=== PATIENT | female | born 1955 | race Caucasian/White ===

== ENCOUNTER 2023-11-09 10:46 | Outpatient (OUT) | payer MEDICARE, MEDICAID, SELFPAY ==
[2023-11-09 11:12] LABS: Basophils Percent Auto 0.5 % (0.2-2.0); Eosinophils Absolute Auto 0.5 10^3/uL (0.0-0.7); Hematocrit 41.3 % (36.0-48.0); Hemoglobin 13.5 g/dL (12.0-16.0); Immature Granulocytes Abs Auto 0.01 10^3/uL (0.00-0.03); Immature Granulocytes Pct Auto 0.2 % (0.0-0.5); Lymphocytes Absolute Auto 2.2 10^3/uL (1.2-3.8); Lymphocytes Percent Auto 34.5 % (20.5-60.0); Mean Corpuscular HGB Conc 32.7 g/dL (29.9-35.2); Mean Corpuscular Volume 88.6 fL (81.0-99.0); Mean Platelet Volume 10.2 fL (9.5-13.5); Monocytes Absolute Auto 0.4 10^3/uL (0.3-0.8); Monocytes Percent Auto 6.3 % (1.7-12.0); Neutrophils Absolute Auto 3.3 10^3/uL (1.4-6.5); Neutrophils Percent Auto 51.5 % (43.0-75.0); Platelet Count 206 10^3/uL (150-450); Red Blood Count 4.66 10^6/uL (4.20-5.40); White Blood Count 6.4 10^3/uL (4.0-11.0)
[2023-11-09 12:00] LABS: Free T4 1.78 ng/dL (0.76-1.46)
[2023-11-09 12:14] LABS: Estimated Average Glucose 103 mg/dL; Glycohemoglobin A1C 5.2 % (4.5-6.2)
[2023-11-09 12:24] LABS: Alanine Aminotransferase 36 U/L (14-59); Albumin Globulin Ratio 0.9; Albumin Level 3.5 g/dL (3.4-5.0); Alkaline Phosphatase 59 U/L (46-116); Anion Gap 11.7; Aspartate Amino Transferase 19 U/L (15-37); BUN Creatinine Ratio 15.9; Bilirubin Direct 0.2 mg/dL (0.0-0.2); Bilirubin Total 0.7 mg/dL (0.2-1.0); Calcium 9.5 mg/dL (8.5-10.1); Carbon Dioxide 30.2 mmol/L (21.0-32.0); Chloride 106 mmol/L (98-107); Chol HDL Ratio 2.9; Cholesterol 164 mg/dL (<=200); Estimated GFR (African America 51 (>=60); Estimated GFR (Non-African Ame 42 (>=60); Free T3 2.25 pg/mL (2.18-3.98); Globulin 3.7 g/dL; Glucose 90 mg/dL (74-106); HDL Cholesterol 57 mg/dL (40-60); LDL Cholesterol Calculated 90.2 mg/dL; Potassium 3.9 mmol/L (3.5-5.1); Sodium 144 mmol/L (136-145); Thyroid Stimulating Hormone 0.595 uIU/mL (0.358-3.740); Total Protein 7.2 g/dL (6.4-8.2); Triglycerides 84 mg/dL (<=150); VLDL CHOLESTEROL 16.8 mg/dL
== END 2023-11-09 10:47 | disposition home or self-care (01) ==
LOC: LAB 10:50
PROVIDERS: PCP Family Medicine; Visit Provider Family Medicine
DX: R73.03 Prediabetes (principal); Z79.899 Other long term (current) drug therapy; E78.5 Hyperlipidemia, unspecified; E03.9 Hypothyroidism, unspecified
CPT/HCPCS: 36415; 80048; 80061; 80076; 83036; 84439; 84443; 84481; 85025

== ENCOUNTER 2024-02-21 15:13 | Outpatient (OUT) | payer MEDICARE, MEDICAID, SELFPAY ==
--- NOTE | 2024-02-21 15:45 | MM_ITS ---
Patient Name: HEIDI ZAVALA MR#: [id number] : 1955 Exam Date: 02/21/2024 Ordering Doctor: DR Carroll Archibald . RADIOLOGY REPORT PROCEDURE: MM TOMOSYNTHESIS SCREENING BI COMPARISON: MG MAMM SCREEN DARNELL W CAD, 06/20/2018. INDICATIONS: Screening Calculator Name NCI Breast Cancer Risk Assessment Tool 5 Year Breast Cancer Risk 2.80% Lifetime Breast Cancer Risk 7.80% Personal Breast Cancer No Personal Ovarian Cancer No Treatments None Family Cancers None LOCATION: [facility] BREAST COMPOSITION: There are scattered areas of fibroglandular density. FINDINGS: DIAGNOSTIC CATEGORY 1--NEGATIVE. RIGHT BREAST: No significant suspicious finding. No significant change has occurred. LEFT BREAST: No significant suspicious finding. No significant change has occurred. RECOMMENDATIONS: ROUTINE MAMMOGRAM AND CLINICAL EVALUATION IN 12 MONTHS. PLEASE NOTE: A NORMAL MAMMOGRAM DOES NOT EXCLUDE THE POSSIBILITY OF BREAST CANCER. A CLINICALLY SUSPICIOUS PALPABLE LUMP SHOULD BE BIOPSIED. Dictated by: Sam Ruiz M.D. on 02/22/2024 at 07:23 Approved by: Sam Ruiz M.D. on 02/22/2024 at 07:25
== END 2024-02-21 15:14 | disposition home or self-care (01) ==
LOC: MAMMO 15:14
PROVIDERS: PCP Family Medicine; Visit Provider Family Medicine
DX: Z12.31 Encounter for screening mammogram for malignant neoplasm of breast (principal)
CPT/HCPCS: 77063; 77067

== ENCOUNTER 2024-10-31 09:18 | Outpatient (OUT) | payer MEDICARE, MEDICAID, SELFPAY ==
[2024-10-31 09:40] LABS: Basophils Percent Auto 0.2 % (0.2-2.0); Eosinophils Absolute Auto 0.2 10^3/uL (0.0-0.7); Eosinophils Percent Auto 2.6 % (0.9-7.0); Hematocrit 41.5 % (36.0-48.0); Hemoglobin 13.8 g/dL (12.0-16.0); Immature Granulocytes Abs Auto 0.01 10^3/uL (0.00-0.03); Immature Granulocytes Pct Auto 0.2 % (0.0-0.5); Lymphocytes Absolute Auto 2.5 10^3/uL (1.2-3.8); Lymphocytes Percent Auto 43.1 % (20.5-60.0); Mean Corpuscular HGB Conc 33.3 g/dL (29.9-35.2); Mean Corpuscular Hemoglobin 29.6 pg (26.7-34.0); Mean Corpuscular Volume 88.9 fL (81.0-99.0); Mean Platelet Volume 10.4 fL (9.5-13.5); Monocytes Absolute Auto 0.4 10^3/uL (0.3-0.8); Monocytes Percent Auto 6.3 % (1.7-12.0); Neutrophils Absolute Auto 2.7 10^3/uL (1.4-6.5); Neutrophils Percent Auto 47.6 % (43.0-75.0); Platelet Count 165 10^3/uL (150-450); Red Blood Count 4.67 10^6/uL (4.20-5.40); Red Cell Distribution Width 12.5 % (11.0-15.0); White Blood Count 5.7 10^3/uL (4.0-11.0)
[2024-10-31 09:53] LABS: Estimated Average Glucose 105 mg/dL; Glycohemoglobin A1C 5.3 % (4.5-6.2)
[2024-10-31 10:29] LABS: Alanine Aminotransferase 23 U/L (14-59); Albumin Globulin Ratio 1.1; Albumin Level 3.7 g/dL (3.4-5.0); Alkaline Phosphatase 60 U/L (46-116); Anion Gap 10.6; Aspartate Amino Transferase 15 U/L (15-37); BUN Creatinine Ratio 23.4; Bilirubin Direct 0.2 mg/dL (0.0-0.2); Bilirubin Total 0.7 mg/dL (0.2-1.0); Calcium 9.4 mg/dL (8.5-10.1); Carbon Dioxide 31.4 mmol/L (21.0-32.0); Chloride 107 mmol/L (98-107); Chol HDL Ratio 2.7; Cholesterol 163 mg/dL (<=200); Estimated GFR (African America 59 (>=60 mL/min/1.73m^2); Estimated GFR (Non-African Ame 48 (>=60 mL/min/1.73m^2); Free T3 2.76 pg/mL (2.18-3.98); Globulin 3.3 g/dL; Glucose 92 mg/dL (74-106); HDL Cholesterol 60 mg/dL (40-60); LDL Cholesterol Calculated 77.8 mg/dL; Sodium 145 mmol/L (136-145); Triglycerides 126 mg/dL (<=150); VLDL CHOLESTEROL 25.2 mg/dL
[2024-10-31 12:00] LABS: Free T4 1.68 ng/dL (0.76-1.46)
== END 2024-10-31 09:19 | disposition home or self-care (01) ==
LOC: LAB 09:20
PROVIDERS: PCP Family Medicine; Visit Provider Family Medicine
DX: R73.03 Prediabetes (principal); N18.31 Chronic kidney disease, stage 3a; Z79.899 Other long term (current) drug therapy; E78.5 Hyperlipidemia, unspecified; E03.9 Hypothyroidism, unspecified
CPT/HCPCS: 36415; 80048; 80061; 80076; 83036; 84439; 84443; 84481; 85025

== ENCOUNTER 2025-06-03 13:56 | Outpatient (OUT) | payer MEDICARE, MEDICAID, SELFPAY ==
--- OUTSIDE RECORDS SUMMARY | 2025-06-03 14:01 | XMS_ITS | Clinical Summary ---
Author Organization [facility] Address [address] [place] [address] Care Team Providers Care Client Application Support Engineer Name Role Phone Carroll Archibald MD Primary Care Provider [phone] Carroll Archibald MD Unavailable Allergies No known active allergies Medications latanoprost (Xalatan) 0.005 % ophthalmic solution Administer 1 drop into both eyes in the morning. Active calcium carbonate 1500 (600 Ca) MG tablet Take 1 tablet by mouth in the morning and 1 tablet before bedtime. Active B Complex-C (b complex-vitamin c) tablet Take 1 tablet by mouth in the morning. Active cholecalciferol (Vitamin D-3) 25 MCG (1000 UT) tablet Take 1,000 Units by mouth in the morning. Active cyanocobalamin (Vitamin B-12) 500 MCG tablet Take 500 mcg by mouth in the morning. Active ondansetron ODT (Zofran-ODT) 4 MG disintegrating tabletIndications: COVID-19 Take 1 tablet (4 mg) by mouth every 6 (six) hours if needed for nausea or vomiting 20 tablet 1 10/12/19 24 Active celecoxib (CeleBREX) 200 MG capsuleIndications :Generalized osteoarthritis of multiple sites Take 1 capsule (200 mg) by mouth Daily 90 capsule 3 04/12/20 24 Active dicyclomine (Bentyl) 20 MG tabletIndications: Irritable bowel syndrome with diarrhea Take 1 tablet (20 mg) by mouth 3 (three) times a day as needed (3 times daily as needed) 90 tablet 5 07/02/20 24 Active clobetasol (Temovate) 0.05 % cream 07/13/20 24 Active estradiol (Estrace) 0.1 MG/GM vaginal cream 08/20/20 24 Active omeprazole (PriLOSEC) [address] capsuleIndications :Gastroesophageal reflux disease without esophagitis TAKE 1 CAPSULE TWICE DAILY 180 capsule 3 12/04/19 25 Active ALPRAZolam (Xanax) 0.5 MG tabletIndications: Generalized anxiety disorder TAKE 1 TABLET 3 TIMES A DAYAS NEEDED FOR ANXIETY 270 tablet 01/25/20 25 Active atorvastatin (Lipitor) 10 MG tabletIndications: Dyslipidemia Take 1 tablet (10 mg) by mouth at bedtime 90 tablet 3 01/25/20 25 Active levothyroxine (Synthroid, Levoxyl) 88 MCG tabletIndications: Adult hypothyroidism TAKE 1 TABLET EVERY MORNINGBEFORE A MEAL 90 tablet 3 02/26/20 25 Active Active Problems Problem Noted Date Diagnosed Date Lichen sclerosus 07/02/2024 CKD stage 3b, GFR 30-44 ml/min 04/12/2024 Assessment & Plan (04/12/2024 1:55 PM EDT): Renal function stable Adult hypothyroidism 10/25/2023 Arthralgia of left ankle or foot 10/25/2023 Chronic constipation 10/25/2023 Dyslipidemia 10/25/2023 Generalized anxiety disorder 10/25/2023 Assessment & Plan (10/17/2024 2:22 PM EST): Symptoms stable without celexa and monitor. Use xanax PRN. Assessment & Plan (04/12/2024 1:54 PM EDT): Symptoms controlled with medication and continue. Use xanax PRN. Assessment & Plan (10/25/2023 3:39 PM EST): Symptoms controlled with medication and continue. Use xanax PRN. Gastroesophageal reflux disease without esophagi tis 10/25/2023 Assessment & Plan (10/17/2024 2:21 PM EST): Symptoms controlled with omeprazole and continue. Assessment & Plan (04/12/2024 1:54 PM EDT): Symptoms controlled with omeprazole and continue. Assessment & Plan (10/25/2023 3:38 PM EST): Symptoms controlled with omeprazole and continue. Major depressive disorder, recurrent episode, mi ld 10/25/2023 Assessment & Plan (10/17/2024 2:22 PM EST): Symptoms stable without celexa and monitor. Assessment & Plan (04/12/2024 1:54 PM EDT): Symptoms controlled with medication and continue. Assessment & Plan (10/25/2023 3:39 PM EST): Symptoms controlled with medication and continue. Generalized osteoarthritis of multiple sites 12/2023 Assessment & Plan (10/17/2024 2:22 PM EST): Pain stable and continue celebrex. Increase activity and walk regularly. Assessment & Plan (04/12/2024 1:54 PM EDT): Pain stable and continue celebrex. Increase activity and walk regularly. Assessment & Plan (10/25/2023 3:39 PM EST): Pain stable and continue celebrex. Increase activity and walk regularly. Osteopenia of left thigh 10/25/2023 Sigmoid diverticulitis 10/25/2023 Sigmoid diverticulosis 10/25/2023 Vertigo 10/25/2023 Prediabetes 10/25/2023 Primary osteoarthritis of right knee 10/25/2023 Encounter for long-term current use of medicatio n 10/25/2023 Family History Medical History Relation Name Comments Hypertension Father Alzheimer's disease Mother Relation Name Status Comments Father Mother Alive Social History Tobacco Use Types Packs/Day Years Used Date Smoking Tobacco: Former Cigarettes 1 29 0 08/22/1968 - 08/22/1997 Tobacco Cessation:Counseling Given: Not Answered Alcohol Use Standard Drinks/Week Comments Not Currently 0 (1 standard drink = 0.6 oz pur e alcohol) Social Connection and Isolation Panel Answer Date Recorded In a typical week, how many times do you talk on the phone with family, friends, or neighbors? More than three times a week 10/18/2023 How often do you get togethe r with friends or relatives? Once a week 10/18/2023 How often do you attend chur ch or rastafarian services? Never 10/18/2023 Do you belong to any clubs o r organizations such as confucianist groups, unions, fraternal or athletic groups, or school groups? No 10/18/2023 How often do you attend meet ings of the clubs or organizations you belong to? Never 10/18/2023 Are you , , di vorced, , never , or living with a partner? 10/18/2023 AUDIT-C Answer Date Recorded Q1: How often do you have a drink containing alcohol? Never 10/18/2023 Q2: How many drinks containi ng alcohol do you have on a typical day when you are drinking? Patient does not drink Q3: How often do you have si x or more drinks on one occasion? Never 10/18/2023 Overall Financial Resource Strain (CARDIA) Answe r Date Recorded How hard is it for you to pa y for the very basics like food, housing, medical care, and heating? Not very hard 10/18/2023 [facility] - Occupational Stress Questionnaire Answer Date Recorded Do you feel stress - tense, restless, nervous, or anxious, or unable to sleep at night because your mind is troubled all the time - these days? Rather much 10/18/2023 Exercise Vital Sign Answer Date Recorde d On average, how many days pe r week do you engage in moderate to strenuous exercise (like a brisk walk)? 0 days 10/18/2023 On average, how many minutes do you engage in exercise at this level? 0 min 10/18/2023 Hunger Vital Sign Answer Date Recorded Within the past 12 months, y ou worried that your food would run out before you got the money to buy more. Never true 10/18/19 24 Within the past 12 months, t he food you bought just didn't last and you didn't have money to get more. Never true 10/18/2023 PRAPARE - Transportation Answer Date Re corded In the past 12 months, has l ack of transportation kept you from medical appointments or from getting medications? Patient declined 10/18/2023 In the past 12 months, has l ack of transportation kept you from meetings, work, or from getting things needed for daily living? Patient declined 10/18/2023 Housing Stability Vital Sign Answer Richard e Recorded In the last 12 months, was t here a time when you were not able to pay the mortgage or rent on time? No 10/18/2023 In the last 12 months, how many places have you lived? 1 10/18/2023 In the last 12 months, was t here a time when you did not have a steady place to sleep or slept in a long term (including now)? No 10/18/2023 Comments Unknown Sex and Gender Information Value Date Recorded Sex Assigned at Not on file Legal Sex Female 6:53 PM EDT Gender Identity Not on file Sexual Orientation Not on file Last Filed Vital Signs Vital Sign Reading Time Taken Comments Blood Pressure 140/66 10/17/2024 1:19 PM EST Pulse 82 10/17/2024 1:19 PM EST Temperature 36.6 C (97.8 F) 10/17/2024 1:19 PM EST Respiratory Rate 22 10/17/2024 1:19 PM EST Oxygen Saturation 96% 10/17/2024 1:19 PM EST Inhaled Oxygen Concentration - - Weight 70.8 kg (156 lb) 10/17/2024 1:19 PM EST Height 154.9 cm (5' 1 ) 10/17/2024 1:19 PM EST Body Mass Index 29.48 10/17/2024 1:19 PM EST Plan of Treatment Health Maintenance Due Date Last Done Comments CT Colonography 1955 FIT-DNA 1955 FIT 1955 FOBT 1955 Medicare Annual Wellness (AWV) 1955 Sigmoidoscopy 1955 Pneumococcal Vaccine: 65+ Years (1 of 1 - PCV) 003 Mammogram 02/21/2025 02/22/2024 Influenza Vaccine (#1) 2025 Colonoscopy 02/07/2029 02/07/2019 Colorectal Cancer Screening 02/07/2029 Procedures Procedure Name Priority Date/Time Associated Diagnosis Comments MM TOMOSYNTHESIS SCREENING BI 02/22/2024 7:25 AM EDT from Last 3 Months or Most Recently Relevant to Health Maintenance Results * MM TOMOSYNTHESIS SCREENING BI (02/22/2024 7:25 AM EDT) Anatomical Region Laterality Modality Other 02/22/2024 7:25 AM EDT Narrative 02/22/2024 7:26 [place] [address] Mammography Report Signed Patient: AMBREEN THACKER MR#: [id number] : 1955 Acct:[id number] Age/Sex: 69 / F ADM Date: 02/21/24 Loc: MAMMO Attending Dr: Carroll Archibald M.D. Ordering Physician: Carroll Archibald M.D. Results: Date of Service: 02/21/24 Follow Up: Procedure(s): MM tomosynthesis screening BI Accession Number(s): [id number] cc: Carroll Archibald M.D. Patient Name: AMBREEN THACKER MR#: [id number] : 1955 Exam Date: 02/21/2024 Ordering Doctor: DR Carroll Archibald . RADIOLOGY REPORT PROCEDURE: MM TOMOSYNTHESIS SCREENING BI COMPARISON: MG MAMM SCREEN DARNELL W CAD, 06/20/2018. INDICATIONS: Screening Calculator Name NCI Breast Cancer Risk Assessment Tool 5 Year Breast Cancer Risk 2.80% Lifetime Breast Cancer Risk 7.80% Personal Breast Cancer No Personal Ovarian Cancer No Treatments None Family Cancers None LOCATION: [facility] BREAST COMPOSITION: There are scattered areas of fibroglandular density. FINDINGS: DIAGNOSTIC CATEGORY 1--NEGATIVE. RIGHT BREAST: No significant suspicious finding. No significant change has occurred. LEFT BREAST: No significant suspicious finding. No significant change has occurred. RECOMMENDATIONS: ROUTINE MAMMOGRAM AND CLINICAL EVALUATION IN 12 MONTHS. PLEASE NOTE: A NORMAL MAMMOGRAM DOES NOT EXCLUDE THE POSSIBILITY OF BREAST CANCER. A CLINICALLY SUSPICIOUS PALPABLE LUMP SHOULD BE BIOPSIED. Dictated by: Sam Ruiz M.D. on 02/22/2024 at 07:23 Approved by: Sam Ruiz M.D. on 02/22/2024 at 07:25 Dictated By: Sam Ruiz M.D. Signed By: 02/22/24725 DD/ 4 TD/TT: Firestop/Containment Worker: Procedure Note Radiology, Radiologist, MD - 02/22/2024 [place] [address] Mammography Report Signed Patient: AMBREEN THACKER KMR#: [id number] : 1955cct:[id number] Age/Sex: 69 / FADM Date: 02/21/24 Loc: MAMMO Attending Dr: Carroll Archibald M.D. Ordering Physician: Carroll Archibald M.D.Results: Date of Service: 02/21/24Follow Up: Procedure(s): MM tomosynthesis screening BI Accession Number(s): [id number] cc: Carroll Archibald M.D. Patient Name: AMBREEN THACKER MR#: [id number] : 1955 Exam Date: 02/21/2024 Ordering Doctor: DR Carroll Archibald . RADIOLOGY REPORT PROCEDURE: MM TOMOSYNTHESIS SCREENING BI COMPARISON: MG MAMM SCREEN DARNELL W CAD, 06/20/2018. INDICATIONS: Screening Calculator Name NCI Breast Cancer Risk Assessment Tool 5 Year Breast Cancer Risk 2.80% Lifetime Breast Cancer Risk 7.80% Personal Breast Cancer No Personal Ovarian Cancer No Treatments None Family Cancers None LOCATION: [facility] BREAST COMPOSITION: There are scattered areas of fibroglandulardensity. FINDINGS: DIAGNOSTIC CATEGORY 1--NEGATIVE. RIGHT BREAST: No significant suspicious finding. No significant changehas occurred. LEFT BREAST: No significant suspicious finding. No significant changehas occurred. RECOMMENDATIONS: ROUTINE MAMMOGRAM AND CLINICAL EVALUATION IN 12 MONTHS. PLEASE NOTE: A NORMAL MAMMOGRAM DOES NOT EXCLUDE THE POSSIBILITY OFBREAST CANCER. A CLINICALLY SUSPICIOUS PALPABLE LUMP SHOULD BE BIOPSIED. Dictated by: Sam Ruiz M.D. on 02/22/2024 at 07:23 Approved by: Sam Ruiz M.D. on 02/22/2024 at 07:25 Dictated By: Sam Ruiz M.D. Signed By:02/22/24725 DD/ TD/TT: Firestop/Containment Worker: Carroll Archibald MD [facility] Final Result from Last 3 Months or Most Recently Relevant to Health Maintenance Insurance MEDICARE MEDICAID [place] Care Teams Client Application Support Engineer Relationship Specialty Start Date End Date Carroll Archibald MD PCP - General Family Medicine 10/04/23 Carroll Archibald MD [address] [place] [address] PCP - [facility] 09/28/24
--- OUTSIDE RECORDS SUMMARY | 2025-06-03 14:01 | XMS_ITS | Clinical Summary ---
Author Organization [employer] tem Address [id number] [address] [place] [address] Care Team Providers Care Foreign Language Instructor Name Role Phone Carroll Archibald MD Primary Care Provider [phone] Allergies No known active allergies Medications omeprazole (PriLOSEC) 20 mg capsule Take 1 capsule (20 mg total) by mouth in the morning and 1 capsule (20 mg total) before bedtime. Active celecoxib (CeleBREX) 200 mg capsule Take 1 capsule (200 mg total) by mouth in the morning. Active ALPRAZolam (XANAX) 0.25 mg tablet Take 2 tablets (0.5 mg total) by mouth 3 (three) times a day as needed. Active predniSONE (DELTASONE) 20 mg tablet Take 1 tablet (20 mg total) by mouth as needed. Active cholecalciferol , vitamin D3, (VITAMIN D3) 1,000 units tablet Take 1 tablet (1,000 Units total) by mouth in the morning. Active calcium carbonate (OS-CARMEN) 600 mg (1,500 mg) tablet Take 1 tablet (600 mg total) by mouth in the morning. Active B-complex with vitamin C tablet Take 1 tablet by mouth in the morning. Active latanoprost (XALATAN) 0.005 % ophthalmic solution Administer 1 drop to both eyes in the morning. 9 Active atorvastatin (LIPITOR) 10 mg tablet Take 1 tablet (10 mg total) by mouth in the morning. Active levothyroxine (SYNTHROID, LEVOTHROID) 88 MCG tablet Take 1 tablet (88 mcg total) by mouth in the morning. 4 Active dicyclomine (BENTYL) 20 mg tablet Take 1 tablet (20 mg total) by mouth Three times daily as needed. Active meclizine (ANTIVERT) 25 mg tablet Chew 1 tablet (25 mg total) and swallow daily as needed for dizziness. Active acidophilus-pec tin, citrus 25 million cell -100 mg tablet Take 1 tablet by mouth daily with breakfast. Active estradioL (ESTRACE) 0.01 % (0.1 mg/gram) vaginal creamIndication s:Vaginal irritation Insert 1 g into the vagina in the morning. 42.5 g 1 5 Active clobetasoL (TEMOVATE) 0.05 % creamIndication s:Vulvar itching Apply 1 Application topically in the morning and 1 Application before bedtime. 30 g 5 Active clobetasoL (TEMOVATE) 0.05 % cream Apply 1 Application topically in the morning and 1 Application before bedtime. 30 g 5 Active Active Problems No known active problems Resolved Problems Problem Noted Date Diagnosed Date Resolved Date Chest pain, unspecified type 10/07/2023 07/12/2024 Encounters Date Type Department Care Team Description 05/30/2025 Refill [facility] [address] [facility] [place] [address] Tyra Neal RN from Last 3 Months Immunizations Immunization Administration Dates Next Due COVID-19, mRNA, LNP-S, PF, 30mcg/0.3mL Dose 10/20,10/14/2020 Family History Medical History Relation Name Comments Ulcers Father Alzheimer's disease Mother Mom Arthritis Mother Mom Hypertension Mother Mom COPD Sister Sister Relation Name Status Comments Brother Alive Father Mother Mom Sister Sister Alive Son Alive Social History Tobacco Use Types Packs/Day Years Used Date Smoking Tobacco: Former Cigarettes 1 32.6 0 01/20/1969 - 2001 Smokeless Tobacco: Never Tobacco Cessation:Counseling Given: Not Answered Alcohol Use Standard Drinks/Week Comments Not Currently 0 (1 standard drink = 0.6 oz pur e alcohol) Childcare Answer Date Recorded Childcare Unknown 01/26/2019 Employment Answer Date Recorded Employment Unknown 01/26/2019 Hunger Screening Answer Date Recorded Within the past 12 months we worried whether our food would run out before we got money to buy more. Never True 11/05/2024 Within the past 12 months th e food we bought just didn't last and we didn't have money to get more. Never True 11/05/2024 Purpose - Life Answer Date Recorded Purpose and direction in life Unknown Comments No Sex and Gender Information Value Date Recorded Sex Assigned at Not on file Legal Sex Female 11:39 AM EDT Gender Identity Female 11/14/2023 9:58 AM EDT Sexual Orientation Not on file Last Filed Vital Signs Vital Sign Reading Time Taken Comments Blood Pressure 152/80 02/19/2025 10:15 AM EDT Pulse 80 05/03/2024 9:50 AM EDT Temperature 36.9 C (98.4 F) 10/06/2023 11:03 PM EST Respiratory Rate 16 10/06/2023 11:45 PM EST Oxygen Saturation 98% 05/03/2024 9:50 AM EDT Inhaled Oxygen Concentration - - Weight 69.7 kg (153 lb 9.6 oz) 02/19/2025 10:15 AM EDT Height 154.9 cm (5' 1 ) 02/19/2025 10:15 AM EDT Body Mass Index 29.02 02/19/2025 10:15 AM EDT Plan of Treatment Health Maintenance Due Date Last Done Comments Depression Screening 1965 Adult BMI Follow Up Plan 1971 DTaP,Tdap and Td Vaccines (1 - Tdap) 01/29/1972 Zoster (Shingles) Vaccine (1 of 2) 2003 Fall Risk Screening 2018 COVID-19 Vaccine (5 - 2024-2 6 season) 2025 03/17/2022, 07/22/2021, 11/04/2020, Additional history exists Influenza Vaccine 04/22/2025 Adult BMI Screening 02/19/2026 02/19/2025 Tobacco Screening 02/19/2026 02/19/2025 Colonoscopy 02/07/2029 02/07/2019 Medical Devices Implanted Type Area Neon Sign Maker Device Identifier Shelf Expiration Date Model / Serial / Lot Lens Iol Ultrasert 15.5d - [id number] - [id number] Implanted:Qty: 1 on 02/12/2020 by Hafsa Landeros MD at [facility] Lens Left: [employer] 07/21/2022 [id number] 15.5 / [id number] / NA Insurance MEDICARE MEDICAID [place] Care Teams Foreign Language Instructor Relationship Specialty Start Date End Date Carroll Archibald MD PCP - General Family Medicine 01/26/19
--- OUTSIDE RECORDS SUMMARY | 2025-06-03 14:01 | XMS_ITS | Encounter Summary ---
Author Organization [employer] tem Address [facility] [id number] [address] [place] [address] Care Team Providers Care Well Shooter Name Role Phone Carroll Archibald MD Primary Care Provider [phone] Encounter Details Date Type Department Care Team (Late st Contact Info) Description 05/30/2025 Refill [facility] [address] [place] [address] Tyra Neal RN Social History Tobacco Use Types Packs/Day Years Used Date Smoking Tobacco: Former Cigarettes 1 32.6 0 01/20/1969 - 2001 Smokeless Tobacco: Never Alcohol Use Standard Drinks/Week Comments Not Currently [...] AM EDT Sexual Orientation Not on file documented as of this encounter Miscellaneous Notes * Telephone Encounter - Tyra Neal RN - 05/30/2025 3:00 PM EDT Pt called stating that her medicare prescription coverage is going to go up. Pt is requesting a refill of the clabetesol to be sent to [facility] [place]. Please advise. - Tyra Neal RN 253:02 PM documented in this encounter Plan of Treatment Not on file documented as of this encounter Visit Diagnoses Not on filedocumented in this encounter Care Teams Well Shooter Relationship Specialty Start Date End Date Carroll Archibald MD PCP - General Family Medicine 01/26/19 documented as of this encounter
--- OUTSIDE RECORDS SUMMARY | 2025-06-03 14:01 | XMS_ITS | Encounter Summary ---
Author Organization [facility] Address [address] [place] [address] Care Team Providers Care Statistical Developer Name Role Phone Carroll Archibald MD Primary Care Provider [phone] Carroll Archibald MD Unavailable Encounter Details Date Type Department Care Team (Late st Contact Info) Description 02/22/2024 Clinisync Result Encounter [facility] External Department Unsolicited Carroll Archibald MD [address] [place] [address] Social History Tobacco Use Types Packs/Day Years Used Date Smoking Tobacco: Former Cigarettes 1 29 0 08/22/1968 - 08/22/1997 Alcohol Use Standard Drinks/Week Comments Not Currently [...] often do you attend chur ch or druze services? Never 10/18/2023 Do you belong to any clubs o r organizations such as baptist groups, unions, fraternal or athletic groups, or [...] care, and heating? Not very hard 10/18/2023 [facility] - Occupational Stress [...] place to sleep or slept in a group home (including now)? No 10/18/2023 Comments Unknown Sex and Gender Information Value Date Recorded Sex Assigned at Not on file Legal Sex Female 6:53 PM EDT Gender Identity Not on file Sexual Orientation Not on file documented as of this encounter Plan of Treatment Not on file documented as of this encounter Procedures Procedure Name Priority Date/Time Associated Diagnosis Comments MM TOMOSYNTHESIS SCREENING BI 02/22/2024 7:25 AM EDT documented in this encounter Results * MM TOMOSYNTHESIS SCREENING BI (02/22/2024 7:25 AM EDT) Anatomical Region Laterality Modality Other 02/22/2024 7:25 AM EDT Narrative 02/22/2024 7:26 [place] [address] Mammography Report Signed Patient: AMBREEN THACKER MR#: [id number] : 1955 Acct:[id number] Age/Sex: 69 / F ADM Date: 02/21/24 Loc: MAMMO Attending Dr: Carroll Archibald M.D. Ordering Physician: Carroll Archibald M.D. Results: Date of Service: 02/21/24 Follow Up: Procedure(s): MM tomosynthesis screening BI Accession Number(s): [id number] cc: Carroll Archibald M.D. Patient Name: AMBREEN THACKER MR#: [id number] : 1955 Exam Date: 02/21/2024 Ordering Doctor: DR Carroll Archibald . RADIOLOGY REPORT PROCEDURE: MM TOMOSYNTHESIS SCREENING BI COMPARISON: MG MAMM SCREEN DARNELL W CAD, 06/20/2018. INDICATIONS: Screening Calculator Name NCI Breast Cancer Risk Assessment Tool 5 Year Breast Cancer Risk 2.80% Lifetime Breast Cancer Risk 7.80% Personal Breast Cancer No Personal Ovarian Cancer No Treatments None Family Cancers None LOCATION: [facility] BREAST COMPOSITION: There are scattered areas [...] M.D. Signed By: 02/22/24725 DD/ 4 TD/TT: Body Straightener: Procedure Note Radiology, Radiologist, MD - 02/22/2024 [place] [address] Mammography Report Signed Patient: AMBREEN THACKER KMR#: [id number] : 1955cct:[id number] Age/Sex: 69 / FADM Date: 02/21/24 Loc: MAMMO Attending Dr: Carroll Archibald M.D. Ordering Physician: Carroll Archibald M.D.Results: Date of Service: 02/21/24Follow Up: Procedure(s): MM tomosynthesis screening BI Accession Number(s): [id number] cc: Carroll Archibald M.D. Patient Name: AMBREEN THACKER MR#: [id number] : 1955 Exam Date: 02/21/2024 Ordering Doctor: DR Carroll Alanis RADIOLOGY REPORT PROCEDURE: MM TOMOSYNTHESIS SCREENING BI COMPARISON: MG MAMM SCREEN DARNELL W CAD, 06/20/2018. INDICATIONS: Screening Calculator Name NCI Breast Cancer Risk Assessment Tool 5 Year Breast Cancer Risk 2.80% Lifetime Breast Cancer Risk 7.80% Personal Breast Cancer No Personal Ovarian Cancer No Treatments None Family Cancers None LOCATION: [facility] BREAST COMPOSITION: There are scattered areas [...] By: Sam Ruiz M.D. Signed By:02/22/24725 DD/ 4 TD/TT: Body Straightener: Carroll Archibald MD [facility] Final Result documented in this encounter Visit Diagnoses Not on filedocumented in this encounter Care Teams Statistical Developer Relationship Specialty Start Date End Date Carroll Archibald MD PCP - General Family Medicine 10/04/23 Carroll Archibald MD [address] [place] [address] PCP - ACO Reach 09/28/24 documented as of this encounter
--- OUTSIDE RECORDS SUMMARY | 2025-06-03 14:01 | XMS_ITS | Encounter Summary ---
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 Name Role Phone Carroll Archibald MD Primary Care Provider [phone] Carroll Archibald MD Primary Care Provider [phone] Carroll Archibald MD Unavailable Encounter Details Date Type Department Care Team (Late st Contact Info) Description 09/20/2023 Orders Only [facility] [address] [place] [address] Carroll Archibald MD [address] [place] [address] Social History Tobacco Use Types Packs/Day Years Used Date Smoking Tobacco: Former Cigarettes 1 29 0 08/22/1968 - 08/22/1997 Alcohol Use Standard Drinks/Week Comments Not Currently 0 (1 standard drink = 0.6 oz pur e alcohol) Comments Unknown Sex and Gender Information Value Date Recorded Sex Assigned at Not on file Legal Sex Female 6:53 PM EDT Gender Identity Not on file Sexual Orientation Not on file documented as of this encounter Plan of Treatment Not on file documented as of this encounter Visit Diagnoses Not on filedocumented in this encounter Care Teams Footwear Production Machine Operator Relationship Specialty Start Date End Date Carroll Archibald MD PCP - General Cardiology 02/02/23 10/03/23 Carroll Archibald MD PCP - General Family Medicine 10/04/23 Carroll Archibald MD [address] [place] [address] PCP - ACO Reach 09/28/24 documented as of this encounter
--- OUTSIDE RECORDS SUMMARY | 2025-06-03 14:01 | XMS_ITS | Clinical Summary ---
Author Organization [facility] 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 Active calcium carbonate 600 MG TABS tablet Take 1 tablet by mouth 2 times daily Active b complex vitamins capsule Take 1 capsule by mouth daily Active vitamin C (ASCORBIC ACID) 500 MG tablet Take 500 mg by mouth daily Active vitamin B-12 (CYANOCOBALAMIN ) 500 MCG tablet Take 500 mcg by mouth daily Active Cholecalciferol (VITAMIN D3 PO) Take 1 tablet by mouth daily Active acetaZOLAMIDE (DIAMOX) 125 MG tablet Take 125 mg by mouth every 6 hours Active UNKNOWN TO PATIENT Multiple eye drops, patientt will bring in 05/24/2020 Active S-Adenosylmethi onine (ENMA-E) 200 MG TABS Take 1 tablet by mouth daily Active Active Problems Problem Noted Date Diagnosed Date Ghost cell glaucoma, 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, left eye 05/15/2020 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 Family History Medical History Relation Name Comments Heart Disease Mother High Blood Pressure Mother Relation Name Status Comments Father Mother Social History Tobacco Use Types Packs/Day Years Used Date Smoking Tobacco: Former Cigarettes 1.5 31 1 - 08/20/2001 Smokeless Tobacco: Never Alcohol Use Standard Drinks/Week Comments Never 0 (1 standard drink = 0.6 oz pur e alcohol) AUDIT-C Answer Date Recorded Frequency of Alcohol Consumption Never 08/20/2019 Average Number of Drinks Not on file 019 Frequency of Binge Drinking Not on file 07/24 Comments No Sex and Gender Information Value Date Recorded Sex Assigned at Not on file Legal Sex Female 3:35 PM EST Gender Identity Not on file Sexual Orientation Not on file Last Filed Vital Signs Vital Sign Reading Time Taken Comments Blood Pressure 109/54 05/24/2020 12:00 PM EDT Pulse 82 05/24/2020 11:58 AM EDT Temperature 36.4 C (97.5 F) 05/24/2020 11:58 AM EDT Respiratory Rate 20 05/24/2020 11:58 AM EDT Oxygen Saturation 100% 05/24/2020 12:00 PM EDT Inhaled Oxygen Concentration - - Weight 72.1 kg (159 lb) 05/24/2020 8:46 AM EDT Height 157.5 cm (5' 2 ) 05/24/2020 8:46 AM EDT Body Mass Index 29.08 05/24/2020 8:46 AM EDT Plan of Treatment Not on file Insurance MEDICARE MEDICAID [place] Care Teams Container Shop Welder Relationship Specialty Start Date End Date Carroll Archibald MD [address] [place] [address] PCP - General Family Medicine 08/17/19
--- OUTSIDE RECORDS SUMMARY | 2025-06-03 14:03 | XMS_ITS | CCD ---
Author Organization [facility] Care Team Providers Care Meat Loiner Name Role Phone Carroll Avitia Primary Care Provider CONNIE MENDEZ Referring Unavailable NADERER, CARROLL MARIEE Primary Care Unavailabl e CM, JOSE T Admitting Unavailable CM, JOSE T Attending Unavailable NADERERCARROLL Primary Care Unavailabl e CM, JOSE T Admitting Unavailable CM, JOSE T Attending Unavailable NADERERCARROLL Primary Care Unavailabl e CM, JOSE T Admitting Unavailable CM, JOSE T Attending Unavailable NADERECARROLL Ha Primary Care UnavailCarroll Conteh MD Primary Care Provider SADI, DR CARROLL Oconnor Attending Unavailable Zieber, DR Vargas Consulting Unavailable NADERER, DR CARROLL Oconnor Primary Care Unavailable NADERER, DR CARROLL Oconnor Admitting Unavailable NADERER, DR CARROLL Oconnor Consulting Unavailable NADERER, DR CARROLL Oconnor Attending Unavailable NADERER, DR CARROLL Oconnor Consulting Unavailable NADERER, DR CARROLL Oconnor Primary Care Unavailable NADERER, DR CARROLL Oconnor Admitting Unavailable NADERER, DR CARROLL Oconnor Primary Care Unavailable Zieber, DR Vargas Consulting Unavailable NADERER, DR CARROLL Oconnor Admitting Unavailable NADERER, DR CARROLL Oconnor Attending Unavailable NADERER, DR CARROLL Oconnor Consulting Unavailable Sadi DAWN, Carroll Primary Care Provider [phone] HARMAN JACKSON Referring Unavailable NADERER, CARROLL Primary Care Unavailable CHASITY LONG Referring Unavailable NADERER, CARROLL Primary Care Unavailable HAL LOBO Attending Unavailable SHAKIRA MEJIA Referring Unavailable NADERELeland, CARROLL Primary Care Unavailable CHASITY LONG Attending Unavailable CHASITY LONG Referring Unavailable NADERER, CARROLL Primary Care Unavailable CHASITY LONG Referring Unavailable NADERER, CARROLL Primary Care Unavailable CHASITY LONG Referring Unavailable NADERER, CARROLL Primary Care Unavailable HAL LOBO Attending Unavailable HAL LOBO Referring Unavailable NADERER, CARROLL Primary Care Unavailable CHASITY LONG Referring Unavailable NADERER, CARROLL Primary Care Unavailable CHASITY LONG Referring Unavailable NADERER, CARROLL Primary Care Unavailable NADERER, CARROLL Primary Care Unavailable MAIRA OLIVERA Attending Unavailable EDI NATHAN Admitting Unavailable JARODMAIRA BANERJEE Attending Unavailable MAIRA OLIVERA Referring Unavailable NADERER, CARROLL Primary Care Unavailable ARIANA SCHUMACHER Attending Unavailable NADERER, CARROLL Referring Unavailable NADERER, CARROLL Primary Care Unavailable GENEVIEVE BENJAMIN Referring Unavailable NADERER, CARROLL Primary Care Unavailable Sadi DAWN, Carroll Primary Care Provider Carroll Avitia MD Primary Care Provider Carroll Avitia MD Unavailable CARROLL AVITIA Attending Unavailable NADERER, CARROLL Attending Unavailable NADERER, CARROLL Attending Unavailable NadCarroll lozano MD Primary Care Provider [phone] CARROLL AVITIA Referring Unavailable NADERER, CARROLL Primary Care Unavailable GENEVIEVE BENJAMIN Attending Unavailable NADERER, CARROLL Referring Unavailable NADERER, CARROLL Primary Care Unavailable GENEVIEVE BENJAMIN Attending Unavailable NADERER, CARROLL Referring Unavailable NADERER, CARROLL Primary Care Unavailable GENEVIEVE BENJAMIN Attending Unavailable NADERER, CARROLL Referring Unavailable NADERER, CARROLL Primary Care Unavailable SOURAVGENEVIEVE PINEDA Attending Unavailable NADERER, CARROLL Referring Unavailable NADERER, CARROLL Primary Care Unavailable SOURAVGENEVIEVE PINEDA Attending Unavailable NADERER, CARROLL Referring Unavailable NADERER, CARROLL Primary Care Unavailable Carroll Avitia MD Primary Care Provider Carroll Avitia MD Attending Provider Medications Current Medications Medication Drug Class(es) Dates Sig (Normalized) Sig (Original) Acetaminophen / oxyCODONE (1 source) Opioid Agonist Start: 05-24-2020 End: 05-24-2020 oxyCODONE-acetamin ophen (PERCOCET) 5-325 MG per tablet 1 tablet acetaZOLAMIDE 125 mg oral tablet (1 source) Carbonic Anhydrase Inhibitor take 1 tablet by mouth every six hours acetaZOLAMIDE (DIAMOX) 125 MG tablet Take 125 mg by mouth every 6 hours 0 Active ALPRAZolam 0.5 mg oral tablet (20 sources) Benzodiazepine Start: 04-29-2025 take 1 tablet by mouth three times daily as needed for anxiety Alprazolam 0.5 mg tablet Active 0.5 MG PO Three times daily as needed for anxiety April 29, 2025 12:00am Complies with drug therapy Start: 09-20-2023 End: 01-24-2025 ALPRAZolam (Xanax) 0.5 MG ta blet Indications: Generalized anxiety disorder (CMS/HCC) TAKE 1 TABLET 3 TIMES A DAYAS NEEDED FOR ANXIETY 270 tablet 01/24/2025 Active take 2 tablets by mo uth three times daily as needed ALPRAZolam (XANAX) 0.25 mg tablet Take 2 tablets (0.5 mg total) by mouth 3 (three) times a day as needed. Active take 1 tablet by rob th three times daily ALPRAZolam (XANAX) 0.25 mg tablet Take 1 tablet (0.25 mg total) by mouth 3 (three) times a day. Active atorvastatin 10 mg oral tablet (20 sources) HMG-CoA Reductase Inhibitor Start: 04-29-2025 take 1 tablet by mouth once daily at bedtime Atorvastatin 10 mg tablet Active 10 MG PO Daily at bedtime April 29, 2025 12:00am Complies with drug therapy Start: 12-20-2023 End: 01-24-2025 take 1 tablet by mouth at bedtime atorvastatin (Lipitor) 10 MG tablet Indications: Dyslipidemia (CMS/HCC) Take 1 tablet (10 mg) by mouth at bedtime 90 tablet 3 01/24/2025 Active b complex vitamins capsule (4 sources) take 1 capsule by mo uth once daily b complex vitamins capsule Take 1 capsule by mouth daily 0 Suspended take 1 capsule by mouth once joanne ly b complex vitamins capsule Take 1 capsule by mouth daily 0 Active B Complex-C (b complex-vitam in c) tablet (10 sources) take 1 tablet by rob th in the morning B Complex-C (b complex-vitamin c) tablet Take 1 tablet by mouth in the morning. Active B-complex with vitamin C tablet (13 sources) take 1 tablet by rob th in the morning B-complex with vitamin C tablet Take 1 tablet by mouth in the morning. Active take 1 tablet by mouth in the mo rning B-complex with vitamin C tablet Take 1 tablet by mouth in the morning. 0 Active take 1 tablet by mouth once paulina y B-complex with vitamin C tablet Take 1 tablet by mouth daily. 0 Active B-Complex With Vitamin C tablet (1 source) Start: 04-29-2025 take 1 tablet by mouth once daily B-Complex With Vitamin C tablet Active 1 TAB PO Daily April 29, 2025 12:00am Complies with drug therapy benzocaine 200 mg/ml / menthol 5 mg/ml topical spray (3 sources) Standardized Chemical Allergen Start: 07-12-2024 End: 07-26-2024 benzocaine-menthoL (DERMOPLAST) topical spray 1 Application calcium carbonate 1500 mg oral tablet (20 sources) Start: 04-29-2025 take 1 tablet by mouth twice daily Calcium Carbonate (Calcium 600) 600 mg calcium (1,500 mg) tablet Active 600 MG PO Twice daily April 29, 2025 12:00am Complies with drug therapy take 1 tablet by mouth in the mo rning calcium carbonate (OS-CARMEN) 600 mg (1,500 mg) tablet Take 1 tablet (600 mg total) by mouth in the morning. Active take 1 tablet by mouth once paulina y calcium carbonate (OS-CARMEN) 600 mg (1,500 mg) tablet Take 600 mg by mouth daily. 0 Active calcium chloride 0.0014 meq/ ml / potassium chloride 0.004 meq/ml / sodium chloride 0.103 meq/ml / sodium lactate 0.028 meq/ml injectable solution (2 sources) Start: 05-24-2020 lactated ringe rs infusion Start: 08-21-2019 lactated ringe rs infusion celecoxib 200 mg oral capsule (20 sources) Nonsteroidal Anti-inflammatory Drug Start: 04-29-2025 take 1 capsule by mouth once daily Celecoxib 200 mg capsule Active 200 MG PO Daily April 29, 2025 12:00am Complies with drug therapy Start: 09-22-2023 End: 04-12-2024 take 1 capsule by mouth once daily celecoxib (CeleBREX) 200 MG capsule Indications: Generalized osteoarthritis of multiple sites Take 1 capsule (200 mg) by mouth Daily 90 capsule 3 04/12/2024 Active cholecalciferol 0.025 mg oral tablet (20 sources) Vitamin D Start: 04-29-2025 take 1 tablet by mouth once daily Cholecalciferol (Vitamin D3) 25 mcg (1,000 unit) tablet Active 25 MCG PO Daily April 29, 2025 12:00am Complies with drug therapy take 1 tablet by mouth in the mo rning cholecalciferol, vitamin D3, (VITAMIN D3) 1,000 units tablet Take 1 tablet (1,000 Units total) by mouth in the morning. Active take 1 tablet by mouth once paulina y cholecalciferol, vitamin D3, (VITAMIN D3) 1,000 units tablet Take 1,000 Units by mouth daily. 0 Active take 1 tablet by mouth once paulina y Cholecalciferol (VITAMIN D3 PO) Take 1 tablet by mouth daily 0 Active take 1 tablet by mouth once paulina y Cholecalciferol (VITAMIN D3 PO) Take 1 tablet by mouth daily 0 Suspended clobetasol propionate 0.5 mg/ml topical cream (14 sources) Corticosteroid Start: 04-29-2025 Clobetasol 0.0 5 % cream Active 1 APPLIC TOPICAL Daily April 29, 2025 12:00am Complies with drug therapy Start: 02-19-2025 clobetasoL (TE MOVATE) 0.05 % cream Apply 1 Application topically in the morning and 1 Application before bedtime. 30 g 02/19/2025 Active Start: 07-13-2024 End: 11-05-2024 clobetasoL (TEMOVATE) 0.05 % cream Indications: Vulvar itching Apply 1 Application topically in the morning and 1 Application before bedtime. 30 g 11/05/2024 Active Start: 07-13-2024 clobetasol (Te movate) 0.05 % cream 07/13/2024 Active 1 ml dexamethasone phosphate 4 mg/ml injection (1 source) Corticosteroid Start: 05-24-2020 End: 05-24-2020 dexamethasone (DECADRON) injection 4 mg dicyclomine hydrochloride 20 mg oral tablet (20 sources) Anticholinergic Start: 04-29-2025 take 1 tablet by mouth three times daily as needed Dicyclomine 20 mg tablet Active 20 MG PO Three times daily as needed April 29, 2025 12:00am Complies with drug therapy Start: 07-02-2024 End: 07-02-2024 dicyclomine (Bentyl) 20 MG t ablet Indications: Irritable bowel syndrome with diarrhea Take 1 tablet (20 mg) by mouth 3 (three) times a day as needed (3 times daily as needed) 90 tablet 5 07/02/2024 Active 1 ml diphenhydrAMINE hydrochloride 50 mg/ml cartridge (1 source) Histamine-1 Receptor Antagonist Start: 05-24-2020 End: 05-24-2020 diphenhydrAMINE (BENADRYL) injection 12.5 mg estradiol 0.1 mg/ml vaginal cream (10 sources) Estrogen Start: 04-29-2025 Estradiol 0.01 % (0.1 mg/gram) cream Active 1 GM VAGINAL Daily April 29, 2025 12:00am for 14 days Complies with drug therapy Start: 08-20-2024 End: 11-05-2024 estradioL (ESTRACE) 0.01 % ( 0.1 mg/gram) vaginal cream Indications: Vaginal irritation Insert 1 g into the vagina in the morning. 42.5 g 1 11/05/2024 Active Start: 08-20-2024 estradiol (Est race) 0.1 MG/GM vaginal cream 08/20/2024 Active 2 ml fentaNYL 0.05 mg/ml injection (6 sources) Opioid Agonist Start: 05-24-2020 fentaNYL (SUBL IMAZE) injection 25 mcg Start: 05-15-2020 fentaNYL (SUBL IMAZE) injection 50 mcg Start: 05-15-2020 fentaNYL (SUBL IMAZE) injection 25 mcg Start: 08-21-2019 fentaNYL (SUBL IMAZE) injection 50 mcg Start: 08-21-2019 fentaNYL (SUBL IMAZE) injection 25 mcg 1 ml hydrALAZINE hydrochloride 20 mg/ml injection (1 source) Arteriolar Vasodilator Start: 05-24-2020 hydrALAZINE (APRESOLINE) injection 5 mg 1 ml HYDROmorphone hydrochloride 1 mg/ml cartridge (2 sources) Opioid Agonist Start: 05-24-2020 HYDROmorphone (DILAUDID) injection 0.5 mg 4 ml labetalol hydrochloride 5 mg/ml cartridge (1 source) beta-Adrenergic Johanne Start: 05-24-2020 labetalol (NORMODYNE;TRANDAT E) injection 5 mg lactobacillus acidophilus [id number] unt / pectin 100 mg oral tablet (10 sources) take 1 tablet by mouth once daily at breakfast acidophilus-pectin , citrus 25 million cell -100 mg tablet Take 1 tablet by mouth daily with breakfast. Active latanoprost 0.05 mg/ml ophthalmic solution (20 sources) Prostaglandin Analog Start: 04-29-2025 take 1 drop(s) into the eye(s) once daily Latanoprost 0.005 % drops Active 1 DROPS EYE-BOTH Daily April 29, 2025 12:00am Complies with drug therapy Start: 11-21-2018 take 1 drop(s) into the eye(s) in the morning latanoprost (XALATAN) 0.005 % ophthalmic solution Administer 1 drop to both eyes in the morning. 11/21/2018 Active Start: 11-21-2018 take 1 drop(s) into the eye(s) once daily latanoprost (XALATAN) 0.005 % ophthalmic solution Administer 1 drop to both eyes daily. 0 11/21/2018 Active levothyroxine sodium 0.088 mg oral capsule (20 sources) l-Thyroxine Start: 04-29-2025 take 1 capsule by mouth in the morning Levothyroxine 88 mcg capsule Active 88 MCG PO .AM April 29, 2025 12:00am before a meal Complies with drug therapy Start: 09-19-2023 End: 04-12-2024 take 1 tablet by mouth in the morning levothyroxine (SYNTHROID, LEVOTHROID) 88 MCG tablet Take 1 tablet (88 mcg total) by mouth in the morning. 09/19/2023 Active Start: 12-31-2018 End: 11-08-2023 take 1 tablet by mouth in the morning levothyroxine (SYNTHROID, LEVOTHROID) 112 MCG tablet Take 1 tablet (112 mcg total) by mouth in the morning. 0 12/31/2018 11/08/2023 Discontinued (Dose adjustment) 10 ml lidocaine hydrochloride 10 mg/ml injection (1 source) Antiarrhythmic, Amide Local Anesthetic Start: 08-21-2019 End: 08-21-2019 lidocaine PF 1 % injection 1 mL meclizine hydrochloride 25 mg chewable tablet (10 sources) Antiemetic meclizine (ANTIVERT) 25 mg tablet Chew 1 tablet (25 mg total) and swallow daily as needed for dizziness. Active 1 ml meperidine hydrochloride 50 mg/ml injection (1 source) Opioid Agonist Start: 05-24-2020 meperidine (DEMEROL) injection 12.5 mg nirmatrelvir-ritona vir (PAXLOVID) tablets (1 source) Start: 10-07-2023 End: 10-12-2023 nirmatrelvir-courtney navir (PAXLOVID) tablets Take 2 tablets by mouth in the morning and 2 tablets before bedtime. Do all this for 5 days. For doses of 2 tablets - Take one 150 mg nirmatrelvir (pink) tablet at the same time as one 100 mg ritonavir (white) tablet per dose.. 20 tablet 0 10/07/2023 10/12/2023 Active omeprazole 20 mg delayed release oral capsule (20 sources) Proton Pump Inhibitor Start: 04-29-2025 take 1 capsule by mouth twice daily Omeprazole 20 mg capsule,delayed release(DR/EC) Active 20 MG PO Twice daily April 29, 2025 12:00am Complies with drug therapy Start: 12-03-2024 omeprazole (Pr iLOSEC) [address] capsule Indications: Gastroesophageal reflux disease without esophagitis TAKE 1 CAPSULE TWICE DAILY 180 capsule 3 12/03/2024 Active ondansetron 4 mg disintegrating oral tablet (12 sources) Serotonin-3 Receptor Antagonist Start: 04-29-2025 take 1 tablet by mouth every six hours as needed for nausea and vomiting Ondansetron 4 mg tablet,disintegrating Active 4 MG PO Every 6 hours as needed for nausea and vomiting April 29, 2025 12:00am Complies with drug therapy Start: 10-12-2023 take 1 tablet by rob every six hours for nausea ondansetron ODT (Zofran-ODT) 4 MG disintegrating tablet Indications: COVID-19 Take 1 tablet (4 mg) by mouth every 6 (six) hours if needed for nausea or vomiting 20 tablet 1 10/12/2023 Active Start: 05-24-2020 End: 05-24-2020 ondansetron (ZOFRAN) injecti on 4 mg predniSONE 20 mg oral tablet (17 sources) predniSONE (DELT ASONE) 20 mg tablet Take 1 tablet (20 mg total) by mouth as needed. Active take 2 tablets by mo cox branson once daily as needed predniSONE (DELTASONE) 20 MG tablet Take 40 mg by mouth daily as needed 0 Active UNKNOWN TO PATIENT (1 source) vitamin b12 0.5 mg oral tablet (18 sources) Vitamin B12 Start: 04-29-2025 take 1 tablet by mouth once daily Cyanocobalamin (Vitamin B-12) 500 mcg tablet Active 500 MCG PO Daily April 29, 2025 12:00am Complies with drug therapy End: 11-08-2023 take 1 tablet by mouth in the morning cyanocobalamin (Vitamin B-12) 500 MCG tablet Take 500 mcg by mouth in the morning. Active Completed/Discontinued Medications Medication Drug Class(es) Dates Sig (Normalized) Sig (Original) acetaminophen 500 mg oral tablet (1 source) Start: 05-15-2020 End: 05-15-2020 acetaminophen (TYLENOL) tablet 1,000 mg Start: 05-15-2020 End: 05-15-2020 acetaminophen (TYLENOL) tabl et 1,000 mg ascorbic acid 500 mg oral tablet (8 sources) Vitamin C End: 11-08-2023 take 1 tablet by mouth in the morning ascorbic acid, vitamin C, (ascorbic acid with pedro pablo hips) 500 mg tablet Take 1 tablet (500 mg total) by mouth in the morning. 0 11/08/2023 Discontinued (Therapy completed) balanced salts plus (BSS) 500 mL (1 source) Start: 05-15-2020 End: 05-15-2020 balanced salts plus (BSS) 500 mL citalopram 20 mg oral tablet (7 sources) Serotonin Reuptake Inhibitor Start: 07-04-2023 End: 10-17-2024 take 1 tablet by mouth in the morning citalopram (CeleXA) 20 MG tablet Take 1 tablet by mouth in the morning. 07/04/2023 10/17/2024 Discontinued cyclopentolate hydrochloride 10 mg/ml ophthalmic solution (1 source) Start: 05-24-2020 End: 05-24-2020 cyclopentolate (CYCLOGYL) 1 % ophthalmic solution 1 drop dexamethasone 1 mg/ml / tobramycin 3 mg/ml ophthalmic suspension (3 sources) Aminoglycoside Antibacterial, Corticosteroid Start: 05-24-2020 End: 05-24-2020 tobramycin-dexameth asone (TOBRADEX) ophthalmic suspension 1 drop Start: 05-15-2020 End: 05-15-2020 tobramycin-dexamethasone (TO BRADEX) ophthalmic suspension 1 drop Start: 08-21-2019 End: 08-21-2019 tobramycin-dexamethasone (TO BRADEX) ophthalmic suspension 1 drop ibuprofen 800 mg oral tablet (4 sources) Nonsteroidal Anti-inflammatory Drug Start: 11-28-2018 End: 11-08-2023 take 1 tablet by mouth every eight hours as needed IBU 800 mg tablet Take 1 tablet (800 mg total) by mouth every 8 (eight) hours as needed. 0 11/28/2018 11/08/2023 Discontinued (Therapy completed) 2 ml midazolam 1 mg/ml injection (1 source) Benzodiazepine Start: 08-21-2019 End: 08-21-2019 midazolam (VERSED) injection 2 mg Start: 08-21-2019 End: 08-21-2019 midazolam (VERSED) injection 2 mg NONFORMULARY (8 sources) End: 05-23-2020 take 200 mg by mouth once daily NONFORMULARY Take 200 mg by mouth daily & E 0 05/23/2020 Discontinued (LIST CLEANUP) End: 05-23-[address] 1 drop in to both eyes nightly Lantanoprost .005% 0 05/23/2020 Discontinued (Therapy completed) take 200 mg by mouth once daily NONFORMULARY Take 200 mg by mouth daily & E 0 Suspended NONFORMULARY Kiara ce 1 drop into both eyes nightly Lantanoprost .005% 0 Suspended NONFORMULARY Kiara ce 1 drop into both eyes nightly Lantanoprost .005% 0 Active take 200 mg by mouth once daily NONFORMULARY Take 200 mg by mouth daily & E 0 Active phenylephrine hydrochloride 100 mg/ml ophthalmic solution (3 sources) alpha-1 Adrenergic Agonist Start: 05-24-2020 End: 05-24-2020 phenylephrine (CYRIL-SYNEPHRINE) 10 % ophthalmic solution 1 drop Start: 05-15-2020 End: 05-15-2020 phenylephrine (CYRIL-SYNEPHRIN E) 10 % ophthalmic solution 1 drop Start: 08-21-2019 End: 08-21-2019 phenylephrine (CYRIL-SYNEPHRIN E) 10 % ophthalmic solution 1 drop s-adenosylmethionine 200 mg oral tablet (5 sources) End: 11-08-2023 take 1 tablet by mouth once daily s-adenosylmethionine (-E) 200 mg tablet Take 200 mg by mouth daily. 0 11/08/2023 Discontinued (Therapy completed) tropicamide 10 mg/ml ophthalmic solution (2 sources) Anticholinergic Start: 05-15-2020 End: 05-15-2020 tropicamide (MYDRIACYL) 1 % ophthalmic solution 1 drop Start: 08-21-2019 End: 08-21-2019 tropicamide (MYDRIACYL) 1 % ophthalmic solution 1 drop Problems Active Problems Problem Classification Problem Date Documented Da te Episodic/Chronic Anxiety disorders (18 sources) Generalized anxiety disorder; Translations: [Generalized anxiety disorder] Onset: 4 07-02-2024 Chronic Chronic kidney disease (18 sources) Chronic kidney disease stage 3A ; Translations: [CKD stage 3a, GFR 45-59 ml/min] Onset: 4 04-12-2024 Chronic Conditions associated with dizziness or vertigo (11 sources) Vertigo; Translations: [Dizziness and giddiness] Onset: 4 10-25-2023 Episodic Diabetes mellitus without complication (13 sources) Prediabetes; Translations: [Prediabetes] Onset: 4 10-25-2023 Episodic Disorders of lipid metabolism (18 sources) Hyperlipidemia, unspecified; Translations: [Dyslipidemia] Onset: 2 10-25-2023 Chronic Diverticulosis and diverticulitis (20 sources) Diverticulitis of sigmoid colon; Translations: [Diverticulitis of large intestine without perforation or abscess without bleeding] Onset: 4 10-25-2023 Chronic Esophageal disorders (15 sources) Gastroesophageal reflux disease without esophagitis; Translations: [Gastro-esophageal reflux disease without esophagitis] Onset: 4 10-25-2023 Chronic Glaucoma (2 sources) Ghost cell glaucoma; 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] Onset: 0 05-24-2020 Chronic Heart valve disorders (4 sources) Nonrheumatic mitral (valve) insufficiency; Translations: [Nonrheumatic aortic (valve) insufficiency] Onset: 4 05-03-2024 Chronic Joint disorders and dislocations; trauma-related (1 source) Unspecified internal derangement of right knee; Translations: [Unspecified internal derangement of right knee] Onset: 4 Chronic Mood disorders (15 sources) Recurrent major depressive episodes, mild ; Translations: [Major depressive disorder, recurrent, mild] Onset: 4 10-25-2023 Chronic Osteoarthritis (20 sources) Degenerative joint disease involving multiple joints; Translations: [Polyosteoarthritis, unspecified] Onset: 4 10-25-2023 Chronic Other aftercare (10 sources) Long-term current use of drug therapy; Translations: [Other tea and 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] Onset: 4 10-25-2023 Episodic Other bone disease and musculoskeletal deformities (1 source) Other specified disorders of bone density and structure, left thigh; Translations: [OTH D/O BONE DEN STRUCT LT THIGH] Onset: 3 Episodic Other bone disease and musculoskeletal deformities (11 sources) Osteopenia; Translations: [Other specified disorders of bone density and structure, left thigh] Onset: 4 10-25-2023 Episodic Other eye disorders (1 source) H/O: L cataract extraction; Translations: [Cataract extraction status, left eye] 04-29-2025 Episodic Other female genital disorders (1 source) Pruritus of vagina; Translations: [Other specified noninflammatory disorders of vagina] 07-12-2024 Episodic Other gastrointestinal disorders (2 sources) Irritable bowel syndrome with diarrhea; Translations: [Irritable bowel syndrome with diarrhea] 07-03-2024 Chronic Other gastrointestinal disorders (1 source) Irritable bowel syndrome; Translations: [Mixed irritable bowel syndrome] 07-02-2024 Chronic Other gastrointestinal disorders (11 sources) Chronic constipation; Translations: [Other constipation] Onset: 4 10-25-2023 Episodic Other inflammatory condition of skin (3 sources) Pruritus of vulva; Translations: [Pruritus vulvae] 07-13-2024 Episodic Other nervous system disorders (1 source) H/O: retinal detachment; Translations: [Personal history of other diseases of the nervous system and sense organs] 04-29-2025 Episodic Other non-traumatic joint disorders (11 sources) Arthralgia of the ankle and/or foot; Translations: [Pain in left ankle and joints of left foot] Onset: 4 10-25-2023 Episodic Other skin disorders (6 sources) Lichen sclerosus et atrophicus; Translations: [Circumscribed scleroderma] Onset: 4 10-17-2024 Chronic Residual codes; unclassified (1 source) History of colonoscopy; Translations: [Other specified postprocedural states] 04-29-2025 Episodic Residual codes; unclassified (1 source) Past history of procedure; Translations: [Other specified postprocedural states] 04-29-2025 Episodic Retinal detachments; defects; vascular occlusion; and retinopathy (4 sources) Puckering of macula, left eye; Translations: [Macular pucker, left eye] Onset: 0 05-15-2020 Chronic Thyroid disorders (20 sources) Hypothyroidism, unspecified; Translations: [Hypothyroidism] Onset: 2 Chronic Unclassified (1 source) New Patient Onset: 4 Unclassified (1 source) Vaginal Itching Onset: 4 Viral infection (2 sources) COVID-19; Translations: [Disease caused by 2019-nCoV] Onset: 4 Past or Other Problems Problem Classification Problem Date Documented Date Episodic/Chronic Abdominal pain (4 sources) Left lower quadrant pain; Translations: [LEFT LOWER QUADRANT PAIN] Onset: 12-03-2021 Episodic Inflammatory diseases of female pelvic organs (4 sources) Acute vaginitis; Translations: [Acute vaginitis] Onset: 07-12-2024 07-12-2024 Episodic Nonspecific chest pain (17 sources) Chest pain, unspecified; Translations: [Chest pain] Onset: 10-06-2023 Resolved: 07-12-2024 07-12-2024 Episodic Other aftercare (4 sources) Other tea and 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; 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] Onset: 03-24-2022 Episodic Other aftercare (3 sources) Patient encounter status; Translations: [Other intermediate (current) drug therapy] Onset: 10-25-2023 10-25-2023 Episodic Other female genital disorders (3 sources) Other specified noninflammatory disorders of vagina; Translations: [Other specified noninflammatory disorders of vagina] Onset: 07-12-2024 Episodic Other female genital disorders (6 sources) Vaginal irritation; Translations: [Other specified noninflammatory disorders of vagina] Onset: 07-12-2024 08-20-2024 Episodic Other inflammatory condition of skin (1 source) Pruritus vulvae; Translations: [Pruritus vulvae] Onset: 08-07-2024 Episodic Residual codes; unclassified (1 source) Procedure and treatment not carried out because of patient's decision for other reasons; Translations: [Procedure and treatment not carried out because of patient's decision for other reasons] Onset: 10-06-2023 Episodic Retinal detachments; defects; vascular occlusion; and retinopathy (5 sources) Rhegmatogenous retinal detachment - macula off; Translations: [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 [place] [address] VIR YEAST CULTUREon 02-19-2025 YEAST CULTURE CULTURE RESULTS No yeast isolated at 5 days FUNGAL SMEAR No fungal elements seen On Direct Smear Normal [facility] Comment on above: Performed By: #### Y STCUL #### [facility] ([facility]) [address] [place] [address] VIR Surgical Pathologyon 024 Surgical Pathology Normal [facility] Comment on above: Result Comment: [facility] [address] [place] [address] Surgical Pathology Consultation Patient Name:AMBREEN THACKER:1955 (Age: 69)Gender:FTaken:4Reported:4Physician(s):Genevieve Benjamin M.D. ([phone])Copy To: Rec. #:[id number]: #[id number] Final Pathologic Diagnosis Right vulva - biopsy: - Lichen sclerosus Report Electronically Signed Out frank08/09/2024Micheal Renteria MD Interpretation performed at [facility], [address] [place] [address], License number: [id number]. Clinical History Vaginal irritation Gross Description Received in formalin, labeled LUCAS, right vulvar is a 0.3 x 0.2 cm punch biopsy. The specimen is filtered and entirely submitted in 1 cassette. The specimen is filtered and entirely submitted in one cassette. (1, ns, [id number], m6) MW mxw/07/31/2024NSK Specimen(s) Received Right vulvar biopsy Fee Codes(s): 1; 52092 VAGINITIS PANEL PCRon 2023 VAGINITIS PANEL PCR BACT. VAGINOSIS DNA Not detected (qualifier value) Qualitative results are reported based on detection and quantitation of targeted organism markers which include: Lactobacillus spp. (L. crispatus and L. jensenii), Gardnerella vaginalis, Atopobium vaginae, Bacterial Vaginosis Associated Bacteria-2 (BVAB-2) and Megasphaera-1 AIDE SPECIES DNA Not detected (qualifier value) Aide species not detected include: C. albicans, C. tropicalis, C. parapsilosis or C. dubliniensis AIDE KRUSEI DNA Not detected (qualifier value) No Aide krusei detected AIDE GLABRATA DNA Not detected (qualifier value) No Aide glabrata detected TRICHOMONAS VAG DNA Not detected (qualifier value) No Trichomonas vaginalis detected NOTE BD MAX Vaginal Panel has not been evaluated for patients under 18 years old. Results for these patients should be reviewed and assessed in accordance with clinical presentation to determine patient diagnosis. Normal [facility] Comment on above: Performed By: #### V PPCR #### [facility] ([id number]) [address] [place] [address], [address] [place] [address] XR CHEST 2 VWSon 10-07-2023 XR CHEST 2 VWS XR CHEST 2 VWS Chest 2 views History: Chest pain Comparison: None Findings: Chest 2 views. No focal opacity, effusion or pneumothorax. Cardiomediastinal silhouette is within normal limits. Impression: No evident acute cardiopulmonary process. Finalized by Greg Chadwick MD on 10/07/2023 12:04 AM Normal [facility] BASIC METABOLIC PANLon 10-06 Anion gap [Moles/Vol] 5 mmol/L Normal 5-15 [facility] Comment on above: Performed By: #### C BCA, 72122-0, PINR, 55116-5, BMP, 68210-0, 21509-9 #### [facility] ([id number]) [address] [place] [address] Calcium [Mass/Vol] 9.0 mg/dL Normal 8.5-10.5 [facility] Comment on above: Performed By: #### C BCA, 05421-1, PINR, 17157-2, BMP, 93835-4, 18439-6 #### [facility] ([id number]) [address] [place] [address] 29767 Chloride [Moles/Vol] 104 mmol/L Normal 98-109 [facility] Comment on above: Performed By: #### C BCA, 24903-4, PINR, 28102-2, BMP, 63315-6, 72825-0 #### [facility] ([id number]) [address] [place] [address] 00919 CO2 [Moles/Vol] 26 mmol/L Normal 22-32 [facility] Comment on above: Performed By: #### C BCA, 24677-4, PINR, 32746-6, BMP, 08494-0, 14166-5 #### [facility] ([id number]) [address] [place] [address] 80956 Creatinine [Mass/Vol] 1.17 mg/dL High 0.40-1.00 [facility] Comment on above: Result Comment: METH OD TRACEABLE TO IDMS STANDARD Performed By: #### C BCA, 89498-0, PINR, 43220-7, BMP, 80385-4, 74345-1 #### [facility] ([id number]) [address] [place] [address]90 GFR/1.73 sq M.predicted among non-blacks MDRD (S/P/Bld) [Vol rate/Area] 50 mL/min/{1.73_m2} Low >59 [facility] Comment on above: Result Comment: Reported eGFR is based on the CKD-EPI 2020 equation that does not use a race coefficient. Performed By: #### C BCA, 03135-3, PINR, 01332-0, BMP, 83853-0, 08579-3 #### [facility] ([id number]) [address] [place] [address] 18225 Glucose [Mass/Vol] 124 mg/dL High 65-99 [facility] Comment on above: Performed By: #### C BCA, 57148-8, PINR, 93421-7, BMP, 18985-8, 06355-1 #### [facility] ([id number]) [address] [place] [address] 90458 Potassium [Moles/Vol] 3.4 mmol/L Low 3.5-5.0 [facility] Comment on above: Performed By: #### C BCA, 48490-7, PINR, 26064-3, BMP, 33026-5, 45744-1 #### [facility] ([id number]) [address] [place] [address]1941 Sodium [Moles/Vol] 135 mmol/L Normal 134-146 [facility] Comment on above: Performed By: #### C BCA, 19083-6, PINR, 28977-5, BMP, 88482-4, 76331-8 #### [facility] ([id number]) [address] [place] [address] 04499 Urea nitrogen [Mass/Vol] 16 mg/dL Normal 5-27 [facility] Comment on above: Performed By: #### C BCA, 06690-7, PINR, 00687-9, BMP, 05151-6, 99315-9 #### [facility] ([id number]) [address] [place] [address] 80668 CBC AND AUTO DIFFon 10-06-19 24 ABSOLUTE BASOPHIL 0.0 X10E9/L Normal 0.0-0.2 [facility] Comment on above: Performed By: #### C BCA, 44791-3, PINR, 05467-7, BMP, 38426-3, 32926-2 #### [facility] ([id number]) [address] [place] [address] 13589 ABSOLUTE NEUTROPHIL 5.1 X10E9/L Normal 1.5-6.6 [facility] Comment on above: Performed By: #### C BCA, 41913-9, PINR, 00901-7, BMP, 30119-3, 06006-1 #### [facility] ([id number]) [address] [place] [address] 67070 Basophils/100 WBC (Bld) 0.3 % Normal [facility] Comment on above: Performed By: #### C BCA, 98699-5, PINR, 96952-6, BMP, 46059-3, 69182-0 #### [facility] ([id number]) [address] [place] [address] 43598 Eosinophils (Bld) [#/Vol] 0.1 10*3/uL Normal 0.0-0.4 [facility] Comment on above: Performed By: #### C BCA, 14338-5, PINR, 41569-2, BMP, 13007-8, 58456-5 #### [facility] ([id number]) [address] [place] [address] 66940 Eosinophils/100 WBC (Bld) 1.6 % Normal [facility] Comment on above: Performed By: #### C BCA, 30020-3, PINR, 95712-9, BMP, 27000-9, 89231-4 #### [facility] ([id number]) [address] [place] [address] 80159 Erythrocyte distribution width (RBC) [Ratio] 13.2 % Normal 11.5-15.0 [facility] Comment on above: Performed By: #### C BCA, 40889-5, PINR, 64300-7, BMP, 99683-4, 93308-1 #### [facility] ([id number]) [address] [place] [address] 34530 Hematocrit (Bld) [Volume fraction] 39.0 % Normal 35-47 [facility] Comment on above: Performed By: #### C BCA, 84087-8, PINR, 94195-3, BMP, 56260-5, 89010-9 #### [facility] ([id number]) [address] [place] [address] 61172 Hemoglobin (Bld) [Mass/Vol] 13.6 g/dL Normal 11.7-15.5 [facility] Comment on above: Performed By: #### C BCA, 69009-9, PINR, 54781-4, BMP, 06484-2, 73599-0 #### [facility] ([id number]) [address] [place] [address] 94019 Lymphocytes (Bld) [#/Vol] 0.7 10*3/uL Low 1.0-3.5 [facility] Comment on above: Performed By: #### C BCA, 47011-9, PINR, 71686-7, BMP, 12315-9, 66462-2 #### [facility] ([id number]) [address] [place] [address] 53144 Lymphocytes/100 WBC (Bld) 10.9 % Normal [facility] Comment on above: Performed By: #### C BCA, 85803-2, PINR, 68456-3, BMP, 11878-5, 00153-6 #### [facility] ([id number]) [address] [place] [address] 12871 MCH (RBC) [Entitic mass] 29.7 pg Normal 27-34 [facility] Comment on above: Performed By: #### C BCA, 98639-2, PINR, 63178-7, BMP, 93335-3, 03788-7 #### [facility] ([id number]) [address] [place] [address] 01455 MCHC (RBC) [Mass/Vol] 34.8 g/dL Normal 32-36 [facility] Comment on above: Performed By: #### C BCA, 97279-6, PINR, 03964-8, BMP, 80235-2, 64221-3 #### [facility] ([id number]) [address] [place] [address] 07810 MCV (RBC) [Entitic vol] 85 fL Normal 80-100 [facility] Comment on above: Performed By: #### C BCA, 79061-6, PINR, 90900-1, BMP, 77477-3, 57185-6 #### [facility] ([id number]) [address] [place] [address] 62953 Monocytes (Bld) [#/Vol] 0.5 10*3/uL Normal 0-0.9 [facility] Comment on above: Performed By: #### C BCA, 02065-9, PINR, 06556-1, BMP, 15764-0, 63330-0 #### [facility] ([id number]) [address] [place] [address] 17446 Monocytes/100 WBC (Bld) 7.5 % Normal [facility] Comment on above: Performed By: #### C BCA, 18145-1, PINR, 01654-2, BMP, 77023-6, 35234-8 #### [facility] ([id number]) [address] [place] [address] Neutrophils/100 WBC (Bld) 79.7 % Normal [facility] Comment on above: Performed By: #### C BCA, 23031-0, PINR, 28739-5, BMP, 16677-6, 58949-0 #### [facility] ([id number]) [address] [place] [address] 13768 Platelet mean volume (Bld) [Entitic vol] 8.2 fL Normal 7-12 [facility] Comment on above: Performed By: #### C BCA, 93308-1, PINR, 51733-7, BMP, 40962-4, 26579-6 #### [facility] ([id number]) [address] [place] [address] 76004 Platelets (Bld) [#/Vol] 158 10*3/uL Normal 150-450 [facility] Comment on above: Performed By: #### C BCA, 47777-8, PINR, 68269-9, BMP, 79395-2, 91710-3 #### [facility] ([id number]) [address] [place] [address] 30203 RBC COUNT 4.58 X10E12/L Normal 3.80-5.20 [facility] Comment on above: Performed By: #### C BCA, 24349-9, PINR, 60066-6, BMP, 12125-5, 81927-2 #### [facility] ([id number]) [address] [place] [address] 52283 WBC (Bld) [#/Vol] 6.4 10*3/uL Normal 4.0-11.0 [facility] Comment on above: Performed By: #### C BCA, 69643-6, PINR, 85140-4, BMP, 96487-1, 56186-0 #### [facility] ([id number]) [address] [place] [address] Fibrin D-dimer DDU (PPP) [Ma ss/Vol]on 10-06-2023 D DIMER 249 ng/mL DDU Normal <255 [facility] Comment on above: Result Comment: Results <255 ng/mL DDU: The presence of a VTE can safely be excluded with a negative D-Dimer result and Wells score. A negative result doesn't exclude the possibility of DIC. The test be repeated along with other diagnostic tests if the patient's symptoms persist or worsen. [email or web address] Performed By: #### C BCA, 59415-5, PINR, 27603-7, BMP, 15767-2, 62636-2 #### [facility] ([id number]) [address] [place] [address] 62769 MAGNESIUMon 10-06-2023 Magnesium [Mass/Vol] 2.0 mg/dL Normal 1.8-2.6 [facility] Comment on above: Performed By: #### C BCA, 02702-1, PINR, 32337-2, BMP, 57132-0, 89783-0 #### [facility] ([id number]) [address] [place] [address] 45318 PROTIME AND INRon 10-06-2023 INR Coag (PPP) [Relative time] 1.0 {INR} Normal 0.8-1.1 [facility] Comment on above: Performed By: #### C BCA, 70862-0, PINR, 76838-8, BMP, 89052-7, 80464-5 #### [facility] ([id number]) [address] [place] [address] 17291 PT Coag (PPP) [Time] 11.6 s Normal 9.8-13.2 [facility] Comment on above: Result Comment: NEW REFERENCE RANGE Performed By: #### C BCA, 63907-0, PINR, 97156-6, BMP, 76751-7, 94155-7 #### [facility] ([id number]) [address] [place] [address] 45513 TROPONIN Ion 10-06-2023 Troponin I.cardiac [Mass/Vol] ng/mL Normal 0.00-0.04 [facility] Comment on above: Performed By: #### C BCA, 91760-3, PINR, 29981-6, BMP, 89100-8, 64962-5 #### [facility] ([id number]) [address] [place] [address] 88852 aPTT Coag (PPP) [Time]on aPTT Coag (Bld) [Time] 32 s Normal 26-37 [facility] Comment on above: Result Comment: NEW REFERENCE RANGE Performed By: #### C BCA, 71627-1, PINR, 99826-8, BMP, 43065-8, 35283-2 #### [facility] ([id number]) [address] [place] [address] 97925 MR KNEE RT WO CONTon 024 MR KNEE RT WO CONT MR KNEE RT WO CONT History: Right knee pain for over a year. Osteoarthritis. No x-rays available for comparison currently Procedure multiplanar multisequence imaging performed through the knee Findings/Impression: * Complex tear posterior horn and mid zone of the medial meniscus with truncation and absence of large portions of the mid zone. Medial meniscus is subluxed medially due to joint space narrowing and advanced medial compartment arthritis. Lateral meniscus appropriate. * Cruciate and collateral ligaments appropriate * Multiple tiny loose bodies posterior to the medial meniscus at the posterior medial corner of the knee each measuring only a few millimeters in size coronal image 17 series 10. * Severe tricompartmental osteoarthritis predominately medial compartment with grade 3 hyaline cartilage loss and subchondral cysts and osteophytes, with similar findings of the patellofemoral compartment and more modest lateral compartment changes. Mild associated effusion. * No fracture or destructive bone lesion. Finalized by Shaun Warren MD on 08/24/2023 11:03 AM Normal [facility] FREE T3on 10-01-2022 FREE T3 2.12 pg/mlL Critically low 2.18-3.98 [facility] Comment on above: Performed By: #### T SH, FT3 ####[facility] [address] [id number]. Hubert Perera FREE T4on 10-01-2022 Free T4 [Mass/Vol] 1.47 ng/dL Critically high 0.76-1.46 [facility] Comment on above: Performed By: #### F T4 #### [facility] [address] [address] [address] Hubert Perera TSHon 10-01-2022 TSH 0.445 uIU/mL Normal 0.358-3.740 [facility] Comment on above: Performed By: #### T SH, FT3 ####[facility] [address] [id number] Perera XR DEXA BONE DENSITYon 10-01 XR DEXA BONE DENSITY EXAMINATION: XR DEXA BONE DENSITY, 10/01/2022 11:18 AM EST HISTORY: Bone density finding COMPARISON: DEXA bone densitometry 08/01/2017 TECHNIQUE: Dual-energy X-ray absorptiometry (DEXA) bone density study performed for the axial skeleton. FINDINGS: SPINE ANALYSIS: Average bone mineral density is 1.118 g/cm2. T-score (standard deviation relative to young adult mean): -0.5 . +2.5% change since prior study. HIP ANALYSIS: Lowest bone mineral density is within the left femoral neck, 0.73 g/cm2. T-score (standard deviation relative to young adult mean): -1.8 . +1.0% change since prior study. IMPRESSION: [employer] Classification: Osteopenia - Moderate Fracture Risk Electronically authenticated by: SAMMI STERLING Date: 2022-10-01 11:51 Normal [facility] CBC AUTO DIFFon 03-24-2022 BASO # 0.0 103/ul Normal 0.0-0.1 [facility] Comment on above: Performed By: #### C BC #### [facility] [address] [address] [address] Hubert Perera Basophils/100 WBC (Bld) 0.4 % Normal 0.2-2.0 [facility] Comment on above: Performed By: #### C BC #### [facility] [address] [place] [address] Dr. Hubert Perera EO # 0.2 103/ul Normal 0.0-0.7 [facility] Comment on above: Performed By: #### C BC #### [facility] [address] [place] [address] Dr. Hubert Perera Eosinophils/100 WBC (Bld) 2.2 % Normal 0.9-7.0 [facility] Comment on above: Performed By: #### C BC #### [facility] [address] [place] [address] Dr. Hubert Perera Erythrocyte distribution width (RBC) [Ratio] 12.6 % Normal 11.0-15.0 [facility] Comment on above: Performed By: #### C BC #### [facility] [address] [place] [address] Dr. Hubert Perera Hematocrit (Bld) [Volume fraction] 42.7 % Normal 36.0-48.0 [facility] Comment on above: Performed By: #### C BC #### [facility] [address] [place] [address] Dr. Hubert Perera Hemoglobin (Bld) [Mass/Vol] 14.2 g/dL Normal 12.0-16.0 [facility] Comment on above: Performed By: #### C BC #### [facility] [address] [place] [address] Dr. Hubert Perera IG # 0.01 10e3/ul Normal 0.00-0.03 [facility] Comment on above: Performed By: #### C BC #### [facility] [address] [place] [address] Dr. Hubert Perera IG % 0.1 % Normal 0.0-0.5 [facility] Comment on above: Performed By: #### C BC #### [facility] [address] [place] [address] Dr. Hubert Perera LYMPH # 3.0 103/ul Normal 1.2-3.8 [facility] Comment on above: Performed By: #### C BC #### [facility] [address] [place] [address] Dr. Hubert Perera Lymphocytes/100 WBC (Bld) 41.3 % Normal 20.5-60.0 [facility] Comment on above: Performed By: #### C BC #### [facility] [address] [place] [address] Dr. Hubert Perera MANUAL DIFF REQ NO Normal [facility] Comment on above: Performed By: #### C BC #### [facility] [address] [place] [address] Dr. Hubert Perera MCH (RBC) [Entitic mass] 29.2 pg Normal 26.7-34.0 [facility] Comment on above: Performed By: #### C BC #### [facility] [address] [place] [address] Dr. Hubert Perera MCHC (RBC) [Mass/Vol] 33.3 g/dL Normal 29.9-35.2 [facility] Comment on above: Performed By: #### C BC #### [facility] [address] [place] [address] Dr. Hubert Perera MCV (RBC) [Entitic vol] 87.7 fL Normal 81.0-99.0 [facility] Comment on above: Performed By: #### C BC #### [facility] [address] [place] [address] Dr. Hubert Perera MONO # 0.4 103/ul Normal 0.3-0.8 [facility] Comment on above: Performed By: #### C BC #### [facility] [address] [place] [address] Dr. Hubert Perera Monocytes/100 WBC (Bld) 5.9 % Normal 1.7-12.0 [facility] Comment on above: Performed By: #### C BC #### [facility] [address] [place] [address] Dr. Hubert Perera NEUT # 3.6 103/ul Normal 1.4-6.5 [facility] Comment on above: Performed By: #### C BC #### [facility] [address] [address] [address] Hubert Perera Neutrophils/100 WBC (Bld) 50.1 % Normal 43.0-75.0 [facility] Comment on above: Performed By: #### C BC #### [facility] [address] [address] [address] Hubert Perera Platelet mean volume (Bld) [Entitic vol] 11.7 fL Normal 9.5-13.5 [facility] Comment on above: Performed By: #### C BC #### [facility] [address] [address] [address] Hubert Perera PLT 206 103/ul Normal 150-450 [facility] Comment on above: Performed By: #### C BC #### [facility] [address] [address] [address] Hubert Perera RBC 4.87 106/ul Normal 4.20-5.40 [facility] Comment on above: Performed By: #### C BC #### [facility] [address] [address] [address] Hubert Perera WBC 7.2 103/ul Normal 4.0-11.0 [facility] Comment on above: Performed By: #### C BC #### [facility] [address] [address] [address] Hubert Perera FREE T3on 03-24-2022 FREE T3 2.63 pg/mlL Normal 2.18-3.98 [facility] Comment on above: Performed By: #### F T3, LIPID, TSH, BMP, ALT, AST #### [facility] [address] [address] [address] Hubert Perera FREE T4on 03-24-2022 Free T4 [Mass/Vol] 1.99 ng/dL Critically high 0.76-1.46 [facility] Comment on above: Performed By: #### F T4 ####[facility] [address] [address]Dr. Hubert Perera LIPID PROFILEon 03-24-2022 CHOL-HDL RATIO NORM SEE BELOW Normal [facility] Comment on above: Result Comment: 3.3 - 4.4 LOW RISK 4.4 - 7.1 AVERAGE RISK 7.1 - 11.0 MODERATE RISK >11.0 HIGH RISK Performed By: #### F T3, LIPID, TSH, BMP, ALT, AST #### [facility] [facility] [address] [place] [address] Dr. Hubert Perera Cholesterol [Mass/Vol] 173 mg/dL Normal <=200 [facility] Comment on above: Performed By: #### F T3, LIPID, TSH, BMP, ALT, AST #### [facility] [address] [address] [address] Hubert Perera Cholesterol in HDL [Mass/Vol] 50 mg/dL Normal 40-60 [facility] Comment on above: Performed By: #### F T3, LIPID, TSH, BMP, ALT, AST #### [facility] [address] [place] [address] Dr. Hubert Perera Cholesterol in LDL [Mass/Vol] 91.2 mg/dL Normal [facility] Comment on above: Performed By: #### F T3, LIPID, TSH, BMP, ALT, AST #### [facility] [address] [place] [address] Dr. Hubert Perera Cholesterol.total/ Cholesterol in HDL [Mass ratio] 3.5 {ratio} Normal [facility] Comment on above: Performed By: #### F T3, LIPID, TSH, BMP, ALT, AST #### [facility] [address] [place] [address] Dr. Hubret Perera HDL NORMAL > or = 60 mg/dl - LO W CARDIOVASCULAR RISK <40 mg/dl - HIGH CARDIOVASCULAR RISK Normal [facility] Comment on above: Performed By: #### F T3, LIPID, TSH, BMP, ALT, AST #### [facility] [address] [place] [address] Dr. Hubert Perera LDL CALC NORMAL SEE BELOW Normal [facility] Comment on above: Result Comment: <100 mg/dl OPTIMAL 100 - 129 mg/dl NEAR OR ABOVE OPTIMAL 130 - 159 mg/dl BORDERLINE HIGH 160 - 189 mg/dl HIGH >190 mg/dl VERY HIGH Performed By: #### F T3, LIPID, TSH, BMP, ALT, AST #### [facility] [address] [address] [address] Hubert Perera Triglyceride [Mass/Vol] 159 mg/dL Critically high <=150 [facility] Comment on above: Performed By: #### F T3, LIPID, TSH, BMP, ALT, AST #### [facility] [address] [place] [address] Dr. Hubert Perera VLDL CALC 31.8 mg/dL Normal [facility] Comment on above: Performed By: #### F T3, LIPID, TSH, BMP, ALT, AST #### [facility] [address] [place] [address] Dr. Hubert Perera PROF CHEM 8 (BAS METB)on Anion gap [Moles/Vol] 12.0 mmol/L Normal [facility] Comment on above: Performed By: #### F T3, LIPID, TSH, BMP, ALT, AST #### [facility] [address] [place] [address] Dr. Hubert Perera Calcium [Mass/Vol] 10.2 mg/dL Critically high 8.5-10.1 T [facility] Comment on above: Performed By: #### F T3, LIPID, TSH, BMP, ALT, AST #### [facility] [address] [place] [address] Dr. Hubert Perera Chloride [Moles/Vol] 105 mmol/L Normal 98-107 [facility] Comment on above: Performed By: #### F T3, LIPID, TSH, BMP, ALT, AST #### [facility] [address] [place] [address] Dr. Hubert Perera CO2 [Moles/Vol] 30.7 mmol/L Normal 21.0-32.0 [facility] Comment on above: Performed By: #### F T3, LIPID, TSH, BMP, ALT, AST #### [facility] [address] [place] [address] Dr. Hubert Perera Creatinine [Mass/Vol] 1.07 mg/dL Critically high 0.55-1.02 [facility] Comment on above: Performed By: #### F T3, LIPID, TSH, BMP, ALT, AST #### [facility] [address] [address] [address] Hubert Perera EGFR-AF CAMBODIAN >60 Normal >=60 [facility] Comment on above: Performed By: #### F T3, LIPID, TSH, BMP, ALT, AST #### [facility] [address] [address] [address] Hubert Perera EGFR-NON AF CAMBODIAN 51 mL/min/1.73m2 Critically low >=60 [facility] Comment on above: Performed By: #### F T3, LIPID, TSH, BMP, ALT, AST #### [facility] [address] [address] [address] Hubert Perera Glucose [Mass/Vol] 89 mg/dL Normal 74-106 [facility] Comment on above: Performed By: #### F T3, LIPID, TSH, BMP, ALT, AST #### [facility] [address] [place] [address] Dr. Hubert Perera Potassium [Moles/Vol] 4.7 mmol/L Normal 3.5-5.1 [facility] Comment on above: Performed By: #### F T3, LIPID, TSH, BMP, ALT, AST #### [facility] [address] [address] [address] Hubert Perera Sodium [Moles/Vol] 143 mmol/L Normal 136-145 [facility] Comment on above: Performed By: #### F T3, LIPID, TSH, BMP, ALT, AST #### [facility] [address] [address] [address] Hubert Perera Urea nitrogen [Mass/Vol] 14.0 mg/dL Normal 7.0-18.0 [facility] Comment on above: Performed By: #### F T3, LIPID, TSH, BMP, ALT, AST #### [facility] [address] [place] [address] Dr. Hubert Perera Urea nitrogen/Creatinin e [Mass ratio] 13.1 mg/mg Normal [facility] Comment on above: Performed By: #### F T3, LIPID, TSH, BMP, ALT, AST #### [facility] [address] [address] [address] Hubert Perera SGOTon 03-24-2022 AST [Catalytic activity/Vol] 30 U/L Normal 15-37 [facility] Comment on above: Performed By: #### F T3, LIPID, TSH, BMP, ALT, AST #### [facility] [id number] Hubert Perera SGPTon 03-24-2022 ALT [Catalytic activity/Vol] 52 U/L Normal 14-59 [facility] Comment on above: Performed By: #### F T3, LIPID, TSH, BMP, ALT, AST #### [facility] [address] [address] [address] Hubert Perera TSHon 03-24-2022 TSH 0.014 uIU/mL Critically low 0.358-3.740 [facility] Comment on above: Performed By: #### F T3, LIPID, TSH, BMP, ALT, AST #### [facility] [address] [address] [address] Hubert Perera XR ABD FLAT_UPon 12-03-2021 XR ABD FLAT_UP EXAMINATION: XR ABD FLAT_UP HISTORY: Left lower quadrant pain COMPARISON: No relevant comparison available. FINDINGS: BOWEL GAS PATTERN: Non-obstructed. Small amount of stool throughout the colon. No abnormal dilation or suspicious fluid levels. FREE AIR: None. CALCIFICATIONS: Bilateral small kidney stones versus artifact from overlying bowel content. BONES: No fracture or visible bone lesion. OTHER: Separate, corticated ossification inferior to the left hip joint, likely representing intramuscular heterotopic bone formation from remote injury. IMPRESSION: 1. No bowel obstruction or acute abdominal findings to account for patient's symptoms. 2. Suspect bilateral nephrolithiasis. Electronically authenticated by: SAMMI STERLING Date: 2021-12-03 12:56 Normal [facility] COVID-19on 05-24-2020 SARS-CoV-2, Rapid Not Detected Not Detected [place], [place] Comment on above: Rapid NAAT: The specimen is NEGATIVE for SARS-CoV-2, the novel coronavirus associated with COVID-19. The ID NOW COVID-19 assay is designed to detect the virus that causes COVID-19 in patients with signs and symptoms of infection who are suspected of COVID-19. An individual without symptoms of COVID-19 and who is not shedding SARS-CoV-2 virus would expect to have a negative (not detected) result in this assay. Negative results should be treated as presumptive and, if inconsistent with clinical signs and symptoms or necessary for patient management, should be tested with an alternative molecular assay. Negative results do not preclude SARS-CoV-2 infection and should not be used as the sole basis for patient management decisions. Fact sheet for Healthcare Providers: https://www.fda.gov/media/163196/download Fact sheet for Patients: https://www.fda.gov/media/538036/download Methodology: Isothermal Nucleic Acid Amplification Source .NASOPHARYNGEAL SWAB [place], [place] OPERATIVE REPORTon 0 OPERATIVE REPORT [address] [id number] OPERATIVE REPORT PATIENT NAME: AMBREEN THACKER : 1955 MED REC NO: [id number] ROOM: ACCOUNT NO: [id number] ADMIT DATE: 05/24/2020 PROVIDER: Jose Pabon DATE OF PROCEDURE: 05/24/2020 PREOPERATIVE DIAGNOSES: 1. Vitreous hemorrhage, left eye. 2. Hyphema, left eye. 3. Choroidal hemorrhage, left eye. 4. Ghost cell glaucoma, left eye. POSTOPERATIVE DIAGNOSES: 1. Vitreous hemorrhage, left eye. 2. Hyphema, left eye. 3. Choroidal hemorrhage, left eye. 4. Ghost cell glaucoma, left eye. PROCEDURES: Pars plana vitrectomy with anterior chamber washout, left eye. SURGEON: Jose Pabon MD ANESTHESIA: Monitored. REASON FOR OPERATION: The patient is a 65-year-old woman who had an uncomplicated vitrectomy 8 days ago for macular pucker. Postoperatively, she developed a choroidal hemorrhage that was moderate in size. Over the next several days, she developed vitreous hemorrhage and hyphema and then increasing glaucoma. She is currently on maximum medical therapy and still has episodes of extreme pain and corneal edema with pressures at times at 60. She has elected to undergo surgery to remove as much blood as possible from her eye and hopefully control her intraocular pressure to prevent visual damage. She understands the risks include, but are not limited to, bleeding, infection, retinal detachment, and continued glaucoma. DESCRIPTION OF PROCEDURE: The patient was brought to the operating room in good condition. She was administered local anesthetic and prepped and draped in the usual fashion. 25-gauge vitrectomy trocars were placed through the pars plana in the usual quadrants. The infusion was attached to inferotemporal site. A 20-gauge MVR blade was used to make paracentesis at 10 o'clock and 2 o'clock. The anterior chamber was irrigated with 23-gauge butterfly hooked up to a syringe with balanced salt. A cyclodialysis spatula was used on the other site to help remove as much fluid as possible. I left the vitreous infusion on during this procedure. After several minutes of irrigation, the anterior chamber was mostly clear. There had been blood coming from the vitreous into the anterior chamber consistently. I then put the light pipe and ocutome into the vitreous cavity. There was a mild amount of inferotemporal vitreous that was removed with the ocutome. The view was very hazy. I took out the ocutome and put in silicone-tipped extrusion. We washed out the vitreous cavity for several minutes. The view became more clear and I removed as much blood as possible from the surface of the retina and the vitreous. There was some mild residual choroidal elevation temporally. There was some subretinal hemorrhage in the inferior and superotemporal periphery. I did not attempt to do anything about the subretinal hemorrhage. I washed out the anterior chamber very briefly to clear as much as possible. We removed the trocars which were self-sealing. A small amount of dark red blood presented when I removed the trocars but I tried opening them and could not get any egress of blood from the suprachoroidal space. 50 mg ceftazidime were injected sub-Tenon's in the inferotemporal quadrant. The eye had normal pressure tactilely. Eye was patched in the usual fashion. The patient was taken to the recovery room with instructions to keep her head above her heart. JOSE PABON [id number] Doc#: [id number] CC: Normal [facility] Otheron 05-24-2020 SARS-CoV-2 [facility], [place] [id number] 05-24-2020 SARS-CoV-2 Normal [facility] Comment on above: Performed By: #### C OVID #### [address] [id number] Supervisor Special Services: Garrett Luke MD SARS-CoV-2,Rapid Not Detected Normal NOTDET [facility] Comment on above: Result Comment: Rapid NAAT: The specimen is NEGATIVE for SARS-CoV-2, the novel coronavirus associated with COVID-19. The ID NOW COVID-19 assay is designed to detect the virus that causes COVID-19 in patients with signs and symptoms of infection who are suspected of COVID-19. An individual without symptoms of COVID-19 and who is not shedding SARS-CoV-2 virus would expect to have a negative (not detected) result in this assay. Negative results should be treated as presumptive and, if inconsistent with clinical signs and symptoms or necessary for patient management, should be tested with an alternative molecular assay. Negative results do not preclude SARS-CoV-2 infection and should not be used as the sole basis for patient management decisions. Fact sheet for Healthcare Providers: https://www.fda.gov/media/041635/download Fact sheet for Patients: https://www.fda.gov/media/170054/download Methodology: Isothermal Nucleic Acid Amplification Performed By: #### C OVID #### [address] [id number] Supervisor Special Services: Garrett Luke MD SARS-CoV-2 Source .NASOPHARYNGEAL SWAB Normal [facility] Comment on above: Performed By: #### C OVID #### [address] [id number] Supervisor Special Services: Garrett Luke MD [id number] 05-14-2020 SARS-CoV-2 Not Detected Normal Not Detected [facility] Comment on above: Result Comment: (NOT E) This nucleic acid amplification test was developed and its performance characteristics determined by [employer]. Nucleic acid amplification tests include PCR and TMA. This test has not been FDA cleared or approved. This test has been authorized by FDA under an Emergency Use Authorization (EUA). This test is only authorized for the duration of time the declaration that circumstances exist justifying the authorization of the emergency use of in vitro diagnostic tests for detection of SARS-CoV-2 virus and/or diagnosis of COVID-19 infection under section 564(b)(1) of the Act, 21 U.S.C. 360bbb-3(b) (1), unless the authorization is terminated or revoked sooner. When diagnostic testing is negative, the possibility of a false negative result should be considered in the context of a patient's recent exposures and the presence of clinical signs and symptoms consistent with COVID-19. An individual without symptoms of COVID- 19 and who is not shedding SARS-CoV-2 virus would expect to have a negative (not detected) result in this assay. Performed At: [employer] [facility] [address] [facility] [place] [id number] Roddy Oconnor MD Ph:[phone] Performed By: #### A COV #### [facility] [address] [place], [place] [id number] Supervisor Special Services: Greg Max MD Covid-19 [facility] 2019 SARS-CoV-2, ROWAN Not Detected Not Detected [place], [place] Comment on above: (NOTE) This nucleic acid amplification test was developed and its performance characteristics determined by [employer]. Nucleic acid amplification tests include PCR and TMA. This test has not been FDA cleared or approved. This test has been authorized by FDA under an Emergency Use Authorization (EUA). This test is only authorized for the duration of time the declaration that circumstances exist justifying the authorization of the emergency use of in vitro diagnostic tests for detection of SARS-CoV-2 virus and/or diagnosis of COVID-19 infection under section 564(b)(1) of the Act, 21 U.S.C. 360bbb-3(b) (1), unless the authorization is terminated or revoked sooner. When diagnostic testing is negative, the possibility of a false negative result should be considered in the context of a patient's recent exposures and the presence of clinical signs and symptoms consistent with COVID-19. An individual without symptoms of COVID- 19 and who is not shedding SARS-CoV-2 virus would expect to have a negative (not detected) result in this assay. Performed At: [facility] [address] [place] [id number] Roddy Oconnor MD Ph:[phone] OPERATIVE REPORTon 9 OPERATIVE REPORT [address] [address] OPERATIVE REPORT PATIENT NAME: AMBREEN THACKER : 1955 MED REC NO: [id number] ROOM: ACCOUNT NO: [id number] ADMIT DATE: 08/21/2019 PROVIDER: Jose Pabon DATE OF PROCEDURE: 08/21/2019 PREOPERATIVE DIAGNOSIS: Rhegmatogenous retinal detachment, left eye, with macula-off. POSTOPERATIVE DIAGNOSIS: Rhegmatogenous retinal detachment, left eye, with macula-off. PROCEDURES: Pars plana vitrectomy with gas-fluid exchange and endolaser, left eye. ANESTHESIA: Monitored. ESTIMATED BLOOD LOSS: Less than 1 mL. SURGEON: Jose Pabon MD REASON FOR OPERATION: The patient has a 3-day history of decreased vision in the left eye due to macula-off retinal detachment. She has a retinal tear at 12:30 and the detachment extends throughout the entire superotemporal quadrant. There is a moderate amount of blood underneath the retina at the inferior aspect of the detachment. This does not affect the macula. She has elected to undergo surgery in the hopes of recovering partial vision. She understands it will take 6 months to regain maximum visual acuity. She understands that she will not likely return to 20/20. She understands she will develop significant cataract within the next 6-24 months. She understands the risks include, but are not limited to, bleeding, infection, and recurrent retinal detachment. DESCRIPTION OF PROCEDURE: The patient was brought to the operating room in good condition. She was administered local anesthetic and prepped and draped in the usual fashion. 25-gauge vitrectomy trocars were placed through the pars plana in the usual quadrants. The infusion was attached to the inferotemporal site. Light pipe and ocutome were passed through the superior sites. Vitreous was removed from anterior to posterior and then trimmed out peripherally as far as could be seen. Scleral depression was used in the inferior 180 degrees to trim vitreous near the vitreous base. A retinotomy was made with intraocular diathermy just outside of the posterior pole at 01:30. An air-fluid exchange was then done which reattached the retina nicely. I did not attempt to remove the subretinal blood since it was relatively a small amount and located at the edge of the detachment. At no time did the blood ever pass under the macula. Endolaser was then placed around the retinal tear and retinotomy. Endolaser was placed in the equator to the ora 360 degrees, except for 3 o'clock and 9 o'clock. Residual fluid was aspirated from over the optic nerve head. Trocars were removed, and the sites were closed with interrupted 6-0 gut suture. The eye was patched in the usual fashion after injecting 50 mg ceftazidime sub-Tenon's in the inferotemporal quadrant. The patient was taken to the recovery room in good condition. JOSE PABON [id number] Doc#: [id number] CC: Normal [facility] Vital Signs Date Time Vital Sign Value Performing Clinician Facility 04-29-2025 14:22040 Body height 154.94 cm Carroll Avitia MD Work Phone: [facility] 04-29-2025 14:22040 Body mass index (BMI) [Ratio] 29.2 kg/m2 Carroll Avitia MD Work Phone: [facility] 04-29-2025 14:22040 Body weight 70.3 kg Carroll Avitia MD Work Phone: [facility] 04-29-2025 14:22040 Diastolic blood pressure 78 mm[Hg] Carroll Avitia MD Work Phone: [facility] 04-29-2025 14:22-040 Heart rate 102 /min Carroll Avitia MD Work Phone: [facility] 04-29-2025 14:22-0400 Respiratory rate 20 /min Carroll Avitia MD Work Phone: [facility] 04-29-2025 14:22-0400 SaO2% (BldA) [Mass fraction] 97 % Carroll Avitia MD Work Phone: [facility] 04-29-2025 14:22-0400 Systolic blood pressure 126 mm[Hg] Carroll Avitia MD Work Phone: [facility] 02-19-2025 10:15-0400 Body height 154.9 cm Genevieve Benjamin MD Work Phone: [facility] 02-19-2025 10:15-0400 Body mass index (BMI) [Ratio] 29.02 kg/m2 Genevieve Benjamin MD Work Phone: [facility] 02-19-2025 10:15-0400 Body weight 69.67 kg Genevieve Benjamin MD Work Phone: [facility] 02-19-2025 10:15-0400 Diastolic blood pressure 80 mm[Hg] Genevieve Benjamin MD Work Phone: [facility] 02-19-2025 10:15-0400 Systolic blood pressure 152 mm[Hg] Genevieve Benjamin MD Work Phone: [facility] 11-05-2024 13:24-0400 Body height 154.9 cm Genevieve Benjamin MD Work Phone: [facility] 11-05-2024 13:24-0400 Body mass index (BMI) [Ratio] 30.04 kg/m2 Genevieve Benjamin MD Work Phone: [facility] 11-05-2024 13:24-0400 Body weight 72.12 kg Genevieve Benjamin MD Work Phone: [facility] 11-05-2024 13:24-0400 Diastolic blood pressure 76 mm[Hg] Genevieve Benjamin MD Work Phone: [facility] 11-05-2024 13:24-0400 Systolic blood pressure 128 mm[Hg] Genevieve Benjamin MD Work Phone: [facility] 10-17-2024 13:19-0500 Body height 154.9 cm Carroll Avitia MD Work Phone: [facility] 10-17-2024 13:19-0500 Body mass index (BMI) [Ratio] 29.48 kg/m2 Carroll Avitia MD Work Phone: [facility] 10-17-2024 13:19-0500 Body temperature 97.81 [degF] Carroll Avitia MD Work Phone: [facility] 10-17-2024 13:19-0500 Body weight 70.76 kg Carroll Avitia MD Work Phone: [facility] 10-17-2024 13:19-0500 Diastolic blood pressure 66 mm[Hg] Carroll Avitia MD Work Phone: [facility] 10-17-2024 13:19-0500 Heart rate 82 /min Carroll Avitia MD Work Phone: [facility] 10-17-2024 13:19-0500 Respiratory rate 22 /min Carroll Avitia MD Work Phone: [facility] 10-17-2024 13:19-0500 SaO2% (BldA) [Mass fraction] 96 % Carroll Avitia MD Work Phone: [facility] 10-17-2024 13:19-0500 Systolic blood pressure 140 mm[Hg] Carroll Avitia MD Work Phone: [facility] 07-30-2024 10:34-0500 Body height 154.9 cm Genevieve Benjamin MD Work Phone: [facility] 07-30-2024 10:34-0500 Body mass index (BMI) [Ratio] 29.82 kg/m2 Genevieve Benjamin MD Work Phone: [facility] 07-30-2024 10:34-0500 Body weight 71.58 kg Genevieve Benjamin MD Work Phone: [facility] 07-30-2024 10:34-0500 Diastolic blood pressure 72 mm[Hg] Genevieve Benjamin MD Work Phone: [facility] 07-30-2024 10:34-0500 Systolic blood pressure 142 mm[Hg] Genevieve Benjamin MD Work Phone: [facility] 07-12-2024 10:25-0500 Body height 154.9 cm [facility] 07-12-2024 10:25-0500 Body mass index (BMI) [Ratio] 29.63 kg/m2 [facility] 07-12-2024 10:25-0500 Body weight 71.12 kg [facility] 07-12-2024 10:25-0500 Diastolic blood pressure 54 mm[Hg] [facility] 07-12-2024 10:25-0500 Systolic blood pressure 132 mm[Hg] [facility] 05-03-2024 09:50-0400 Body height 154.9 cm Ariana Schumacher MD Work Phone: [facility] 05-03-2024 09:50-0400 Body mass index (BMI) [Ratio] 29.91 kg/m2 Ariana Schumacher MD Work Phone: [facility] 05-03-2024 09:50-0400 Body weight 71.76 kg Ariana Schumacher MD Work Phone: [facility] 05-03-2024 09:50-0400 Diastolic blood pressure 78 mm[Hg] Ariana Schumacher MD Work Phone: [facility] 05-03-2024 09:50-0400 Heart rate 80 /min Ariana Schumacher MD Work Phone: [facility] 05-03-2024 09:50-0400 SaO2% (BldA) [Mass fraction] 98 % Ariana Schumacher MD Work Phone: [facility] 05-03-2024 09:50-0400 Systolic blood pressure 132 mm[Hg] Ariana Schumacher MD Work Phone: [facility] 04-12-2024 13:17-0400 Body height 154.9 cm Carroll Avitia MD Work Phone: [facility] 04-12-2024 13:17-0400 Body mass index (BMI) [Ratio] 29.48 kg/m2 Carroll Avitia MD Work Phone: [facility] 04-12-2024 13:17-0400 Body temperature 97.81 [degF] Carroll Avitia MD Work Phone: [facility] 04-12-2024 13:17-0400 Body weight 70.76 kg Carroll Avitia MD Work Phone: [facility] 04-12-2024 13:17-0400 Diastolic blood pressure 70 mm[Hg] Carroll Avitia MD Work Phone: [facility] 04-12-2024 13:17-0400 Heart rate 73 /min Carroll Avitia MD Work Phone: [facility] 04-12-2024 13:17-0400 Respiratory rate 22 /min Carroll Avitia MD Work Phone: [facility] 04-12-2024 13:17-0400 SaO2% (BldA) [Mass fraction] 97 % Carroll Avitia MD Work Phone: [facility] 04-12-2024 13:17-0400 Systolic blood pressure 120 mm[Hg] Carroll Avitia MD Work Phone: [facility] 11-08-2023 12:51-0400 Body height 154.9 cm Hal Lobo MD Work Phone: [facility] 11-08-2023 12:51-0400 Body mass index (BMI) [Ratio] 30.04 kg/m2 Hal Lobo MD Work Phone: [facility] [employer] [facility] 11-08-2023 12:51-0400 Body weight 72.12 kg Hal Lobo MD Work Phone: [facility] [employer] [facility] 11-08-2023 12:51-0400 Diastolic blood pressure 80 mm[Hg] Hal Lobo MD Work Phone: [facility] [employer] [facility] 11-08-2023 12:51-0400 Heart rate 102 /min Hal Lobo MD Work Phone: [facility] [employer] [facility] 11-08-2023 12:51-0400 SaO2% (BldA) [Mass fraction] 95 % Hal Lobo MD Work Phone: [facility] [employer] [facility] 11-08-2023 12:51-0400 Systolic blood pressure 110 mm[Hg] Hal Lobo MD Work Phone: [facility] 05-24-2020 11:58-0400 BP Diastolic 54 mm[Hg] [facility] , [place] 05-24-2020 11:58-0400 BP Systolic 109 mm[Hg] [facility] , [place] 05-24-2020 11:58-0400 Pulse (Heart Rate) 82 /min [facility], [place] 05-24-2020 11:58-0400 Pulse Oximetry 100 % [facility] , [place] 05-24-2020 11:58-0400 Respiratory Rate 20 /min [facility], [place] 05-24-2020 11:32-0400 Body Temperature 97.3 [degF] [facility], [place] 05-24-2020 08:46-0400 BMI (Body Mass Index) 29.08 kg/m2 [facility] 05-24-2020 08:46-0400 Body weight 72.12 kg [facility] , [place] 05-24-2020 08:46-0400 Height 157.5 cm [facility] [place] 05-15-2020 13:00-0400 Body Temperature 97.3 [degF] [facility] [place] 05-15-2020 13:00-0400 BP Diastolic 65 mm[Hg] Jose [facility] , [place] 05-15-2020 13:00-0400 BP Systolic 131 mm[Hg] [facility] , [place] 05-15-2020 13:00-0400 Pulse (Heart Rate) 79 /min Jose [facility], [place] 05-15-2020 13:00-0400 Pulse Oximetry 99 % Jose [facility] , [place] 05-15-2020 13:00-0400 Respiratory Rate 19 /min Jose [facility] 05-15-2020 09:22-0400 BMI (Body Mass Index) 29.63 kg/m2 Jose [facility], [place] 05-15-2020 09:22-0400 Body weight 73.48 kg Jose [facility] , [place] 05-15-2020 09:22-0400 Height 157.5 cm Jose [facility] , [place] 08-21-2019 09:45-0500 Body temperature 96.8 [degF] Jose Pabon MD Work Phone: [employer] Work Phone: 08-21-2019 09:45-0500 Diastolic blood pressure 55 mm[Hg] Jose Pabon MD Work Phone: [employer] Work Phone: 08-21-2019 09:45-0500 Heart rate 76 /min Jose Pabon MD Work Phone: [employer] Work Phone: 08-21-2019 09:45-0500 Respiratory rate 18 /min Jose Pabon MD Work Phone: [employer] Work Phone: 08-21-2019 09:45-0500 SaO2% (BldA) [Mass fraction] 99 % Jose Pabon MD Work Phone: [employer] Work Phone: 08-21-2019 09:45-0500 Systolic blood pressure 137 mm[Hg] Jose Pabon MD Work Phone: [employer] Work Phone: 08-21-2019 07:21-0500 Body height 154.9 cm Jose Pabon MD Work Phone: [employer] Work Phone: 08-21-2019 07:21-0500 Body mass index (BMI) [Ratio] 29.1 kg/m2 Jose Pabon MD Work Phone: [employer] Work Phone: 08-21-2019 07:21-0500 Body weight 69.85 kg Jose Pabon MD Work Phone: [employer] Work Phone: Encounters Encounter Date Encounter Type Care Provider Facility Start: 04-29-2025 End: 04-29-2025 ambulatory Carroll Avitia MD Work Phone: [facility] Work Phone: Start: 04-29-2025 End: 04-29-2025 Patient encounter procedure Carroll Avitia MD -[facility] Work Phone: Start: 02-19-2025 End: 02-19-2025 Office outpatient visit 15 minutes [facility]evieve Benjamin MD [facility] Comment on above: Vaginal irritation ( Primary Dx); Acute vaginitis Start: 02-19-2025 End: 02-19-2025 ambulatory GENEVIEVE BENJAMIN [facility] Start: 01-24-2025 End: 01-24-2025 Refill Carroll Avitia MD Work Phone: [facility] Comment on above: Generalized anxiety disorder (CMS/HCC); Dyslipidemia (CMS/HCC) Start: 11-27-2024 End: 11-27-2024 Telephone encounter Marisabel Velasquez EVALUATION SPECIALIST [facility] Start: 11-05-2024 End: 11-05-2024 Office outpatient visit 15 minutes Genevieve Benjamin MD Work Phone: [facility] Comment on above: Vaginal irritation; Vulvar itching Start: 11-05-2024 End: 11-05-2024 ambulatory GENEVIEVE BENJAMIN [facility] Start: 10-18-2024 End: 10-18-2024 Refill Carroll Avitia MD Work Phone: [facility] Comment on above: Generalized anxiety disorder (CMS/HCC) Start: 10-17-2024 End: 10-17-2024 Bamboo flowsheet Carroll Avitia MD Work Phone: [facility] Start: 10-17-2024 End: 10-17-2024 Bamboo flowsheet Carroll Avitia MD Work Phone: [facility] Start: 10-17-2024 End: 10-17-2024 Office outpatient visit 25 minutes Carroll Avitia MD Work Phone: [facility] Comment on above: Major depressive dis order, recurrent episode, mild (HCC) (CMS/HCC) (Primary Dx); Generalized anxiety disorder (CMS/HCC); Generalized osteoarthritis of multiple sites; Gastroesophageal reflux disease without esophagitis; Adult hypothyroidism (CMS/HCC); CKD stage 3a, GFR 45-59 ml/min (CMS/HCC); Prediabetes; Encounter for long-term current use of medication; Dyslipidemia (CMS/HCC); CKD stage 3b, GFR 30-44 ml/min (CMS/HCC) Start: 10-17-2024 End: 10-17-2024 ambulatory CARROLL AVITIA Not Available Start: 08-20-2024 End: 08-20-2024 Office outpatient visit 15 minutes Genevieve Benjamin MD Work Phone: [facility] Comment on above: Vaginal irritation ( Primary Dx) Start: 08-20-2024 End: 08-20-2024 ambulatory [facility] Start: 08-07-2024 ambulatory [facility] Start: 07-30-2024 End: 07-30-2024 ambulatory [facility] Start: 07-30-2024 End: 07-30-2024 Patient encounter procedure Genevieve Benjamin MD Work Phone: [facility] Comment on above: Vaginal irritation ( Primary Dx) Start: 07-30-2024 End: 07-30-2024 ambulatory [facility] Start: 07-13-2024 End: 07-13-2024 Telephone encounter Oralia George Sen TOOL MAKER BENCH-ALUMINIZER Work Phone: [facility] Comment on above: Vulvar itching (Prim amber Dx) Start: 07-12-2024 End: 07-12-2024 ambulatory [facility] Start: 07-12-2024 End: 07-12-2024 Office outpatient visit 15 minutes [facility] Comment on above: Vaginal itching (Lucrecia timur Dx); Vaginal irritation; Acute vaginitis; Itching of vulva Start: 07-12-2024 End: 07-12-2024 [facility] Start: 07-02-2024 End: 07-02-2024 Refill Carroll Avitia MD Work Phone: [facility] Comment on above: Irritable bowel synd stef with both constipation and diarrhea (Primary Dx); Generalized anxiety disorder (CMS/HCC); Irritable bowel syndrome with diarrhea Start: 05-03-2024 End: 05-03-2024 Office outpatient visit 25 minutes Ariana Schumacher MD Work Phone: [facility] Comment on above: Chest pain, unspecif ied type (Primary Dx); Nonrheumatic mitral valve regurgitation; Nonrheumatic aortic valve insufficiency; Mixed hyperlipidemia Start: 05-03-2024 End: 05-03-2024 ambulatory ARIANA SCHUMACHER [facility] Start: 05-02-2024 End: 05-02-2024 Telephone encounter Caitlin Starr CMA [facility] Start: 04-12-2024 End: 04-12-2024 Bamboo flowsheet Carroll Avitia MD Work Phone: [facility] Start: 04-12-2024 End: 04-12-2024 Bamboo flowsheet Carroll Avitia MD Work Phone: [facility] Start: 04-12-2024 End: 04-12-2024 Office outpatient visit 25 minutes Carroll Avitia MD Work Phone: [facility] Comment on above: Major depressive dis order, recurrent episode, mild (HCC) (CMS/HCC) (Primary Dx); Generalized anxiety disorder (CMS/HCC); Generalized osteoarthritis of multiple sites; Gastroesophageal reflux disease without esophagitis; Adult hypothyroidism (CMS/HCC); CKD stage 3a, GFR 45-59 ml/min (CMS/HCC) Start: 04-12-2024 End: 04-12-2024 ambulatory CARROLL AVITIA Not Available Start: 01-26-2024 End: 01-26-2024 ambulatory [facility] Start: 01-02-2024 End: 01-21-2024 ambulatory [facility] Start: 11-28-2023 End: 12-21-2023 ambulatory [facility] Start: 11-08-2023 End: 11-08-2023 Office outpatient new 30 minutes Shakira Mejia DO Work Phone: [facility] Comment on above: Chest pain, unspecif ied type (Primary Dx); Mixed hyperlipidemia; Stage 1 chronic kidney disease Start: 11-08-2023 End: 11-08-2023 ambulatory [facility] Start: 11-07-2023 Telephone encounter [facility] Start: 11-03-2023 End: 11-21-2023 ambulatory [facility] Start: 10-28-2023 Chart abstracting Scanning Pro vider External [facility] Start: 10-25-2023 End: 10-25-2023 ambulatory CARROLL AVITIA Not Available Start: 10-07-2023 Telephone encounter Rufus peña MD Work Phone: [facility] Start: 10-06-2023 End: 10-08-2023 Emergency department patient visit MAIRA Jamie JAROD [facility] Start: 10-06-2023 End: 10-07-2023 ambulatory CARROLL AVITIA [facility] Start: 09-22-2023 End: 10-21-2023 ambulatory [facility] Start: 09-08-2023 End: 09-22-2023 ambulatory [facility] Start: 08-23-2023 End: 08-23-2023 ambulatory [facility] Start: 10-01-2022 End: 10-02-[address] CARROLL AVITIA Facility:[facility] Start: 03-24-2022 End: 03-25-[address] CARROLL AVITIA Facility:[facility] Start: 12-03-2021 End: 12-04-[address] CARROLL AVITIA Facility:[facility] Start: 05-24-2020 End: 05-24-2020 Patient encounter procedure JOSE PABON [facility] Start: 05-24-2020 End: 05-24-2020 Subsequent hospital visit by physician Jose Pabon Work Phone: [facility] Start: 05-15-2020 End: 05-15-2020 Patient encounter procedure JOSE PABON [facility] Start: 05-15-2020 End: 05-15-2020 Subsequent hospital visit by physician Jose Pabon Work Phone: [facility] Start: 05-11-2020 End: 05-16-2020 [facility] Start: 05-11-2020 End: 05-15-2020 Subsequent hospital visit by physician Abelardo JIN PRE-ADMIT TESTING Start: 08-21-2019 End: 08-21-2019 Patient encounter procedure JOSE PABON [facility] Start: 08-21-2019 End: 08-21-2019 Subsequent hospital visit by physician Jose Pabon MD Work Phone: [facility] Procedures Date Procedure Procedure Detail Performing Clinician Start: 11-05-2024 Follow-up visit Follow-up GENEVIEVE BENJAMIN Start: 05-03-2024 Follow-up visit Follow-up ARIANA SCHUMACHER Start: 02-22-2024 Mammography Carroll gomez MD Work Phone: Start: 05-24-2020 DISCHARGE PATIENT EVELIN PABON Start: 05-24-2020 Continuous pulse oximetry JOSE CM Start: 05-24-2020 BEDREST JOSE MARY SEN Start: 05-24-2020 ENCOURAGE DEEP BREAT ROHITH AND COUGHING JOSE CM Start: 05-24-2020 INITIATE OXYGEN THER APY PROTOCOL JOSE CM Start: 05-24-2020 NOTIFY PHYSICIAN (SPECIFY) JOSE PABON Start: 05-24-2020 NURSING COMMUNICATION P HILIP CM Start: 05-24-2020 VITAL SIGNS JOSE MARY SEN Start: 05-24-2020 COVID-19 JOSE MARY SEN Start: 05-24-2020 COVID-19 Jose andrade Work Phone: Start: 05-15-2020 Continuous pulse oximetry JOSE CM Start: 05-15-2020 ENCOURAGE DEEP BREAT ROHITH AND COUGHING JOSE CM Start: 05-15-2020 INITIATE OXYGEN THER APY PROTOCOL JOSE CM Start: 05-15-2020 BEDREST JOSE MARY SEN Start: 05-15-2020 NOTIFY PHYSICIAN (SPECIFY) JOSE CM Start: 05-15-2020 NURSING COMMUNICATION P HILIP CM Start: 05-15-2020 VITAL SIGNS JOSE MARY SEN Start: 05-15-2020 Ecg routine ecg w/le ast 12 lds w/i&r JOSE CM Start: 05-11-2020 COVID-19 AMBULATORY NIRANJAN S MENDEZ Start: 05-11-2020 COVID-19 AMBULATORY Niranjan s E Jose Work Phone: Start: 05-10-2020 COVID-19 CONNIESEBASTIAN KING Start: 08-21-2019 DISCHARGE PATIENT EVELIN PABON Start: 08-21-2019 INITIATE OXYGEN THER APY PROTOCOL JOSE PABON Start: 08-21-2019 BEDREST JOSE [place] SEN Start: 08-21-2019 Continuous pulse oximetry JOSE PABON Start: 08-21-2019 ENCOURAGE DEEP BREAT ROHITH AND COUGHING JOSE PABON Start: 08-21-2019 NURSING COMMUNICATION P ZAC PABON Start: 08-21-2019 INITIATE OXYGEN THER APY PROTOCOL JOSE PABON Start: 08-21-2019 NOTIFY PHYSICIAN (SPECIFY) JOSE PABON Start: 08-21-2019 PULSE OXIMETRY SPOT CHECK JOSE PABON Start: 08-21-2019 VITAL SIGNS JOSE [place] SEN Start: 02-07-2019 Colonoscopy Rufus mena MD Work Phone: H/O: section Hx of cesa rean section Carroll Avitia MD Work Phone: Plan of Treatment Date Care Activity Detail Author Start: 02-07-2029 Screening for malignant neoplasm of colon [facility] Start: 11-05-2025 Adult BMI Screening Adult BMI Screening [facility] Start: 11-05-2025 Tobacco Screening Tobacco Screening [facility] Start: 07-30-2025 Adult BMI Screening Adult BMI Screening [facility] Start: 07-12-2025 Adult BMI Screening Adult BMI Screening [facility] Start: 07-12-2025 Tobacco Screening Tobacco Screening [facility] Start: 05-03-2025 Adult BMI Screening Adult BMI Screening [facility] Start: 05-03-2025 Tobacco Screening Tobacco Screening [facility] Start: 04-22-2025 [facility] Start: 04-18-2025 End: 04-18-2025 Patient encounter procedure 04/18/2025 1:15 PM EDT Office Visit [facility] [address] [place] [address] Carroll Avitia MD [address] [place] [address] [facility] Start: 02-21-2025 Screening for malignant neoplasm of breast Mammogram [facility] Start: 11-07-2024 Adult BMI Screening Adult BMI Screening [facility] Start: 11-07-2024 Tobacco Screening Tobacco Screening [facility] Start: 11-05-2024 End: 11-05-2024 Patient encounter procedure 11/05/2024 1:15 PM EDT Office Visit [facility] [address] [place] [phone] Genevieve Benjamin MD [address] [place], [place] [id number] [facility] Start: 10-17-2024 End: 10-17-2025 Basic metabolic 1998 panel - Serum or Plasma Basic metabolic panel Lab Routine CKD stage 3a, GFR 45-59 ml/min ([facility]/HCC) Expected: 10/17/2024 (Approximate), Expires: 10/17/2025 [facility] Comment on above: Expected: 10/17/2024 (Approximate), Expi res: 10/17/2025 Start: 10-17-2024 End: 10-17-2025 CBC W Auto Differential panel - Blood CBC and differential Lab Routine Encounter for long-term current use of medication Expected: 10/17/2024 (Approximate), Expires: 10/17/2025 [facility] Comment on above: Expected: 10/17/2024 (Approximate), Expi res: 10/17/2025 Start: 10-17-2024 End: 10-17-2025 Hemoglobin A1c/Hemoglobin.total in Blood Hemoglobin A1c Lab Routine Prediabetes Expected: 10/17/2024 (Approximate), Expires: 10/17/2025 [facility] Work Phone: Comment on above: Expected: 10/17/2024 (Approximate), Expi res: 10/17/2025 Start: 10-17-2024 End: 10-17-2025 Hepatic function 2000 panel - Serum or Plasma Hepatic function panel Lab Routine Encounter for long-term current use of medication Expected: 10/17/2024 (Approximate), Expires: 10/17/2025 [facility] Comment on above: Expected: 10/17/2024 (Approximate), Expi res: 10/17/2025 Start: 10-17-2024 End: 10-17-2025 Lipid 1996 panel - Serum or Plasma Lipid panel Lab Routine Dyslipidemia (CMS/HCC) Expected: 10/17/2024 (Approximate), Expires: 10/17/2025 [facility] Comment on above: Expected: 10/17/2024 (Approximate), Expi res: 10/17/2025 Start: 10-17-2024 End: 10-17-2025 Thyrotropin [Units/volume] in Serum or Plasma TSH Lab Routine Adult hypothyroidism (CMS/HCC) Expected: 10/17/2024 (Approximate), Expires: 10/17/2025 [facility] Comment on above: Expected: 10/17/2024 (Approximate), Expi res: 10/17/2025 Start: 10-17-2024 End: 10-17-2025 Thyroxine (T4) free [Mass/volume] in Serum or Plasma T4, free Lab Routine Adult hypothyroidism (CMS/HCC) Expected: 10/17/2024 (Approximate), Expires: 10/17/2025 [facility] Comment on above: Expected: 10/17/2024 (Approximate), Expi res: 10/17/2025 Start: 10-17-2024 End: 10-17-2025 Triiodothyronine (T3) Free [Mass/volume] in Serum or Plasma T3, free Lab Routine Adult hypothyroidism (CMS/HCC) Expected: 10/17/2024 (Approximate), Expires: 10/17/2025 [facility] Comment on above: Expected: 10/17/2024 (Approximate), Expi res: 10/17/2025 Start: 10-17-2024 End: 10-17-2024 Patient encounter procedure [facility] Comment on above: Arrived Start: 10-06-2024 Adult BMI Screening Adult BMI Screening [facility] Start: 10-06-2024 Tobacco Screening Tobacco Screening [facility] Start: 08-07-2024 End: 08-07-2024 Patient encounter procedure 08/07/2024 11:00 AM EST Office Visit [facility] [address] [place] [phone] Genevieve Benjamin MD [address] [place] [address] [facility] Start: 07-30-2024 End: 07-30-2024 Patient encounter procedure 07/30/2024 10:30 AM EST Procedure visit [facility] [address] [place] [phone] Genevieve Benjamin MD [address] [place] [address] [facility] Start: 07-12-2024 End: 07-12-2025 Vaginitis Panel PCR [facility] Work Phone: Comment on above: Expected: 07/12/2024 (Approximate), Expi res: 07/12/2025 Start: 05-03-2024 End: 05-03-2024 Patient encounter procedure 05/03/2024 10:00 AM EDT Office Visit [facility] [address] [facility] [place] [phone] Ariana Schumacher MD [address] [place] [address] [facility] Start: 04-22-2024 COVID-19 Vaccine ( season) COVID-19 Vaccine ( season) [facility] Start: 04-22-2024 COVID-19 Vaccine ( season) COVID-19 Vaccine ( season) [facility] Start: 04-22-2024 Influenza vaccination [facility] Start: 04-12-2024 End: 04-12-2024 Patient encounter procedure 04/12/2024 1:15 PM EDT Office Visit [facility] [address] [place] [address] Carroll Avitia MD [address] [place] [place] [address] Arrived [facility] Comment on above: Arrived Start: 11-17-2023 End: 11-17-2023 Patient encounter procedure 11/17/2023 1:00 PM EDT Appointment [facility] [address] [place] [phone] Arrived [facility] Comment on above: Arrived Start: 11-08-2023 End: 11-07-2024 Echo complete W/O contrast Echo complete W/O contrast Echocardiography Routine Chest pain, unspecified type Stage 1 chronic kidney disease Expected: 11/08/2023, Expires: 11/07/2024 [facility] Work Phone: Comment on above: Expected: 11/08/2023, Expires: Start: 11-08-2023 End: 11-08-2023 Patient encounter procedure 11/08/2023 1:00 PM EDT Office Visit [facility] [address] [facility] [address] [place] [address] Shakira Mejia, [address] [place] [address] Hal Lobo MD [address] [place] [address] [facility] Start: 04-22-2023 COVID-19 Vaccine ( season) COVID-19 Vaccine ( season) [facility] Start: 04-22-2023 Influenza vaccination Influenza Vaccine [facility] Start: 04-22-2020 Influenza vaccination Flu vaccine (#1) [place] Start: 08-21-2019 Annual Wellness Visit (AWV) Annual Wellness Visit (AWV) [place] Start: 04-22-2019 Influenza vaccination [facility] (#[facility] Start: 2018 Fall Risk Screening Fall Risk Screening [facility] Start: 2018 Pneumococcal 65+ years Vaccine (1 of 1 - PPSV23) Pneumococcal 65+ years Vaccine (1 of 1 - PPSV23) [facility] [employer] Phone: Start: 2018 Pneumococcal Vaccine: 65+ Years (1 of 1 - PCV) Pneumococcal Vaccine: 65+ Years (1 of 1 - PCV) [facility] Start: 01-29-2008 Screening for osteoporosis DEXA (modify frequency per FRAX score) [place] Start: 2003 Administration of varicella zoster vaccine Zoster (Shingles) Vaccine (1 of 2) [facility] Start: 2003 Pneumococcal Vaccine: 65+ Years (1 of 1 - PCV) Pneumococcal Vaccine: 65+ Years (1 of 1 - PCV) [facility] Start: 2003 Screening for malignant neoplasm of breast Breast cancer screen [place], [place] Start: 2003 Screening for malignant neoplasm of colon Colon cancer screen colonoscopy [place], [place] Start: 2003 Shingles Vaccine (1 of 2) Shingles Vaccine (1 of 2) [place], [place] Start: 1993 Diabetes screen Diabetes screen [place], [place] Start: 1993 Lipid panel Lipid screen [place] Start: 01-29-1972 DTaP,Tdap and Td Vaccines (1 - Tdap) DTaP,Tdap and Td Vaccines (1 - Tdap) [facility] Start: 01-29-1972 DTaP/Tdap/Td vaccine (1 - Tdap) DTaP/Tdap/Td vaccine (1 - Tdap) [place] Start: 1971 Adult BMI Follow Up Plan Adult [facility] Start: 1965 [facility]ening [facility] Start: 1953 Creatinine measurement Creatinine monitoring [facility] Start: 1953 Hepatitis C screening Hepatitis C screen [facility] Start: 1953 Medicare Annual Wellness (AWV) Medicare Annual Wellness (AWV) [facility] Start: 1953 Medicare Annual Wellness Visit Medicare [facility] Start: 1955 Potassium monitoring Potassium monitoring [facility] ABIMAEL Start: 1955 Screening for malignant neoplasm of colon [facility] End: 05-11-2020 COVID-19 COVID-19 Lab Routine One Time for 1 Occurrences starting 05/11/2020 until 05/11/2020 [place], [place] Comment on above: One Time for 1 Occurrences starting 04/23 until 05/11/2020 EKG 12 Lead EKG 12 Lead ECG Routine 05/15/2020 9:30 AM EDT [place], [place] Initiate Oxygen Ther apy Protocol Initiate Oxygen Therapy Protocol Respiratory Care Routine Daily until discontinued starting 08/21/2019 [employer] Phone: Comment on above: Daily until discontinued starting 2018 Microscopic observat ion [Identifier] in Unspecified specimen by Gram stain Gram stain Microbiology Routine Acute vaginitis 02/19/2025 1:04 PM EDT [employer] Phone: Oxygen therapy [[facility]ini [facility] Data Set] [place], [place] Comment on above: Daily until discontinued starting 2019 Daily until disconti nued starting 05/24/2020 Phase I & II - meter ed glucose [employer] Phone: Comment on above: As Needed until discontinued starting As Needed until disc ontinued starting 05/24/2020 As Needed until disc ontinued starting 08/21/2019 End: 08-21-2019 Pulse Oximetry Spot Check Pulse Oximetry Spot Check Respiratory Care Routine One Time for 1 Occurrences starting 08/21/2019 until 08/21/2019 [employer] Phone: Comment on above: One Time for 1 Occurrences starting 07/24 until 08/21/2019 End: 07-30-2025 Surgical Pathology Surgical Pathology Pathology and Cytology Routine Vaginal irritation 1 Occurrences starting 07/30/2024 until 07/30/2025 [employer] Phone: Comment on above: 1 Occurrences starting 07/30/2024 until 07/30/2025 Yeast Culture Yeast Culture Microbiology Routine Acute vaginitis 02/19/2025 1:04 PM EDT [facility] [employer] [facility] Immunizations Immunization Date Immunization Notes Care Provider Fa cility 11-04-2020 COVID-19, mRNA, LNP- S, PF, 30mcg/0.3mL Dose Rufus Lovell MD Work Phone: [employer] 10-14-2020 COVID-19, mRNA, LNP- S, PF, 30mcg/0.3mL Dose Rufus Lovell MD Work Phone: [facility] [employer] Payers Date Payer Category Payer Medicaid [id number] 2018 Medicare [id number] 2014 Medicaid MEDICAID [facility] DEPT OF JOB xxxxxxxxxxxx 2014-Present [phone] [address] [place] [address] xxxxxxxxxxxx [id number] 2014 Medicare [id number] 2014 Medicare MEDICARE MEDICAR E PART A AND B xxxxxxxxxx 2014-Present [phone] [place] [address] xxxxxxxxxx [id number] 1959 Medicaid [id number] .[id number] 1959 Medicare [id number] [id number] .[id number] 1953 Unknown [id number] 2.16.840.1.796740.3.579.2.177 1953 Unknown [id number] 2.16.840.1.371410.3.579.2.175 1953 Unknown [id number] 2.16.840.1.261570.3.579.2.175 1953 Unknown [id number] 2.16.840.1.027086.3.579.2.175 1953 Unknown [id number] 2.16.840.1.524975.3.579.2.593 1953 Unknown [id number] 2.16.840.1.290814.3.579.2.593 1953 Unknown [id number] 2.16.840.1.622895.3.579.2.593 1953 Unknown [id number] 2.16.840.1.246459.3.579.2.128 6 1953 Unknown [id number] 2.16.840.1.931891.3.579.2.128 6 1953 Unknown [id number] 2.16.840.1.187549.3.579.2.128 6 1953 Unknown [id number] 2.16.840.1.876800.3.579.2.128 6 1953 Unknown [id number] 2.16.840.1.724407.3.579.2.128 6 1953 Unknown [id number] 2.16.840.1.878273.3.579.2.128 6 1953 Unknown [id number] 2.16.840.1.284235.3.579.2.128 1953 Unknown [id number] 2.16.840.1.789358.3.579.2.128 1953 Unknown [id number] 2.16.840.1.075857.3.579.2.128 1953 Unknown [id number] 2.16.840.1.795541.3.579.2.128 1953 Unknown [id number] 2.16.840.1.770688.3.579.2.128 1953 Unknown [id number] 2.16.840.1.883390.3.579.2.128 1953 Unknown [id number] 2.16.840.1.629578.3.579.2.128 1953 Unknown [id number] 2.16.840.1.439581.3.579.2.125 1953 Unknown [id number] 2.16.840.1.089455.3.579.2.125 1953 Unknown [id number] 2.16.840.1.050844.3.579.2.125 1953 Unknown [id number] 2.16.840.1.368576.3.579.2.128 1953 Unknown [id number] 2.16.840.1.223928.3.579.2.128 1953 Unknown [id number] 2.16.840.1.943998.3.579.2.128 1953 Unknown [id number] 2.16.840.1.301933.3.579.2.128 1953 Unknown [id number] 2.16.840.1.270731.3.579.2.128 1953 Unknown [id number] 2.16.840.1.803510.3.579.2.128 6 Social History Date Type Detail Facility Start: 05-15-2020 End: 04-29-2025 Tobacco smoking status NHIS Former smoker [employer] Phone: Start: 08-22-1968 End: 08-22-2001 History of tobacco use Current smoker [employer] Phone: Start: 08-22-1968 End: 08-22-2001 History of tobacco use Cigarette Smoker [employer] Phone: Start: 05-15-2020 End: 10-02-2020 Cigarettes smoked current (pack per day) - Reported [facility] Start: 05-15-2020 End: 07-30-2024 Tobacco use and exposure Never used [employer] [facility] Start: 08-21-2019 End: 05-15-2020 Alcohol intake Lifetime non-drinker (finding) [employer] Phone: Start: 08-20-2019 History SDOH Alcohol Frequency 1 [employer] Phone: Start: 1955 Sex Assigned At Not on file [employer] Phone: Exposure to SARS-CoV -2 (event) Not sure [facility] [place] [facility] Start: 04-12-2024 End: 02-19-2025 Alcoholic beverage intake Ex-drinker (finding) [facility] Start: 10-02-2020 End: 10-18-2023 Social connection and isolation panel [facility] Do you belong to any clubs or organizations such as adventism groups, unions, fraternal or athletic groups, or school groups? No [facility] Are you now , , , , never or living with a partner? [facility] How often to you hav e a drink containing alcohol? Never [facility] How many standard dr inks containing alcohol do you have on a typical day? Patient does not drink [facility] How hard is it for y ou to pay for the very basics like food, housing, medical care, and heating Not very hard [facility] Do you feel stress - tense, restless, nervous, or anxious, or unable to sleep at night because your mind is troubled all the time - these days [OSQ] Rather much [facility] (I/We) worried wheth er (my/our) food would run out before (I/we) got money to buy more. Never true [facility] Start: 03-27-2015 Sex Female (finding) [facility] Start: 11-14-2023 Gender identity Identifies as female gender (finding) [facility] Start: 1955 Sex Assigned At Female [facility] Medical Equipment Procedure Code Equipment Code Equipment Origin al Text Equipment Identifier Dates Lens Iol Ultrase rt 15.5d - [id number] - [id number] Start: 02-12-2020 Clinical Notes 10-07-2023 to 02-19-2025 Genevieve Benjamin MD - 02/19/2025 10:15 AM EDTAddendum Note - Yasmany Amaya, [facility] - 02/19/2025 10:15 AM EDTAddendum Note - Yasmany Amaya, [facility] - 02/19/2025 10:15 AM EDT Note Date & Type Note Facility 02-19-2025 History of Presen t illness Narrative Ambreen Thacker is a 70 y.o.female. No LMP recorded. Patient is postmenopausal.. She presents for flare up of Lichen Sclerosus. Pt reports over the last 7 days a lot of burning and itching. She states the inflammation and pain is increasing. Pt is currently using her Clobetasol and stopped using the Estrace cream when she started the Clobetasol. She reports intense burning when applying the Clobetasol. She reports burning when using epsom salt sits baths. No new sexual partners. Patient has an updated biopsy on file. OB History 2 Para 1 Term 1 AB 1 Living 1 SAB IAB 1 Ectopic Multiple Live Births 1 MEDICAL HX Past Medical History: Diagnosis Date Anxiety 1989 Arthritis 1994 Cataract Chronic kidney disease Depression 2019 GERD (gastroesophageal reflux disease) 1994 Glaucoma 2018 Hyperthyroidism 2000 Inflammatory bowel disease 2019 Shingles 2020 Ulcer (traumatic) of oral mucosa 1970 Varicella ? Visual impairment 1961 SURGICAL HX Past Surgical History: Procedure Laterality Date BREAST BIOPSY Right 1990 SECTION COLONOSCOPY EYE SURGERY 2019 Retinal detachment 2 virectomies 2019 [facility] I IMPLANT INTRAOCULAR LENS Left 02/12/2020 Performed by Hafsa Landeros MD at [facility] FAMILY HX Family History Problem Relation Age of Onset Alzheimer's disease Mother Arthritis Mother Hypertension Mother Ulcers Father COPD Sister MEDS Current Outpatient Medications Medication Sig Dispense Refill acidophilus-pectin, citrus 25 million cell -100 mg tablet Take 1 tablet by mouth daily with breakfast. ALPRAZolam (XANAX) 0.25 mg tablet Take 2 tablets (0.5 mg total) by mouth 3 (three) times a day as needed. atorvastatin (LIPITOR) 10 mg tablet Take 1 tablet (10 mg total) by mouth in the morning. B-complex with vitamin C tablet Take 1 tablet by mouth in the morning. calcium carbonate (OS-CARMEN) 600 mg (1,500 mg) tablet Take 1 tablet (600 mg total) by mouth in the morning. celecoxib (CeleBREX) 200 mg capsule Take 1 capsule (200 mg total) by mouth in the morning. cholecalciferol, vitamin D3, (VITAMIN D3) 1,000 units tablet Take 1 tablet (1,000 Units total) by mouth in the morning. clobetasoL (TEMOVATE) 0.05 % cream Apply 1 Application topically in the morning and 1 Application before bedtime. 30 g 0 dicyclomine (BENTYL) 20 mg tablet Take 1 tablet (20 mg total) by mouth Three times daily as needed. estradioL (ESTRACE) 0.01 % (0.1 mg/gram) vaginal cream Insert 1 g into the vagina in the morning. 42.5 g 1 latanoprost (XALATAN) 0.005 % ophthalmic solution Administer 1 drop to both eyes in the morning. levothyroxine (SYNTHROID, LEVOTHROID) 88 MCG tablet Take 1 tablet (88 mcg total) by mouth in the morning. meclizine (ANTIVERT) 25 mg tablet Chew 1 tablet (25 mg total) and swallow daily as needed for dizziness. omeprazole (PriLOSEC) 20 mg capsule Take 1 capsule (20 mg total) by mouth in the morning and 1 capsule (20 mg total) before bedtime. predniSONE (DELTASONE) 20 mg tablet Take 1 tablet (20 mg total) by mouth as needed. No current facility-administered medications for this visit. ALLERGIES No Known Allergies Review of Systems Review of Systems Objective BP 152/80 Ht 154.9 cm (5' 1 ) Wt 69.7 kg (153 lb 9.6 oz) BMI 29.02 kg/m Physical Exam Physical Exam GEN AAOX3, NAD HEENT UNREMARKABLE HEART RRR LUNGS CTAB ABD BENIGN, OBESE, NTND PELVIS: ATROPHIC WITH IRRITATION TO BILATERAL LABIA, OBLITERATED INTRALABIAL FOLDS WITH LICHENS CHANGES SUPERIMPOSED INFLAMMATORY CHANGE, AREA OF HYPEREMIA ON LEFT LABIA MINORA VERY TENDER REGION. SLIGHT FISSUE AT 6 O'CLOCK AREA OF ENTROTIS RECTAL DEFERRED EXTREM NO CCE, NO CALF TENDERNESS Assessment/Plan: Diagnoses and all orders for this visit: Vaginal irritation HO LICHEN SCLEROSIS Discussed the patients current symptoms and concerns. Discussed what the patient has been trying for relief. Recommended sits baths with epsom salts, dermaplast spray, and her Clobetasol cream. Cultures collected today. Will call patient with results in 47-72 hours. MD YASMANY ARGUELLO CMA Emma Leis 02/19/25 1031 documented in this encounter [facility] 02-19-2025 Miscellaneous Notes Addended by: YASMANY AMAYA on: 02/19/2025 01:04 PM Modules accepted: Orders documented in this encounter [facility] 02-19-2025 Note Addended by: YASMANY AMAYA on: 02/19/2025 01:04 PM Modules accepted: Orders [facility] 11-27-2024 Telephone encounter Note MEDICARE 20% CO PAY WITH UNLIMITED VISITS DEDUCTIBLE IS 257 AND 0 IS [place] MEDICAID INVALID Pt to callback to schedule . She is looking into her medicaid coverage. I did look on [employer]S , and it only showed her medicare coverage. [facility] 11-27-2024 Miscellaneous Notes MEDICARE 20% CO PAY WITH UNLIMITED VISITS DEDUCTIBLE IS 257 AND 0 IS [place] MEDICA[place] INVALID Pt to callback to schedule . She is looking into her medicaid coverage. I did look on MITS , and it only showed her medicare coverage. documented in this encounter [facility] 11-05-2024 History of Presen t illness Narrative Ambreen Thacker is a 69 y.o.female. No LMP recorded. Patient is postmenopausal.. She presents for follow up of Lichen Sclerosis. Pt reports slight itching and dryness but Improved since last visit with using the Clobetasol cream. She requests 90 day refill on the Clobetasol cream. OB History 2 Para 1 Term 1 AB 1 Living 1 SAB IAB 1 Ectopic Multiple Live Births 1 MEDICAL HX Past Medical History: Diagnosis Date Anxiety 1989 Arthritis 1994 Cataract Chronic kidney disease Depression 2019 GERD (gastroesophageal reflux disease) 1994 Glaucoma 2017 Hyperthyroidism 1999 Inflammatory bowel disease 2018 Shingles 2020 Ulcer (traumatic) of oral mucosa 1970 Varicella ? Visual impairment 1961 SURGICAL HX Past Surgical History: Procedure Laterality Date BREAST BIOPSY Right 1989 SECTION COLONOSCOPY EYE SURGERY 2019 Retinal detachment 2 virectomies 2019 [facility] I IMPLANT INTRAOCULAR LENS Left 02/12/2020 Performed by Hafsa Landeros MD at [facility] FAMILY HX Family History Problem Relation Age of Onset Alzheimer's disease Mother Arthritis Mother Hypertension Mother Ulcers Father COPD Sister MEDS Current Outpatient Medications Medication Sig Dispense Refill acidophilus-pectin, citrus 25 million cell -100 mg tablet Take 1 tablet by mouth daily with breakfast. ALPRAZolam (XANAX) 0.25 mg tablet Take 2 tablets (0.5 mg total) by mouth 3 (three) times a day as needed. atorvastatin (LIPITOR) 10 mg tablet Take 1 tablet (10 mg total) by mouth in the morning. B-complex with vitamin C tablet Take 1 tablet by mouth in the morning. calcium carbonate (OS-CARMEN) 600 mg (1,500 mg) tablet Take 1 tablet (600 mg total) by mouth in the morning. celecoxib (CeleBREX) 200 mg capsule Take 1 capsule (200 mg total) by mouth in the morning. cholecalciferol, vitamin D3, (VITAMIN D3) 1,000 units tablet Take 1 tablet (1,000 Units total) by mouth in the morning. clobetasoL (TEMOVATE) 0.05 % cream Apply 1 Application topically in the morning and 1 Application before bedtime. 30 g 0 dicyclomine (BENTYL) 20 mg tablet Take 1 tablet (20 mg total) by mouth Three times daily as needed. estradioL (ESTRACE) 0.01 % (0.1 mg/gram) vaginal cream Insert 1 g into the vagina in the morning. 42.5 g 1 latanoprost (XALATAN) 0.005 % ophthalmic solution Administer 1 drop to both eyes in the morning. levothyroxine (SYNTHROID, LEVOTHROID) 88 MCG tablet Take 1 tablet (88 mcg total) by mouth in the morning. meclizine (ANTIVERT) 25 mg tablet Chew 1 tablet (25 mg total) and swallow daily as needed for dizziness. omeprazole (PriLOSEC) 20 mg capsule Take 1 capsule (20 mg total) by mouth in the morning and 1 capsule (20 mg total) before bedtime. predniSONE (DELTASONE) 20 mg tablet Take 1 tablet (20 mg total) by mouth as needed. No current facility-administered medications for this visit. ALLERGIES No Known Allergies Review of Systems Review of Systems Objective BP 128/76 Ht 154.9 cm (5' 1 ) Wt 72.1 kg (159 lb) BMI 30.04 kg/m Physical Exam Physical Exam GEN AAOX3, NAD HEENT UNREMARKABLE HEART RRR LUNGS CTAB ABD BENIGN, OBESE, NTND PELVIS: EG APPROP FOR AGE, NO LESIONS, ATROPIC BUT IMPROVING VAGINA APPROP FOR AGE, NO LESIONS BIMANUAL NO MASSES OR TENDERNESS RECTAL DEFERRED EXTREM NO CCE, NO CALF TENDERNESS Assessment/Plan: LICHEN SCLEROSIS ATROPHIC VAGINITIS/GSM Discussed the patients symptoms and how the esterase and Clobetasol cream has been working. Discussed using the Clobetasol as needed with flare ups along with the esterase cream. Advised to use the Estrogen cream 2x daily on a regular basis. Advised to follow up for her annual examination. MD YASMANY ARGUELLO CMA Emma Leis 11/05/24 [id number] [facility] History of Presen t illness Narrative Associated Problem(s): Major depressive disorder, recurrent episode, mild (HCC) (CMS/HCC) Symptoms stable without celexa and monitor. Associated Problem(s): Generalized osteoarthritis of multiple sites Pain stable and continue celebrex. Increase activity and walk regularly. Associated Problem(s): Generalized anxiety disorder (CMS/HCC) Symptoms stable without celexa and monitor. Use xanax PRN. Associated Problem(s): Gastroesophageal reflux disease without esophagitis Symptoms controlled with omeprazole and continue. Images from the original note were not included. Subjective Patient ID: Ambreen Thacker is a 69 y.o. female who presents for Follow-up (6m/). Follow up depression, anxiety, OA, and GERD. Patient stable today. Stopped celexa and depression unchanged. Occasional symptoms and at times down, sad, and no motivation. Overall feels like symptoms tolerable. Anxiety stable. Not as stressed out or overwhelmed. Not as nervous or worry as much. Not as sotelo or irritable. Using xanax PRN and helps when needed. OA stable. Pain and stiffness in hands, knees, and ankles. Stiff and sore in am and improved once up and moving. Pain and swelling controlled with medication. GERD controlled with omeprazole. Denies epigastric pain or burning and not waking up with symptoms. Review of Systems Respiratory: Negative for cough, shortness of breath and wheezing. Cardiovascular: Negative for chest pain and palpitations. Gastrointestinal: Negative for abdominal pain, diarrhea, nausea and vomiting. Genitourinary: Negative for dysuria. Objective Physical Exam Constitutional: General: She is not in acute distress. Appearance: Normal appearance. HENT: Head: Normocephalic. Right Ear: Tympanic membrane normal. Left Ear: Tympanic membrane normal. Eyes: Extraocular Movements: Extraocular movements intact. Pupils: Pupils are equal, round, and reactive to light. Cardiovascular: Rate and Rhythm: Normal rate and regular rhythm. Heart sounds: No murmur heard. No friction rub. No gallop. Pulmonary: Effort: Pulmonary effort is normal. Breath sounds: Normal breath sounds. No wheezing, rhonchi or rales. Abdominal: General: Bowel sounds are normal. There is no distension. Palpations: Abdomen is soft. Tenderness: There is no abdominal tenderness. There is no guarding or rebound. Musculoskeletal: Cervical back: Neck supple. Right lower leg: No edema. Left lower leg: No edema. Neurological: Mental Status: She is alert. Assessment/Plan Problem List Items Addressed This Visit Adult hypothyroidism (CMS/HCC) Relevant Orders TSH T4, free T3, free Dyslipidemia (CMS/HCC) Relevant Orders Lipid panel Generalized anxiety disorder (CMS/HCC) Symptoms stable without celexa and monitor. Use xanax PRN. Gastroesophageal reflux disease without esophagitis Symptoms controlled with omeprazole and continue. Major depressive disorder, recurrent episode, mild (HCC) (CMS/HCC) - Primary Symptoms stable without celexa and monitor. Generalized osteoarthritis of multiple sites Pain stable and continue celebrex. Increase activity and walk regularly. Prediabetes Relevant Orders Hemoglobin A1c Encounter for long-term current use of medication Relevant Orders CBC and differential Hepatic function panel CKD stage 3b, GFR 30-44 ml/min (CMS/HCC) documented in this encounter [facility] 08-20-2024 History of Presen t illness Narrative History: Pt is a 69 y.o who has a virtual appointment to review biopsy results. Pt reports her past history with steroids which includes, Clobetasol and prednisone. Pt reports no redness or soreness. BIOPSY SITE IS WELL HEALED AND NOT CAUSING ANY PROBLEMS SHE HAS HAD EXCELLENT RESOLUTION OF HER SYMPTOMATOLOGY WITH CLOBETASOL CREAM GIVEN TO HER BY PREVIOUS PRACTITIONER 07/30/24 Final Pathologic Diagnosis Right vulva - biopsy: - Lichen sclerosus Assessment/Plan: DIAGNOSIS AND PATHOPHYSIOLOGY OF LICHEN SCLEROSUS IS DISCUSSED AT LENGTH AND ALL QUESTIONS WERE ANSWERED TIME OF DISCUSSION EQUALS 20 MINUTES Discussed Lichen sclerosis on vulva, assured it is not cancerous but can cause irritation. Discussed treatment for lichen sclerosis, including topical steroids. Pt reports having Clobetasol in the past, she took it once before bed and once in the morning. Discussed the best practices for Clobetasol. Discussed the risks of tea and spice supervisor steroids. Informed to apply Clobetasol 2x daily for 1 month and then 1x nightly for 1 month and then 2x weekly for 1 month. Will re-assess in 3 months and provide a new maintenance cream which will be Estrace cream 2x weekly at night. Exercise and diet restrictions were discussed. Pt questioned Epsom salt baths which were approved and recommended. Pt will follow-up in 3 months. RETURN TO OFFICE 3 MONTHS FOR FOLLOW UP MD Marii ARGUELLO 08/20/24 1353 documented in this encounter [facility] 07-30-2024 History of Presen t illness Narrative Punch Biopsy Procedure Note Pre-operative Diagnosis: 15 left vulvar lumps that are firm raised with white color underneath on left and two on right vulva. Pt states she has itching on the right side near the top but notes it has been improving with Clobetasole Post-operative Diagnosis: same Locations:vulva Indications: patient discomfort Anesthesia: Lidocaine 1% without epinephrine Procedure Details History of allergy to iodine: no Patient informed of the risks (including bleeding and infection) and benefits of the procedure and Written informed consent obtained. The lesion and surrounding area was given a sterile prep using betadine and draped in the usual sterile fashion. 1% lidocaine was injected superficially over the lesions an 11 blade scalpel was used to make small defects over each lesion. A white thick material was expressed from each lesion and the cyst wall grasped with hemostats and removed. Silver nitrate was used for hemostasis in a thin coat of antibiotic ointment was placed over the area. Physical exam: Aceto white changes at 6 and 12 o'clock and on both labia bilaterally, consistent with lichen changes. No Dysplasia. Condition: Stable Complications: none. Plan: 1. Instructed to keep the wound dry and covered for 24-48h and clean thereafter. 2. Warning signs of infection were reviewed. 3. Recommended that the patient use OTC analgesics as needed for pain. Advised the pt to get some dermaplast spray and use sitz baths to help with any pain and healing in the area. Also advised the pt to takeTylenol/Motrin for any pain after the biopsy. Noted that the Clobetasol can burn if she puts it over the biopsy site but also advised the pt to avoid taking until she comes back for her results. Advised follow up in 1-2 weeks. Lillian Almanza 07/30/24 1104 GENEVIEVE BENJAMIN MD documented in this encounter [facility] 07-13-2024 Miscellaneous Notes Patient was seen on 07/12/24 by Harman Jackson CNM for vaginal itching. Patient states a RX for Clobetasol was to be sent to [facility] in [place], but only dermoplast spray was sent. Visit Notes do not mention Clobetasol. Do you feel comfortable sending RX or should I send a message to Harman? Please advise. Thank you RX sent to [facility] in [place]. Advised Patient RX was sent. documented in this encounter [facility] 07-13-2024 Telephone encounter Note Patient was seen on 07/12/24 by Harman Jackson CNM for vaginal itching. Patient states a RX for Clobetasol was to be sent to [facility] in [place], but only dermoplast spray was sent. Visit Notes do not mention Clobetasol. Do you feel comfortable sending RX or should I send a message to Harman? Please advise. Thank you [facility] [employer] [facility] 07-13-2024 Telephone encounter Note RX sent to [facility] in [place]. [facility] 07-13-2024 Telephone encounter Note Advised [facility] [employer] [facility] 07-12-2024 History of Presen t illness Narrative Ambreen Thacker is a 69 y.o.female. No LMP recorded. Patient is postmenopausal.. She presents with vaginal itching and irritation and some slight discharge after taking an antibiotic several months ago. She took monistat 4 months ago, which helped but then it returned. The itching is only to the labia and she denies discharge. She has not used anything this time. She wears cotton underwear and she does not cleanse internally. She denies new soaps/detergents. She is not sexually active for yrs. OB History No obstetric history on file. MEDICAL HX Past Medical History: Diagnosis Date Cataract Chronic kidney disease Glaucoma 2018 Hyperthyroidism 1999 Ulcer (traumatic) of oral mucosa 1970 SURGICAL HX Past Surgical History: Procedure Laterality Date BREAST BIOPSY Right 1989 SECTION COLONOSCOPY PHACO KELMAN I IMPLANT INTRAOCULAR LENS Left 02/12/2020 Performed by Hafsa Landeros MD at [facility] FAMILY HX Family History Problem Relation Age of Onset Alzheimer's disease Mother Ulcers Father MEDS Current Outpatient Medications Medication Sig Dispense Refill acidophilus-pectin, citrus 25 million cell -100 mg tablet Take 1 tablet by mouth daily with breakfast. ALPRAZolam (XANAX) 0.25 mg tablet Take 2 tablets (0.5 mg total) by mouth 3 (three) times a day as needed. atorvastatin (LIPITOR) 10 mg tablet Take 1 tablet (10 mg total) by mouth in the morning. B-complex with vitamin C tablet Take 1 tablet by mouth in the morning. calcium carbonate (OS-CARMEN) 600 mg (1,500 mg) tablet Take 1 tablet (600 mg total) by mouth in the morning. celecoxib (CeleBREX) 200 mg capsule Take 1 capsule (200 mg total) by mouth in the morning. cholecalciferol, vitamin D3, (VITAMIN D3) 1,000 units tablet Take 1 tablet (1,000 Units total) by mouth in the morning. dicyclomine (BENTYL) 20 mg tablet Take 1 tablet (20 mg total) by mouth Three times daily as needed. latanoprost (XALATAN) 0.005 % ophthalmic solution Administer 1 drop to both eyes in the morning. levothyroxine (SYNTHROID, LEVOTHROID) 88 MCG tablet Take 1 tablet (88 mcg total) by mouth in the morning. meclizine (ANTIVERT) 25 mg tablet Chew 1 tablet (25 mg total) and swallow daily as needed for dizziness. omeprazole (PriLOSEC) 20 mg capsule Take 1 capsule (20 mg total) by mouth in the morning and 1 capsule (20 mg total) before bedtime. predniSONE (DELTASONE) 20 mg tablet Take 1 tablet (20 mg total) by mouth as needed. No current facility-administered medications for this visit. ALLERGIES No Known Allergies Review of Systems As noted in HPI Objective BP 132/54 Ht 154.9 cm (5' 1 ) Wt 71.1 kg (156 lb 12.8 oz) BMI 29.63 kg/m Physical Exam Vitals and nursing note reviewed. Constitutional: Appearance: Normal appearance. HENT: Head: Normocephalic and atraumatic. Eyes: Conjunctiva/sclera: Conjunctivae normal. Pulmonary: Effort: Pulmonary effort is normal. Genitourinary: Exam position: Lithotomy position. Pubic Area: No rash or pubic lice. Labia: Right: No rash, tenderness, lesion or injury. Left: No rash, tenderness, lesion or injury. Urethra: No prolapse, urethral pain, urethral swelling or urethral lesion. Comments: Vulva w/depigmentation which appears whitish in color. Right labia minora atrophied. No signs of infection. At base of intraoitus, there is a small slit-like opening/crack. No discharge, no signs of infection Skin: General: Skin is warm and dry. Neurological: General: No focal deficit present. Mental Status: She is alert. Psychiatric: Mood and Affect: Mood normal. Behavior: Behavior normal. Assessment/Plan: Ambreen was seen today for vaginal itching and vaginal irritation. Diagnoses and all orders for this visit: Vaginal itching - Vaginitis Panel PCR; Future Vaginal irritation - Vaginitis Panel PCR; Future Acute vaginitis - Vaginitis Panel PCR; Future Itching of vulva - benzocaine-menthoL (DERMOPLAST) topical spray 1 Application Possible lichens sclerosis Discussed w/pt. Possible diagnosis, need for biopsy and pt. Verbalized understanding F/U with physician for biopsy and treatment YASMANY AMAYA, ELIZABETH Araiza APRN, APRN-CNM [id number]/12/[id number] documented in this encounter [facility] 05-03-2024 History of Presen t illness Narrative Ambreen Thacker Date of visit: 05/03/2024 Date of : 1955 Age: 69 y.o. Patient Active Problem List Diagnosis Chest pain, unspecified type No Known Allergies Current Outpatient Medications Medication Sig Dispense Refill acidophilus-pectin, citrus 25 million cell -100 mg tablet Take 1 tablet by mouth daily with breakfast. ALPRAZolam (XANAX) 0.25 mg tablet Take 2 tablets (0.5 mg total) by mouth 3 (three) times a day as needed. atorvastatin (LIPITOR) 10 mg tablet Take 1 tablet (10 mg total) by mouth in the morning. B-complex with vitamin C tablet Take 1 tablet by mouth in the morning. calcium carbonate (OS-CARMEN) 600 mg (1,500 mg) tablet Take 1 tablet (600 mg total) by mouth in the morning. celecoxib (CeleBREX) 200 mg capsule Take 1 capsule (200 mg total) by mouth in the morning. cholecalciferol, vitamin D3, (VITAMIN D3) 1,000 units tablet Take 1 tablet (1,000 Units total) by mouth in the morning. dicyclomine (BENTYL) 20 mg tablet Take 1 tablet (20 mg total) by mouth Three times daily as needed. latanoprost (XALATAN) 0.005 % ophthalmic solution Administer 1 drop to both eyes in the morning. levothyroxine (SYNTHROID, LEVOTHROID) 88 MCG tablet Take 1 tablet (88 mcg total) by mouth in the morning. meclizine (ANTIVERT) 25 mg tablet Chew 1 tablet (25 mg total) and swallow daily as needed for dizziness. omeprazole (PriLOSEC) 20 mg capsule Take 1 capsule (20 mg total) by mouth in the morning and 1 capsule (20 mg total) before bedtime. predniSONE (DELTASONE) 20 mg tablet Take 1 tablet (20 mg total) by mouth as needed. No current facility-administered medications for this visit. Chief Complaint Patient presents with Follow-up EST PT F/U 6 MS ECHO DONE SCHED W/PT L/S MAS History of Present Illness Patient is a 69-year-old female who presents to cardiology clinic today for follow-up. Patient is doing well. Patient denies any chest pain, shortness of breath, palpitations, lightheadedness, dizziness, or syncope. Past Medical History: Diagnosis Date Cataract Chronic kidney disease Glaucoma 2017 Hyperthyroidism 1999 Ulcer (traumatic) of oral mucosa 1969 No data recorded No data recorded No data recorded Past Surgical History: Procedure Laterality Date BREAST BIOPSY Right 1989 SECTION COLONOSCOPY PHACO KELMAN I IMPLANT INTRAOCULAR LENS Left 02/12/2020 Performed by Hafsa Landeros MD at [facility] Family History Problem Relation Age of Onset Alzheimer's disease Mother Ulcers Father Social History Socioeconomic History Marital status: Spouse name: Not on file Number of children: Not on file Years of education: Not on file Highest education level: Not on file Occupational History Not on file Tobacco Use Smoking status: Former Current packs/day: 0.00 Types: Cigarettes Quit date: 2001 Years since quittin.7 Smokeless tobacco: Never Vaping Use Vaping status: Never Used Substance and Sexual Activity Alcohol use: Not Currently Drug use: Never Sexual activity: Not Currently Partners: Male Other Topics Concern Caffeine Use Yes Social History Narrative Not on file Social Determinants of Health Financial Resource Strain: Low Risk (10/18/2023) [facility] Overall Financial Resource Strain (CARDIA) Difficulty of Paying Living Expenses: Not very hard Food Insecurity: No Food Insecurity (05/03/2024) Hunger Screening Food Insecurity - Worry: Never True Food Insecurity - Inability: Never True Transportation Needs: Patient Declined (10/18/2023) [facility] PRAPARE - Transportation Lack of Transportation (Medical): Patient declined Lack of Transportation (Non-Medical): Patient declined Physical Activity: Inactive (10/18/2023) [facility] Exercise Vital Sign Days of Exercise per Week: 0 days Minutes of Exercise per Session: 0 min Stress: Stress Concern Present (10/18/2023) Received from [facility] [place] [facility] Occup[facility] - Occupational Stress Questionnaire Feeling of Stress : Rather much Social Connections: Socially Isolated (10/18/2023) [facility] Social Connection and Isolation Panel [NHANES] Frequency of Communication with Friends and Family: More than three times a week Frequency of Social Gatherings with Friends and Family: Once a week Attends Mandaen Services: Never Active Member of Clubs or Organizations: No Attends Club or Organization Meetings: Never Marital Status: Interpersonal Safety: Not on file Housing Instability: Low Risk (10/18/2023) [facility] Housing Stability Vital Sign Unable to Pay for Housing in the Last Year: No Number of Places Lived in the Last Year: 1 Unstable Housing in the Last Year: No Review of Systems Review of Systems Constitutional: Positive for malaise/fatigue. HENT: Negative. Eyes: Negative. Cardiovascular: Negative. Respiratory: Negative. Endocrine: Negative. Hematologic/Lymphatic: Negative. Skin: Negative. Musculoskeletal: Positive for arthritis. Gastrointestinal: Negative. Genitourinary: Negative. Neurological: Positive for light-headedness. Psychiatric/Behavioral: Positive for depression. The patient is nervous/anxious. Vascular: Negative. CARDIOVASCULAR: Please review HPI. Physical Examination General appearance: Alert, oriented and cooperative. In no acute distress. Skin: Warm and dry to touch. Head: Normocephalic, without obvious abnormality, atraumatic. Ears, Nose, Mouth, Throat: Throat clear without erythema or exudate. Dentition intact. Eyes: Conjunctivae unremarkable, EOM intact. Neck: No JVD, No carotid bruit. Neck supple, trachea midline. Respiratory: Clear to auscultation bilaterally, no use of accessory muscles. Cardiovascular: RRR with normal S1 and S2 with no murmurs. Gastrointestinal: Soft, non-tender. Bowel sounds normal. Musculoskeletal: No peripheral edema. Neurologic: Oriented to time, person and place, affect appropriate. No focal/major motor defects noted. Psychiatric: Appropriate mood, memory and judgement. VITAL SIGNS: BP 132/78 (BP Site: Left Arm, BP Postition: Sitting) Pulse 80 Ht 154.9 cm (5' 0.98 ) Wt 71.8 kg (158 lb 3.2 oz) SpO2 98% BMI 29.91 kg/m No orders of the defined types were placed in this encounter. There are no discontinued medications. IMPRESSIONS/PLAN 1. Chest pain, unspecified type 2. Nonrheumatic mitral valve regurgitation 3. Nonrheumatic aortic valve insufficiency 4. Mixed hyperlipidemia Assessment: Chest pain in the setting of COVID-19 infection Mild MR/TR/AI on TTE 01/26/2024 Hyperlipidemia CKD Hypothyroidism Former smoker TTE 01/26/2024: 60 65%, mild AI, [id number] MR/TR Previously refused stress testing. Plan: An episode of chest pain back at beginning of the year during COVID infection. No recurrence. She had an echocardiogram done 01/26/2024 we reviewed the results today in detail. No recent lipid panel in our system but she states it was recently checked at [facility], will try to obtain these records. She is currently on atorvastatin 10 mg daily. Blood pressure is 132/78 today in the office. She has been checking it occasionally at home and mostly gets numbers in the 120 systolic. Continue to monitor. Okay to follow-up with Cardiology in 1 year. TODAYS ORDERS No orders of the defined types were placed in this encounter. FOLLOW UP No follow-ups on file. PCP: CARROLL AVITIA MD Referring Physician: Carroll Avitia MD [address] [place] [address] documented in this encounter [facility] 05-02-2024 Miscellaneous Notes Called patient to remind them to bring their most current copy of their medication list with them to their appt. Patient verbalizes understanding. documented in this encounter [facility] 05-02-2024 Telephone encounter Note Called patient to remind them to bring their most current copy of their medication list with them to their appt. Patient verbalizes understanding. [facility] 04-12-2024 History of Presen t illness Narrative Associated Problem(s): CKD stage 3a, GFR 45-59 ml/min ([facility]) Renal function stable Associated Problem(s): Major depressive disorder, recurrent episode, mild (HCC) (CMS/HCC) Symptoms controlled with medication and continue. Associated Problem(s): Generalized osteoarthritis of multiple sites Pain stable and continue celebrex. Increase activity and walk regularly. Associated Problem(s): Generalized anxiety disorder (CMS/HCC) Symptoms controlled with medication and continue. Use xanax PRN. Associated Problem(s): Gastroesophageal reflux disease without esophagitis Symptoms controlled with omeprazole and continue. Subjective Patient ID: Ambreen Thacker is a 69 y.o. female who presents for Follow-up (6m). Follow up depression, anxiety, OA, and GERD. Patient stable today. Depression tolerable with celexa. Occasional symptoms and at times down, sad, and no motivation. Overall feels like symptoms tolerable. Anxiety stable. Not as stressed out or overwhelmed. Not as nervous or worry as much. Not as sotelo or irritable. Using xanax PRN and helps when needed. OA stable. Pain and stiffness in hands, knees, and ankles. Stiff and sore in am and improved once up and moving. Pain and swelling controlled with medication. GERD controlled with omeprazole. Denies epigastric pain or burning and not waking up with symptoms. Review of Systems Respiratory: Negative for cough, shortness of breath and wheezing. Cardiovascular: Negative for chest pain and palpitations. Gastrointestinal: Negative for abdominal pain, diarrhea, nausea and vomiting. Genitourinary: Negative for dysuria. Objective Physical Exam Constitutional: General: She is not in acute distress. Appearance: Normal appearance. HENT: Head: Normocephalic. Right Ear: Tympanic membrane normal. Left Ear: Tympanic membrane normal. Eyes: Extraocular Movements: Extraocular movements intact. Pupils: Pupils are equal, round, and reactive to light. Cardiovascular: Rate and Rhythm: Normal rate and regular rhythm. Heart sounds: No murmur heard. No friction rub. No gallop. Pulmonary: Effort: Pulmonary effort is normal. Breath sounds: Normal breath sounds. No wheezing, rhonchi or rales. Abdominal: General: Bowel sounds are normal. There is no distension. Palpations: Abdomen is soft. Tenderness: There is no abdominal tenderness. There is no guarding or rebound. Musculoskeletal: Cervical back: Neck supple. Right lower leg: No edema. Left lower leg: No edema. Neurological: Mental Status: She is alert. Assessment/Plan Problem List Items Addressed This Visit Adult hypothyroidism (CMS/HCC) Relevant Medications levothyroxine (Synthroid, Levoxyl) 88 MCG tablet Generalized anxiety disorder (CMS/HCC) Symptoms controlled with medication and continue. Use xanax PRN. Relevant Medications ALPRAZolam (Xanax) 0.5 MG tablet Gastroesophageal reflux disease without esophagitis Symptoms controlled with omeprazole and continue. Major depressive disorder, recurrent episode, mild (HCC) (CMS/HCC) - Primary Symptoms controlled with medication and continue. Generalized osteoarthritis of multiple sites Pain stable and continue celebrex. Increase activity and walk regularly. Relevant Medications celecoxib (CeleBREX) 200 MG capsule CKD stage 3a, GFR 45-59 ml/min (CMS/HCC) Renal function stable documented in this encounter [facility] 11-08-2023 History of Presen t illness Narrative Ambreen Thacker Date of visit: 11/08/2023 Date of : 1955 Age: 68 y.o. Patient Active Problem List Diagnosis Chest pain, unspecified type No Known Allergies Current Outpatient Medications Medication Sig Dispense Refill acidophilus-pectin, citrus 25 million cell -100 mg tablet Take 1 tablet by mouth daily with breakfast. ALPRAZolam (XANAX) 0.25 mg tablet Take 1 tablet (0.25 mg total) by mouth 3 (three) times a day. atorvastatin (LIPITOR) 10 mg tablet Take 1 tablet (10 mg total) by mouth in the morning. B-complex with vitamin C tablet Take 1 tablet by mouth in the morning. calcium carbonate (OS-CARMEN) 600 mg (1,500 mg) tablet Take 1 tablet (600 mg total) by mouth in the morning. celecoxib (CeleBREX) 200 mg capsule Take 1 capsule (200 mg total) by mouth in the morning. cholecalciferol, vitamin D3, (VITAMIN D3) 1,000 units tablet Take 1 tablet (1,000 Units total) by mouth in the morning. dicyclomine (BENTYL) 20 mg tablet Take 1 tablet (20 mg total) by mouth Three times daily as needed. latanoprost (XALATAN) 0.005 % ophthalmic solution Administer 1 drop to both eyes in the morning. levothyroxine (SYNTHROID, LEVOTHROID) 88 MCG tablet Take 1 tablet (88 mcg total) by mouth in the morning. meclizine (ANTIVERT) 25 mg tablet Chew 1 tablet (25 mg total) and swallow daily as needed for dizziness. omeprazole (PriLOSEC) 20 mg capsule Take 1 capsule (20 mg total) by mouth in the morning and 1 capsule (20 mg total) before bedtime. predniSONE (DELTASONE) 20 mg tablet Take 1 tablet (20 mg total) by mouth as needed. ascorbic acid, vitamin C, (ascorbic acid with pedro pablo hips) 500 mg tablet Take 1 tablet (500 mg total) by mouth in the morning. cyanocobalamin 500 MCG tablet Take 1 tablet (500 mcg total) by mouth in the morning. IBU 800 mg tablet Take 1 tablet (800 mg total) by mouth every 8 (eight) hours as needed. levothyroxine (SYNTHROID, LEVOTHROID) 112 MCG tablet Take 1 tablet (112 mcg total) by mouth in the morning. s-adenosylmethionine (-E) 200 mg tablet Take 200 mg by mouth daily. No current facility-administered medications for this visit. 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 She was admitted to the ER last month with an episode of chest pain. At that time she was diagnosed with COVID all other family members were also diagnosed with COVID. She was eating yogurt and had severe chest pain her family members all had vomiting and she got really stressed. Had pain in the center of the chest with sharp came to the ER was ruled out for acute coronary syndrome. She was asked to stay overnight to which she refused as she is the caregiver of her son. No prior cardiac history. Does not take medications for hypertension diabetes mellitus or hyperlipidemia. She is CKD stage 3 unclear in etiology blood pressure today is 110/80. She does take Celebrex on a daily basis for knee arthritis. She is nonsmoker otherwise trying to be active. Past Medical History: Diagnosis Date Cataract Chronic kidney disease Glaucoma 2018 Hyperthyroidism 1999 Ulcer (traumatic) of oral mucosa 1969 No data recorded No data recorded No data recorded Past Surgical History: Procedure Laterality Date BREAST BIOPSY Right 1989 SECTION COLONOSCOPY PHACO KELMAN I IMPLANT INTRAOCULAR LENS Left 02/12/2020 Performed by Hafsa Landeros MD at [facility] Family History Problem Relation Age of Onset Alzheimer's disease Mother Ulcers Father Social History Socioeconomic History Marital status: Spouse name: Not on file Number of children: Not on file Years of education: Not on file Highest education level: Not on file Occupational History Not on file Tobacco Use Smoking status: Former Types: Cigarettes Quit date: 2001 Years since quittin.2 Smokeless tobacco: Never Vaping Use Vaping Use: Never used Substance and Sexual Activity Alcohol use: Not Currently Drug use: Never Sexual activity: Not Currently Partners: Male Other Topics Concern Caffeine Use Yes Social History Narrative Not on file Social Determinants of Health Financial Resource Strain: Not on file Food Insecurity: No Food Insecurity (11/08/2023) Hunger Screening Food Insecurity - Worry: Never True Food Insecurity - Inability: Never True Transportation Needs: Not on file Physical Activity: Not on file Stress: Not on file Social Connections: Not on file Interpersonal Safety: Not on file Housing Instability: Not on file Review of Systems Review of Systems Constitutional: Negative. HENT: Negative. Eyes: Negative. Respiratory: Negative. Hematologic/Lymphatic: Negative. Skin: Negative. Musculoskeletal: Negative. Gastrointestinal: Negative. Neurological: Negative. Psychiatric/Behavioral: The patient is nervous/anxious. Allergic/Immunologic: Negative. CARDIOVASCULAR: Please review HPI. Physical Examination General appearance: Alert, oriented and cooperative. In no acute distress. Skin: Warm and dry to touch. Head: Normocephalic, without obvious abnormality, atraumatic. Ears, Nose, Mouth, Throat: Throat clear without erythema or exudate. Dentition intact. Eyes: Conjunctivae unremarkable, EOM intact. Neck: No JVD, No carotid bruit. Neck supple, trachea midline. Respiratory: Clear to auscultation bilaterally, no use of accessory muscles. Cardiovascular: RRR with normal S1 and S2 with no murmurs. Gastrointestinal: Soft, non-tender. Bowel sounds normal. Musculoskeletal: No peripheral edema. Neurologic: Oriented to time, person and place, affect appropriate. No focal/major motor defects noted. Psychiatric: Appropriate mood, memory and judgement. VITAL SIGNS: Ht 154.9 cm (5' 1 ) Wt 72.1 kg (159 lb) BMI 30.04 kg/m Orders Placed or Reconciled This Encounter Medications levothyroxine (SYNTHROID, LEVOTHROID) 88 MCG tablet Sig: Take 1 tablet (88 mcg total) by mouth in the morning. dicyclomine (BENTYL) 20 mg tablet Sig: Take 1 tablet (20 mg total) by mouth Three times daily as needed. meclizine (ANTIVERT) 25 mg tablet Sig: Chew 1 tablet (25 mg total) and swallow daily as needed for dizziness. acidophilus-pectin, citrus 25 million cell -100 mg tablet Sig: Take 1 tablet by mouth daily with breakfast. There are no discontinued medications. IMPRESSIONS/PLAN Chest pain - appears noncardiac. COVID infection. All the family members were sick had recurrent vomiting.. She was ruled out for acute coronary syndrome recently. Some risk factors including advanced age however no hypertension diabetes mellitus or tobacco abuse. She does take Celebrex on a daily basis with a CKD stage 3. I recommended stress test patient does not want to undergo Maria Del Carmen stress test she tells me her friends at bad experience with Maria Del Carmen stress test. She does not want to undergo any kind of stress testing at this point of time I recommended an echo to evaluate for LV structural abnormalities. Meanwhile asked to keep a watch on the blood pressure and continue to monitor symptoms. Thus far has no recurrence of chest pain. If echo is unremarkable will see her back in 6 months 2. Hyperlipidemia - on Lipitor 10 F/u 6 months TODAYS ORDERS No orders of the defined types were placed in this encounter. FOLLOW UP No follow-ups on file. PCP: CARROLL AVITIA MD Referring Physician: Shakira Mejia DO [address] [place] [address] documented in this encounter [facility] 11-07-2023 Miscellaneous Notes Called patient to remind them to bring their most current copy of their medication list with them to their appt. Patient verbalizes understanding. documented in this encounter [facility] 11-07-2023 Telephone encounter Note Called patient to remind them to bring their most current copy of their medication list with them to their appt. Patient verbalizes understanding. [facility] 10-07-2023 Miscellaneous Notes This is notification that we have received a referral for the patient. Please reach out to schedule new patient appointment in your office. Please check the referral tab in appt desk for details and to make sure to assign referral or schedule off of it. Thank you. documented in this encounter [facility] 10-07-2023 Telephone encounter Note This is notification that we have received a referral for the patient. Please reach out to schedule new patient appointment in your office. Please check the referral tab in appt desk for details and to make sure to assign referral or schedule off of it. Thank you. 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 documented in this encounter [employer] Phone: evaluation note* Diagnosis Major depressive disorder, recurrent episode, mild (HCC) (CMS/HCC)- Primary Major depressive disorder, recurrent episode, mild Generalized anxiety disorder (CMS/HCC) Generalized anxiety disorder Generalized osteoarthritis of multiple sites Generalized osteoarthrosis, involving multiple sites Gastroesophageal reflux disease without esophagitis Esophageal reflux Dyslipidemia (CMS/HCC) Other and unspecified hyperlipidemia Prediabetes Other abnormal glucose Encounter for long-term current use of medication Adult hypothyroidism (CMS/HCC) Unspecified hypothyroidism Major depressive disorder, recurrent episode, mild (HCC) (CMS/HCC)- Primary Major depressive disorder, recurrent episode, mild Generalized anxiety disorder (CMS/HCC) Generalized anxiety disorder Generalized osteoarthritis of multiple sites Generalized osteoarthrosis, involving multiple sites Gastroesophageal reflux disease without esophagitis Esophageal reflux Adult hypothyroidism (CMS/HCC) Unspecified hypothyroidism CKD stage 3a, GFR 45-59 ml/min (CMS/HCC) Irritable bowel syndrome with both constipation and diarrhea- Primary Generalized anxiety disorder ([facility]/HCC) Generalized anxiety disorder Irritable bowel syndrome with diarrhea Irritable bowel syndrome documented in this encounter [facility] HealthcareEvaluation note* Diagnosis Major depressive disorder, recurrent episode, mild (HCC) ([facility])- Primary Major depressive disorder, recurrent episode, mild Generalized anxiety disorder (CMS/HCC) Generalized anxiety disorder Generalized osteoarthritis of multiple sites Generalized osteoarthrosis, involving multiple sites Gastroesophageal reflux disease without esophagitis Esophageal reflux Adult hypothyroidism ([facility]) Unspecified hypothyroidism CKD stage 3a, GFR 45-59 ml/min ([facility]) documented in this encounter [facility] HealthcareEvaluation note* Diagnosis Vaginal irritation- Primary Pruritus of genital organs [facility] Diagnosis Chest pain, unspecified type- Primary Mixed hyperlipidemia Stage 1 chronic kidney disease [facility] Diagnosis Chest pain, unspecified type- Primary Nonrheumatic mitral valve regurgitation Nonrheumatic aortic valve insufficiency Mixed hyperlipidemia [facility] Diagnosis Vulvar itching- Primary [facility] Diagnosis Vaginal itching- Primary Pruritus of genital organs Vaginal irritation Pruritus of genital organs Acute vaginitis Unspecified vaginitis and vulvovaginitis Itching of vulva Pruritus of genital organs [facility] Diagnosis Vaginal irritation- Primary Pruritus of genital organs [facility] Diagnosis Major depressive disorder, recurrent episode, mild (HCC) ([facility])- Primary Major depressive disorder, recurrent episode, mild Generalized anxiety disorder ([facility]) Generalized anxiety disorder Generalized osteoarthritis of multiple sites Generalized osteoarthrosis, involving multiple sites Gastroesophageal reflux disease without esophagitis Esophageal reflux Dyslipidemia ([facility]) Other and unspecified hyperlipidemia Prediabetes Other abnormal glucose Encounter for long-term current use of medication Adult hypothyroidism ([facility]) Unspecified hypothyroidism Major depressive disorder, recurrent episode, mild (HCC) ([facility])- Primary Major depressive disorder, recurrent episode, mild Generalized anxiety disorder (CMS/HCC) Generalized anxiety disorder Generalized osteoarthritis of multiple sites Generalized osteoarthrosis, involving multiple sites Gastroesophageal reflux disease without esophagitis Esophageal reflux Adult hypothyroidism ([facility]/HCC) Unspecified hypothyroidism CKD stage 3a, GFR 45-59 ml/min (CMS/HCC) Major depressive disorder, recurrent episode, mild (HCC) (CMS/HCC)- Primary Major depressive disorder, recurrent episode, mild Generalized anxiety disorder (CMS/HCC) Generalized anxiety disorder Generalized osteoarthritis of multiple sites Generalized osteoarthrosis, involving multiple sites Gastroesophageal reflux disease without esophagitis Esophageal reflux Adult hypothyroidism (CMS/HCC) Unspecified hypothyroidism CKD stage 3a, GFR 45-59 ml/min ([facility]) Prediabetes Other abnormal glucose Encounter for long-term current use of medication Dyslipidemia ([facility]) Other and unspecified hyperlipidemia CKD stage 3b, GFR 30-44 ml/min (CMS/HCC) documented in this encounter [facility] HealthcareEvaluation note* Diagnosis Major depressive disorder, recurrent episode, mild (HCC) ([facility])- Primary Major depressive disorder, recurrent episode, mild Generalized anxiety disorder (CMS/HCC) Generalized anxiety disorder Generalized osteoarthritis of multiple sites Generalized osteoarthrosis, involving multiple sites Gastroesophageal reflux disease without esophagitis Esophageal reflux Dyslipidemia (CMS/HCC) Other and unspecified hyperlipidemia Prediabetes Other abnormal glucose Encounter for long-term current use of medication Adult hypothyroidism ([facility]) Unspecified hypothyroidism Major depressive disorder, recurrent episode, mild (HCC) ([facility]/HCC)- Primary Major depressive disorder, recurrent episode, mild Generalized anxiety disorder (CMS/HCC) Generalized anxiety disorder Generalized osteoarthritis of multiple sites Generalized osteoarthrosis, involving multiple sites Gastroesophageal reflux disease without esophagitis Esophageal reflux Adult hypothyroidism (CMS/HCC) Unspecified hypothyroidism CKD stage 3a, GFR 45-59 ml/min (CMS/HCC) Major depressive disorder, recurrent episode, mild (HCC) ([facility]/HCC)- Primary Major depressive disorder, recurrent episode, mild Generalized anxiety disorder ([facility]/HCC) Generalized anxiety disorder Generalized osteoarthritis of multiple sites Generalized osteoarthrosis, involving multiple sites Gastroesophageal reflux disease without esophagitis Esophageal reflux Adult hypothyroidism (CMS/HCC) Unspecified hypothyroidism CKD stage 3a, GFR 45-59 ml/min ([facility]/HCC) Prediabetes Other abnormal glucose Encounter for long-term current use of medication Dyslipidemia ([facility]) Other and unspecified hyperlipidemia CKD stage 3b, GFR 30-44 ml/min ([facility]/HCC) Generalized anxiety disorder ([facility]) Generalized anxiety disorder documented in this encounter [facility] HealthcareEvaluation note* Diagnosis Vaginal irritation Pruritus of genital organs Vulvar itching [facility] Diagnosis Major depressive disorder, recurrent episode, mild (HCC) ([facility]/HCC)- Primary Major depressive disorder, recurrent episode, mild Generalized anxiety disorder ([facility]/HCC) Generalized anxiety disorder Generalized osteoarthritis of multiple sites Generalized osteoarthrosis, involving multiple sites Gastroesophageal reflux disease without esophagitis Esophageal reflux Dyslipidemia ([facility]/HCC) Other and unspecified hyperlipidemia Prediabetes Other abnormal glucose Encounter for long-term current use of medication Adult hypothyroidism ([facility]/HCC) Unspecified hypothyroidism Major depressive disorder, recurrent episode, mild (HCC) ([facility])- Primary Major depressive disorder, recurrent episode, mild Generalized anxiety disorder ([facility]/HCC) Generalized anxiety disorder Generalized osteoarthritis of multiple sites Generalized osteoarthrosis, involving multiple sites Gastroesophageal reflux disease without esophagitis Esophageal reflux Adult hypothyroidism ([facility]) Unspecified hypothyroidism CKD stage 3a, GFR 45-59 ml/min ([facility]) Major depressive disorder, recurrent episode, mild (HCC) ([facility])- Primary Major depressive disorder, recurrent episode, mild Generalized anxiety disorder ([facility]/HCC) Generalized anxiety disorder Generalized osteoarthritis of multiple sites Generalized osteoarthrosis, involving multiple sites Gastroesophageal reflux disease without esophagitis Esophageal reflux Adult hypothyroidism ([facility]) Unspecified hypothyroidism CKD stage 3a, GFR 45-59 ml/min ([facility]) Prediabetes Other abnormal glucose Encounter for long-term current use of medication Dyslipidemia ([facility]) Other and unspecified hyperlipidemia CKD stage 3b, GFR 30-44 ml/min ([facility]) Generalized anxiety disorder ([facility]) Generalized anxiety disorder Dyslipidemia ([facility]) Other and unspecified hyperlipidemia documented in this encounter [facility] HealthcareEvaluation note* Diagnosis Vaginal irritation- Primary Pruritus of genital organs Acute vaginitis Unspecified vaginitis and vulvovaginitis [facility] Diagnosis Onset Date Resolution Status Admit Date Adult hypothyroidism acute Apr 1:59pm Medicare annual wellness vis it, subsequent acute April 29 1:59pm [facility] Work Phone: Hospital Discharge instructions* Instructions* Randi Sheth RN - 08/21/2019 No alcoholic beverages, no driving or operating machinery, no making important decisions for 24 hours. Children should maintain quiet play ( games, movies, books ) for 24 hours. You may have a normal diet but should eat lightly day of surgery. Drink plenty of fluids. Urinate within 8 hours after surgery, if unable to urinate call your doctor [facility]: InstructionsNot on filedocumented in this encounter [facility] filedocumented in this encounter [facility] filedocumented in this encounter [facility] filedocumented in this encounter [facility] on filedocumented in this encounter [facility] on filedocumented in this encounter [facility] on filedocumented in this encounter [facility]* Attachments The following attachments cannot be sent through Care Everywhere. * Lichen sclerosus (Italian) documented in [facility] encounter[facility]ructionsNot on file documented in this encounter[facility] System[facility]ructionsNot on file documented in this encounter[facility] System[facility]ructionsNot on file [facility] for referral (narrative)No reason for referral information [facility]Ohio [facility] Work Phone: Discharge Instructions * Instructions* Lucero Webster RN - 05/15/2020 See attached discharge instructions No alcoholic beverages, no driving or operating machinery, no making important decisions for 24 hours. You may have a normal diet but should eat lightly day of surgery. Drink plenty of fluids. Urinate within 8 hours after surgery, if unable to urinate call your doctor documented in this encounter* Instructions* Never, Lili Valentin RN - 05/24/2020 No alcoholic beverages, no driving or operating machinery, no making important decisions for 24 hours. Children should maintain quiet play ( games, movies, books ) for 24 hours. You may have a normal diet but should eat lightly day of surgery. Drink plenty of fluids. Urinate within 8 hours after surgery, if unable to urinate call your doctor documented in this encounter History of Present Illness * Lucero Webster RN - 05/15/2020 1:00 PM EDT Waiting for son to arrive. He stated he would be here at approx 13:30 * Lucero Webster RN - 05/15/2020 12:50 PM EDT Spoke with son and reviewed d/c instructions * Michelle Brown RN - 05/15/2020 11:[address] Pabon in and spoke with patient. Updated on start delay per Dr. Pabon. * Michelle Brown RN - 05/15/2020 9:40 AM EDT Attempted to verify discharge ride with son Maira. No answer and left message on voice mail. documented in this encounter Assessments Diagnosis Macular pucker, left eye Macular puckering of retina Diagnosis Ghost cell glaucoma, left eye Advance Directives Documents on File Type Date Recorded Patient House Rn Expl anation ACP-Advance Directive ACP-Power of Tube And Manifold Builder Documents on File Type Date Recorded Patient House Rn Expl anation ACP-Advance Directive ACP-Power of Tube And Manifold Builder Documents on File Type Date Recorded Patient House Rn Expl anation Advance Directives and Living Will Power of Tube And Manifold Builder Advance Directive Response Recorded Date/ Time Advance Directives No November 04 12:30pm Summary Purpose Family History No Family History Records FoundNo Family History Records FoundNo Family History Records FoundNo Family History Records FoundNo Family History Records FoundNo Family History Records FoundNo Family History Records Found Reason for Referral Specialty Diagnoses / Procedures Referred By Aldo t Referred To Contact Diagnoses Chest pain, unspecified type Stage 1 chronic kidney disease Procedures Echo complete W/O contrast Hal Lobo MD [address] [place] [address] Referral ID Status Reason Start Date Expiration Date V isits Requested Visits Authorized [id number] Pending Review 11/08/2023 11/07/2024 1 1 Chief Complaint and Reason for Visit Reason for Visit Admit Date Adult hypothyroidism April 29, 2025 1:59pm Medicare annual wellness visit, subseque nt April 29, 2025 1:59pm Additional Source Comments Reason for Visit (unrecogniz ed section and content) Status Reason Specialty Diagnoses / Procedures Referre d By Contact Referred To Contact Diagnoses Macular pucker, left eye MACULAR PUCKER LEFT EYE Procedures MA OFFICE/OUTPT VISIT,PROCEDURE ONLY MA REPAIR COMPLEX RETINA DETACH VITRECTOMY & MEMB PEEL VITRECTOMY 25 GAUGE, MEMBRANE PEELING, GAS FLUID EXCHANGE, ICG Jose Pabon MD [address] [place] [address], [address] [place] [address] [facility] Status Reason Specialty Diagnoses / Procedures Referre d By Contact Referred To Contact Diagnoses Vitreous hemorrhage (HCC) VITREOUS HEMORRHAGE Procedures MA VITRECTOMY,MECHANICAL VITRECTOMY 25 GAUGE, ANTERIOR CHAMBER WASHOUT Jose Pabon MD [address] [place] [address], [address] [place] [address] [facility] Status Reason Specialty Diagnoses / Procedures Referre d By Contact Referred To Contact Diagnoses RETINAL DETACHMENT LEFT EYE Procedures MA OFFICE/OUTPT VISIT,PROCEDURE ONLY VITRECTOMY 25 GAUGE, GAS FLUID EXCHANGE Jose Pabon MD [address] [place] [address], [address] [place] [address] [facility] Reason Comments Med Refill Reason Comments Follow-up 6m Reason Comments 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 Specialty Diagnoses / Procedures Referred By Aldo shafer Referred To Contact Cardiology Diagnoses Chest pain, unspecified type Shakira Mejia, DO [address] [place] [address] [facility] [address] [place] [address] Referral ID Status Reason Start Date Expiration Date Visits Requested Visits Authorized [id number] Pending Review Specialty Services Required 10/07/2023 10/06/2024 1 1 Reason Comments Follow-up EST PT F/U 6 MS ECHO DONE SCHED W/PT L/S MAS Reason Comments Vaginal Itching Vaginal Irritation Reason Comments Med Refill Reason Comments Follow-up Reason Comments Lichen Sclerosus INFORMATION SOURCE (unrecogn ized section and content) DATE CREATED AUTHOR 05/16/2020 [facility] DATE CREATED AUTHOR AUTHOR'S ORGANIZ ATION 05/29/2020 [facility] DATE CREATED AUTHOR AUTHOR'S ORGANIZ ATION 10/08/[address] [facility] DATE CREATED AUTHOR AUTHOR'S ORGANIZ ATION 07/16/2024 [facility] DATE CREATED AUTHOR AUTHOR'S ORGANIZ ATION 08/13/2024 [facility] DATE CREATED AUTHOR AUTHOR'S ORGANIZ ATION 10/19/2024 [facility] DATE CREATED AUTHOR AUTHOR'S ORGANIZ ATION 03/01/2025 [facility] Care Teams (unrecognized sec tion and content) Meat Loiner Relationship Specialty Start Date End Date Carroll Avitia MD [address] [place] [phone] PCP - General Family Medicine 10/04/23 Meat Loiner Relationship Specialty Start Date End Date Carroll Avitia MD [address] [place] [address] PCP - General Family Medicine 10/04/23 Meat Loiner Relationship Specialty Start Date End Date Carroll Avitia MD [address] [place] [address] PCP - General Family Medicine 10/04/23 Meat Loiner Relationship Specialty Start Date End Date Carroll Avitia MD PCP - General Family Medicine 01/26/19 Meat Loiner Relationship Specialty Start Date End Date Carroll Avitia MD [address] [facility] [place] [id number] PCP - General Family Medicine 01/26/19 Meat Loiner Relationship Specialty Start Date End Date Carroll Avitia MD [address] [facility] [place] [address] PCP - General Family Medicine 01/26/19 Meat Loiner Relationship Specialty Start Date End Date Carroll Avitia MD [address] [facility] [place] [address] PCP - General Family Medicine 01/26/19 Meat Loiner Relationship Specialty Start Date End Date Carroll Avitia MD [address] [facility] [place] [address] PCP - General Family Medicine 01/26/19 Meat Loiner Relationship Specialty Start Date End Date Carroll Avitia MD PCP - General Family Medicine 01/26/19 Meat Loiner Relationship Specialty Start Date End Date Carroll Avitia MD PCP - General Family Medicine 01/26/19 Meat Loiner Relationship Specialty Start Date End Date Carroll Avitia MD PCP - General Family Medicine 01/26/19 Meat Loiner Relationship Specialty Start Date End Date Carroll Avitia MD PCP - General Family Medicine 01/26/19 Meat Loiner Relationship Specialty Start Date End Date Carroll Avitia MD [address] [place] [facility] [address] PCP - General Family Medicine 10/04/23 Carroll Avitia MD [address] [place] [phone] PCP - ACO Reach 09/28/24 Meat Loiner Relationship Specialty Start Date End Date Carroll Avitia MD [address] [place] [phone] PCP - General Family Medicine 10/04/23 Carroll Avitia MD [address] [place] [phone] PCP - ACO Reach 09/28/24 Meat Loiner Relationship Specialty Start Date End Date Carroll Avitia MD [address] [place] [phone] PCP - General Family Medicine 10/04/23 Carroll Avitia MD [address] [place] [address] PCP - ACO Reach 09/28/24 Meat Loiner Relationship Specialty Start Date End Date Carroll Avitia MD [address] [place] [phone] PCP - General Family Medicine 10/04/23 Carroll Avitia MD [address] [place] [address] PCP - ACO Reach 09/28/24 Meat Loiner Relationship Specialty Start Date End Date Carroll Avitia MD [address] [place] [phone] PCP - General Family Medicine 10/04/23 Carroll Avitia MD [address] [place] [address] PCP - ACO Reach 09/28/24 Team Status: Active Member Role Status Dates Carroll Avitia MD Primary Care Provider Active Team Status: Inactive Member Role Status Dates Carroll Avitia MD Primary Care Provider Active S tart: April 29, 2025 End: April 29, 2025 Carroll Avitia MD Attending Provider Active Star t: April 29, 2025 End: April 29, 2025 Goals (unrecognized section and content) Goals may be documented in a n alternate section FOR RECORDS PERTAINING TO PATIENTS WHO ARE OR HAVE BEEN ENROLLED IN A CHEMICAL DEPENDENCY/SUBSTANCEABUSE PROGRAM, SOME INFORMATION MAY BE OMITTED. This clinical summary was aggregated from multiple sources. Caution should be exercised in using it in the provision of clinical care. This summary normalizes information from multiple sources, and as a consequence, information in this document may materially change the coding, format and clinical context of patient data. In addition, data may be omitted in some cases. CLINICAL DECISIONS SHOULD BE BASED ON THE PRIMARY CLINICAL RECORDS. [employer] [facility]. provides no warranty or guarantee of the accuracy or completeness of information in this document.
[2025-06-03 15:27] LABS: Free T3 1.76 pg/mL (2.18-3.98); Thyroid Stimulating Hormone 0.108 uIU/mL (0.358-3.740)
== END 2025-06-03 13:57 | disposition home or self-care (01) ==
LOC: RAD 13:58
PROVIDERS: PCP Family Medicine; Visit Provider Family Medicine
DX: E03.9 Hypothyroidism, unspecified (principal); M85.852 Other specified disorders of bone density and structure, left thigh; M85.88 Other specified disorders of bone density and structure, other site
CPT/HCPCS: 36415; 77080; 84439; 84443; 84481